=== PATIENT | female | born 1975 | race Caucasian/White ===

== ENCOUNTER 2017-05-17 07:01 | Day surgery (SDC) | payer BC ==
[~2017-05-17 07:01] MED LIST: Lactated Ringers 1,000 ML IV SCH; Sodium Chloride 0.9% 10 ML Syringe FLUSH PRN; Sodium Chloride 0.9% 2.5 ML Syringe FLUSH PRN; ceFAZolin 2 GM in Premix Bag 1 BAG IV ONE
--- NOTE | 2017-05-17 07:59 | PCM.PREANE ---
Preanesthetic Assessment - Anesthesia/Transfusion/Family Hx Anesthesia History: Prior Anesthesia Without Reaction Family History of Anesthesia Reaction: No Transfusion History: No Prior Transfusion(s) Intubation History: Unknown - Review of Systems General: No Symptoms Pulmonary: No Symptoms Cardiovascular: No Symptoms Gastrointestinal: No Symptoms Neurological: No Symptoms Other: Reports: None - Physical Assessment O2 Sat by Pulse Oximetry: 96 Respiratory Rate: 16 Vital Signs: Last Vital Signs Temp 36.8 C 05/17/17 07:16 Pulse 84 05/17/17 07:16 Resp 16 05/17/17 07:16 BP 132/87 05/17/17 07:16 Pulse Ox 96 05/17/17 07:16 Height: 1.65 m Weight: 95.708 kg ASA Class: 2 Mental Status: Alert & Oriented x3 Airway Class: Mallampati = 2 Dentition: Reports: Normal Dentition Thyro-Mental Finger Breadths: 3 Mouth Opening Finger Breadths: 2 ROM/Head Extension: Full Lungs: Clear to Auscultation, Normal Respiratory Effort Cardiovascular: Regular Rate, Regular Rhythm - Lab Values: Laboratory Last Values Urine HCG, Qual NEGATIVE (NEGATIVE) 05/17/17 07:06 - Allergies Allergies/Adverse Reactions: Allergies Allergy/AdvReac Type Severity Reaction Status Date / Time No Known Allergies Allergy Verified 02/11/16 13:22 - Blood Blood Available: No - Anesthesia Plan Pre-Op Medication Ordered: None Beta Mark: Metoprolol Med Last Dose Date: 05/17/17 Med Last Dose Time: 06:00 - Acknowledgements Anesthesia Type Planned: General Anesthesia Pt an Appropriate Candidate for the Planned Anesthesia: Yes Alternatives and Risks of Anesthesia Discussed w Pt/Guardian: Yes Pt/Guardian Understands and Agrees with Anesthesia Plan: Yes PreAnesthesia Questionnaire HEENT History: Reports: Other (See Below) Other HEENT History: wears glasses Cardiovascular History: Reports: Hypertension Respiratory History: Reports: None Gastrointestinal History: Reports: GERD, Hiatal Hernia Genitourinary History: Reports: None [facility] History: Reports: Musculoskeletal History: Reports: None Neurological History: Reports: None Psychiatric History: Reports: Anxiety, Depression Endocrine/Metabolic History: Reports: Obesity/BMI 30+ Hematologic History: Reports: None Immunologic History: Reports: None Oncologic (Cancer) History: Reports: Breast (left breast infiltrating ductal carcinoma) Dermatologic History: Reports: None - Past Surgical History Head Surgeries/Procedures: Reports: None GI Surgical History: Reports: Bariatric Procedure, Cholecystectomy Musculoskeletal Surgical History: Reports: Arthroscopic Knee (lt. ACL repair ' 16 (Dr Bowie)) Dermatological Surgical History: Reports: Plastic Surgical Reconstruction/ Repair (abdominoplasty) - SUBSTANCE USE Smoking Status *Q: Former Smoker Tobacco Use Within Last Twelve Months: Cigarettes Recreational Drug Use History: No - HOME MEDS Home Medications: Home Meds Metoprolol Succinate [Toprol XL 50mg] 50 mg PO DAILY 02/11/16 [History] Venlafaxine HCl [Venlafaxine HCl ER] 150 mg PO DAILY 02/11/16 [History] Pantoprazole Sodium 40 mg PO DAILY 05/15/17 [History] Sucralfate 1 gm PO QID 05/15/17 [History] - CURRENT (IN HOUSE) MEDS Current Meds: Current Medications Lactated Ringer's (Ringers, Lactated) 1,000 mls @ 125 mls/hr IV ASDIRECTED PAULO Last Admin: 05/17/17 07:17 Dose: 125 mls/hr Sodium Chloride (Saline Flush) 10 ml FLUSH ASDIRECTED PRN PRN Reason: Keep Vein Open Sodium Chloride (Saline Flush) 2.5 ml FLUSH ASDIRECTED PRN PRN Reason: Keep Vein Open Discontinued Medications Cefazolin Sodium/Dextrose 2 gm (/ Premix) 50 mls @ 100 mls/hr IV ONETIME ONE Stop: 05/15/17 10:07
[2017-05-17] MEDS ORDERED: fentaNYL 100 MCG/2 ML SDV IVPUSH PRN (08:52)
[2017-05-17] MEDS ORDERED: Lidocaine 1% 20 ML MDV INJECT STA (09:03)
--- NOTE | 2017-05-17 11:24 | US ---
EXAMINATION: Ultrasound guided left breast wire localization HISTORY: Breast cancer COMPARISON: 04/10/2017 TECHNIQUE: The procedure, risks, and benefits were discussed with the patient. Consent was obtained. The mass at the 2:00 position of the left breast was again identified. The overlying area was sterile ly prepped. 1% lidocaine was administered for local anesthesia. Using ultrasound guidance a wire loca lization needle was advanced through the mass and the hook was employed on the opposite side. The pat ient tolerated the procedure well. IMPRESSION: Successful ultrasound-guided wire localization of the left breast mass.
--- NOTE | 2017-05-17 14:06 | PCM.OPNOTE ---
- General Post-Op/Procedure Note Date of Surgery/Procedure: 05/17/17 Operative Procedure(s): Left breast sentinel lymph node biopsy and lumpectomy Findings: 4 lymph nodes in left axilla. Max jose count was 2000. Wire localized lumpectomy speciment with two re-resected posterior margins Pre Op Diagnosis: left breast invasive ductal carcinoma Post-Op Diagnosis: same Anesthesia Technique: General ET Tube Primary Surgeon: Ayla Arroyo Fluid Replacement, Intraop: 2,000 Output, Urine Amount: 100 EBL in mLs: 25 Condition: Good
[2017-05-17] MEDS ORDERED: Acetaminophen/oxyCODONE 325-5 MG Tab PO PRN (14:15)
--- NOTE | 2017-05-17 14:55 | OR ---
SURGEON: RANJIT SMITH MD DATE OF PROCEDURE: 05/17/2017 PREOPERATIVE DIAGNOSIS: Invasive ductal carcinoma of the left breast. POSTOPERATIVE DIAGNOSIS: Invasive ductal carcinoma of the left breast. PROCEDURE PERFORMED: Left breast sentinel lymph node biopsy and wire localized lumpectomy. ANESTHESIA: General endotracheal anesthesia. FLUIDS: 2000 mL crystalloid. URINE OUTPUT: 100 mL. ESTIMATED BLOOD LOSS: 25 mL. FINDINGS: Four lymph nodes in the left axilla, Max's [place] count was 2000, wire localized lumpectomy specimen with 2 reresected posterior margins. COMPLICATIONS: None. INDICATIONS: The patient is a 41-year-old female who recently had a mass discovered on mammogram. This was biopsied and found to be invasive ductal carcinoma. The patient has no clinical lymphadenopathy. After discussion of the surgical options, the patient would like to undergo a wire localized left breast lumpectomy and sentinel lymph node biopsy. We discussed the procedure, expected perioperative course, and risks including bleeding, infection, or damage to surrounding structures. The patient verbalized understanding and wishes to proceed. PROCEDURE IN DETAIL: The patient was brought into the OR and placed on the OR table in supine position with the left arm out on an arm board. A time-out was completed verifying the patient's name, age, date of , allergies, and procedure to be performed. General endotracheal anesthesia was induced. The chest and left arm were prepped and draped in usual standard fashion. A 1% Lymphazurin blue was injected in circumferential fashion around the areola. The area was then massaged for 5 minutes. A Jesusita counter was then used to locate an area of maximum intensity in the left axilla. The highest count I received on the skin was around 300. A curvilinear incision was made over the medial inferior border of the axillary hair. The area was first anesthetized with 0.5% Marcaine plain. Cautery was used to dissect down to the subcutaneous fat. I identified a lymphatic channel that traveled down to the axillary fat. I followed this using blunt dissection with retractors and sharp dissection with a Metzenbaum scissors. I used the Jesusita counter to guide me to the area of the hottest node. I identified a blue lymph node and excised it in the fat around it. The 1st specimen I excised the Jesusita count of 1200. There was still radioactivity in the axilla and I dissected down further into the axillary fat, discovered a large lymph node that appeared blue. This Jesusita count was 2000. I excised this piece. I then placed the Jesusita counter back in the axilla and no further radioactivity was noted. The axillary fat and associated lymph nodes were then sent to pathology for frozen section labeled as axillary lymph nodes. I then turned my attention to the left breast. The patient had a wire in the left upper outer quadrant. A curvilinear incision was made extending superiorly up the breast. This was based on the direction of the wire and mammographic orientation. I dissected down approximately 2 cm and then began my dissection widely around my lumpectomy specimen. Along my posterior margin, I encountered the tip of the wire. I then took a deeper resection margin along the posterior wall and removed the lumpectomy specimen. All four sides were oriented with a silk suture. Upon inspecting my resection margin, I felt the posterior wall was somewhat superficial. I reresected an approximately 1 cm x 1 cm area at the base. This was sent as posterior reresection margin. The specimen was then sent to radiology where mammographic image was taken. The specimen contained the wire and the mammographic abnormality. I spoke with the pathologist, who was concerned that the posterior margin was closed. My reresected margin had no tumor burden, but there was an area more anterior to this where my margin was closed. I returned to the operating room, and reresected a posterior wedge of tissue. This was sent to the pathologist and was negative for any tumor burden. Hemostasis was achieved with cautery. The breast mound covered the defect nicely. I marked my posterior margin with small clips. Hemostasis was achieved using cautery at the lumpectomy site. The hemostasis was achieved in the axillary region with clips and cautery. Frozen section of my axillary tissue noted 4 lymph nodes that did not appear to have tumor cells in them. The wounds were then closed with interrupted 3-0 Vicryl and the subcutaneous fat and a running 4-0 Monocryl sutures in the subcuticular space. Steri-Strips and sterile dressings were applied. The patient tolerated procedure well and was taken to PACU in stable condition. JOHN PAUL TURCIOS /[id number]
--- NOTE | 2017-05-17 15:17 | NM ---
EXAMINATION: Left breast lymphoscintigraphy HISTORY: Breast cancer TECHNIQUE: The left periareolar region was cleaned with ChloraPrep. A total of 8 intradermal injectio ns were performed using a total of 0.8 mL of a solution containing 1 mL of saline and 1 mCi of techne tium 99 M labeled sulfur colloid. FINDINGS/IMPRESSION: Initially a single focus of uptake is noted at the approximate 11:00 position of the left breast in the upper inner quadrant. An adjacent focus shows up with subsequent imaging. The se likely represent intramammary lymph nodes. No definite activity is noted within the left axillary region x 1 h.
[2017-05-17 15:39] VITALS: BP 122/63
--- NOTE | 2017-05-17 15:58 | MY ---
EXAMINATION: Surgical specimen HISTORY: Left breast cancer COMPARISON: 03/29/2017 TECHNIQUE: Specimen mammograms obtained. FINDINGS: Imaging of the specimen demonstrates the spiculated mass of concern on the primary specimen . Mammographically clear margins cannot confirmed along the inferior aspect of the specimen opposite of the suture. However a second small specimen sample was also obtained. IMPRESSION: 1. The surgical specimen demonstrates the mass of concern.
== END 2017-05-17 15:44 | disposition home or self-care (01) ==
LOC: MW.NM 07:01 → MW.SDS 07:01 → EDSTATUS 09:15 → MW.SDS 15:44 → MW.NM 15:44
PROVIDERS: ATTEND Surgery
DX: C50.912 Malignant neoplasm of unspecified site of left female breast (principal); Z92.89 Personal history of other medical treatment
CPT/HCPCS: 19286; 76098; 78195; 81025; 88305; 88307; 88309; 88331; 88332; A9541; J0690; J7120; 01610

== ENCOUNTER 2019-09-09 06:29 | Day surgery (SDC) | payer BC ==
[~2019-09-09 06:29] MED LIST changes: +Sodium Chloride 0.9% 10 ML SDV IV PRN
[2019-09-09] MEDS ORDERED: Bupivacaine 0.5% 10 ML SDV ONE (07:16)
[2019-09-09] MEDS ORDERED: Lidocaine 1% 20 ML MDV ONE (07:17)
[2019-09-09] MEDS ORDERED: Heparin Sodium 100 Units/ML 3 ML Syringe ONE (07:17)
--- NOTE | 2019-09-09 07:25 | PCM.PREANE ---
Preanesthetic Assessment - Anesthesia/Transfusion/Family Hx Anesthesia History: Prior Anesthesia Without Reaction (mast with reconst in [place] last month) Family History of Anesthesia Reaction: No Transfusion History: No Prior Transfusion(s) Intubation History: Unknown - Review of Systems General: No Symptoms Pulmonary: No Symptoms Cardiovascular: No Symptoms Gastrointestinal: No Symptoms Neurological: No Symptoms Other: Reports: None - Physical Assessment NPO Status Date: 09/08/19 Vital Signs: Last Vital Signs Temp 97.7 F 09/09/19 07:05 Pulse 89 09/09/19 07:05 Resp 16 09/09/19 07:05 BP 134/89 09/09/19 07:05 Pulse Ox 94 L 09/09/19 07:05 Height: 5 ft 5 in Weight: 98.883 kg ASA Class: 2 Mental Status: Alert & Oriented x3 Airway Class: Mallampati = 2 Dentition: Reports: Broken Tooth/Teeth, Caries ROM/Head Extension: Full Lungs: Clear to Auscultation, Normal Respiratory Effort Cardiovascular: Regular Rate, Regular Rhythm - Allergies Allergies/Adverse Reactions: Allergies Allergy/AdvReac Type Severity Reaction Status Date / Time No Known Allergies Allergy Verified 09/09/19 07:05 - Blood Blood Available: No - Anesthesia Plan Pre-Op Medication Ordered: None - Acknowledgements Anesthesia Type Planned: General Anesthesia Pt an Appropriate Candidate for the Planned Anesthesia: Yes Alternatives and Risks of Anesthesia Discussed w Pt/Guardian: Yes Pt/Guardian Understands and Agrees with Anesthesia Plan: Yes Additional Comments: PMH: breast ca, smoker, HTN, poor dentition PLAN: ga PreAnesthesia Questionnaire HEENT History: Reports: Other (See Below) Other HEENT History: wears glasses Cardiovascular History: Reports: Hypertension Respiratory History: Reports: None Gastrointestinal History: Reports: GERD, Hiatal Hernia Genitourinary History: Reports: None [employer] History: Reports: Musculoskeletal History: Reports: None Neurological History: Reports: None Psychiatric History: Reports: Anxiety, Depression Endocrine/Metabolic History: Reports: Obesity/BMI 30+ Hematologic History: Reports: B12 Deficiency Immunologic History: Reports: Immunosuppression Oncologic (Cancer) History: Reports: Breast Dermatologic History: Reports: None - Past Surgical History Head Surgeries/Procedures: Reports: None HEENT Surgical History: Reports: None Respiratory Surgical History: Reports: None GI Surgical History: Reports: Bariatric Procedure, Cholecystectomy, Other (See Below) Other GI Surgeries/Procedures: Abdominoplasty Female Surgical History: Reports: Breast Biopsy, Mastectomy, Other (See Below ) Other Female Surgeries/Procedures: breast biopsy, sentinal node bx, bilateral mastectomy with reconstruction Neurological Surgical History: Reports: None Musculoskeletal Surgical History: Reports: Arthroscopic Knee Other Musculoskeletal Surgeries/Procedures:: left ACL repair Oncologic Surgical History: Reports: None Dermatological Surgical History: Reports: Plastic Surgical Reconstruction/Repair - SUBSTANCE USE Smoking Status *Q: Former Smoker Tobacco Use Within Last Twelve Months: Cigarettes Recreational Drug Use History: No - HOME MEDS Home Medications: Home Meds Metoprolol Succinate [Toprol XL 50mg] 50 mg PO QAM 02/11/16 [History] Venlafaxine HCl [Venlafaxine HCl ER] 150 mg PO DAILY 02/11/16 [History] Pantoprazole Sodium 40 mg PO DAILY 05/15/17 [History] - CURRENT (IN HOUSE) MEDS Current Meds: Current Medications Lactated Ringer's (Ringers, Lactated) 1,000 mls @ 125 mls/hr IV ASDIRECTED PAULO Last Admin: 09/09/19 07:04 Dose: 125 mls/hr Sodium Chloride (Saline Flush) 10 ml FLUSH ASDIRECTED PRN PRN Reason: Keep Vein Open Sodium Chloride (Saline Flush) 2.5 ml FLUSH ASDIRECTED PRN PRN Reason: Keep Vein Open Sodium Chloride (Normal Saline) 10 ml IV ASDIRECTED PRN PRN Reason: IV Use Discontinued Medications Bupivacaine HCl (Sensorcaine-Mpf 0.5%) Confirm Administered Dose 10 ml .ROUTE .STK-MED ONE Stop: 09/09/19 07:17 Heparin Sodium (Porcine) (Heparin Lock Flush 100 Units/Ml) Confirm Administered Dose 600 unit .ROUTE .STK-MED ONE Stop: 09/09/19 07:18 Cefazolin Sodium/Dextrose 2 gm (/ Premix) 50 mls @ 100 mls/hr IV ONETIME ONE Stop: 09/08/19 15:47 Lidocaine HCl (Xylocaine 1%) Confirm Administered Dose 20 ml .ROUTE .STK-MED ONE Stop: 09/09/19 07:18
[2019-09-09] MEDS ORDERED: Atropine 0.1 MG/ML 10 ML Syringe IVPUSH PRN ×2 (09:00)
[2019-09-09] MEDS ORDERED: 50% Dextrose in Water 50 ML Syringe IVPUSH PRN (09:00)
[2019-09-09] MEDS ORDERED: Naloxone 0.4 MG/ML Syringe IVPUSH PRN (09:00)
[2019-09-09] MEDS ORDERED: Albuterol 0.083% 2.5 MG/3 ML Neb Soln NEB PRN (09:00)
[2019-09-09] MEDS ORDERED: fentaNYL 100 MCG/2 ML SDV IVPUSH PRN (09:00)
[2019-09-09] MEDS ORDERED: EPINEPHrine 1:10,000 1 MG/10 ML Syringe IVPUSH PRN (09:00)
[2019-09-09] MEDS ORDERED: Midazolam 1 MG/ML 2 ML SDV ONE (09:14)
[2019-09-09] MEDS ORDERED: fentaNYL 100 MCG/2 ML SDV ONE (09:14)
[2019-09-09] MEDS ORDERED: Propofol 200 MG/20 ML SDV ONE (09:14)
[2019-09-09] MEDS ORDERED: Ketorolac 30 MG/ML SDV ONE (09:29)
[2019-09-09] MEDS ORDERED: ceFAZolin 1 GM Vial ONE (10:27)
[2019-09-09] MEDS ORDERED: Sodium Chloride 0.9% 20 ML ONE (10:27)
[2019-09-09] MEDS ORDERED: Octyl 2-Cyanoacrylate 1 Tube ONE (11:11)
--- NOTE | 2019-09-09 11:28 | PCM48HPAN ---
Post Anesthesia Note - EVALUATION WITHIN 48HRS OF ANESTHETIC Vital Signs in Normal Range: Yes Patient Participated in Evaluation: Yes Respiratory Function Stable: Yes Airway Patent: Yes Cardiovascular Function Stable: Yes Hydration Status Stable: Yes Pain Control Satisfactory: Yes Nausea and Vomiting Control Satisfactory: Yes Mental Status Recovered: Yes Vital Signs: Last Vital Signs Temp 97.7 F 09/09/19 07:05 Pulse 89 09/09/19 07:05 Resp 16 09/09/19 07:05 BP 134/89 09/09/19 07:05 Pulse Ox 94 L 09/09/19 07:05 - COMMENTS/OBSERVATIONS Free Text/Narrative:: bypassed phase 1 PACU, after MAC anesthesia
--- NOTE | 2019-09-09 11:29 | PCM.OPNOTE ---
- General Post-Op/Procedure Note Date of Surgery/Procedure: 09/09/19 Operative Procedure(s): Right internal jugular port a cath placement Findings: Right internal jugular port a cath placement Pre Op Diagnosis: Breast cancer Post-Op Diagnosis: same Anesthesia Technique: Local, MAC Primary Surgeon: Ayla Arroyo Fluid Replacement, Intraop: 1,000 EBL in mLs: 10 Condition: Good
--- NOTE | 2019-09-09 12:46 | CR ---
Chest: 2 fluoroscopic spot views were obtained of the right upper chest utilizing C-arm device. Study shows placement of Port-A-Cath. Tip of the catheter lies within the area of the superior vena cava. Fluoroscopy time given as 46.4 seconds. Impression: 1. Procedural study as noted above. Diagnostic code #1 This report was dictated in MDT
--- NOTE | 2019-09-09 12:46 | CR ---
Chest: Portable view of the chest was obtained. Comparison: No prior chest imaging is available. Heart size and mediastinum are normal. Right-sided infusion port is seen. Lungs are clear with no acute parenchymal change. Surgical clips are seen within the left axillary region. Impression: 1. Right-sided infusion port. This appears satisfactory in position. 2. Nothing acute seen on frontal chest x-ray. Diagnostic code #2 This report was dictated in MDT
[2019-09-09 13:18] VITALS: BP 123/75; PULSE 83
--- NOTE | 2019-09-09 14:51 | OR ---
SURGEON: AYLA ARROYO MD DATE OF PROCEDURE: 09/09/2019 PREOPERATIVE DIAGNOSIS: Breast cancer. POSTOPERATIVE DIAGNOSIS: Breast cancer. PROCEDURE PERFORMED: Right internal jugular Port-A-Cath placement. PRIMARY SURGEON: Ayla Arroyo MD ANESTHESIA: MAC, local. FLUIDS: 1000 mL of crystalloid. ESTIMATED BLOOD LOSS: 10 mL. FINDINGS: Right internal jugular Port-A-Cath placement. COMPLICATIONS: None. INDICATIONS: The patient is a 43-year-old female with recurrent breast cancer. She will be undergoing chemotherapy and is in need of a Port-A-Cath placement. The patient and I discussed the procedure, expected perioperative course, and risks. She verbalized understanding and wishes to proceed. PROCEDURE IN DETAIL: The patient was brought into the OR and placed on the OR table in supine position. A time-out was completed verifying the patient's name, age, date of , allergies, and procedure to be performed. Monitored anesthesia care was induced. Using ultrasound, I verified the vascular anatomy of the right side of the neck. A photograph of this was taken and placed in the patient's chart. The arms were tucked at the patient's side and a roll placed under her shoulders. The neck and chest were then prepped and draped in usual standard fashion. The patient was placed into reverse Trendelenburg position. An ultrasound was used to reverify the vascular anatomy of the neck. I then anesthetized the area overlying the right internal jugular vein as well as the right anterior chest wall and the catheter tract with 0.5% Marcaine plain and 1% lidocaine plain. Once the patient was adequately anesthetized, I placed a guide needle into the right internal jugular vein under ultrasound guidance. A good return of venous blood was noted. A guidewire was placed down the needle into the chest. It was secured on the drapes. I then used an ultrasound to verify that the guidewire was in the right internal jugular vein. Fluoroscopy was brought in and verified placement of the guidewire into the vena cava. I then turned my attention to the right side of the chest. I made a 3 cm incision using a 15 blade. Approximately, it was 3 fingerbreadths below the lateral right clavicle. Cautery was used to carry this through to the subcutaneous tissues. The subcutaneous pocket where the port would lie was then created as well. The field was made hemostatic. I then used a tunneling device to tunnel the catheter tubing from the chest site up to the neck insertion site. A vascular dilator and sheath were then placed over the guidewire. I dilated up my vascular tract under fluoroscopic guidance. The dilator and guidewire were removed. The catheter tubing was then placed down the vascular sheath into the chest under fluoroscopic guidance. The vascular sheath was peeled away. I then pulled back on the catheter tubing so that the tip of the catheter was in the superior vena cava. The catheter was then aspirated and good return of venous blood was noted. It was flushed with injectable saline. I then trimmed the catheter tubing to 23 cm and placed the Port-A-Cath device on the tubing itself. The Port-A-Cath was placed into the chest, the subcutaneous chest wall pocket. It was secured on either side with interrupted 2-0 Prolene sutures. The port was then accessed and a good return of venous blood was noted. It was then locked with 3 mL of heparinized saline. The incision was then closed with interrupted 3-0 Vicryl in the subcutaneous fat layer and the skin was closed with a running 4-0 Monocryl stitch. The insertion site on the neck was closed with an interrupted 4-0 Monocryl suture. Dermabond and sterile dressings were applied. The patient tolerated the procedure well. She was taken to the postoperative care area in stable condition. All counts were complete and correct at the end of the case. JOHN PAUL TURCIOS /[id number]
== END 2019-09-09 12:20 | disposition home or self-care (01) ==
LOC: MW.SDS 06:29
PROVIDERS: ATTEND Surgery
DX: C50.912 Malignant neoplasm of unspecified site of left female breast (principal); I10 Essential (primary) hypertension; F17.210 Nicotine dependence, cigarettes, uncomplicated; E66.9 Obesity, unspecified; Z90.13 Acquired absence of bilateral breasts and nipples; Z79.899 Other long term (current) drug therapy; Z98.890 Other specified postprocedural states; Z68.36 Body mass index [BMI] 36.0-36.9, adult
CPT/HCPCS: 36561; 71045; 76000; 81025; A9270; J0690; J1642; J2001; J2250; J2704; J3010; J3490; J7120; J1885

== ENCOUNTER 2019-09-15 20:13 | Observation (INO) | payer BC ==
[2019-09-15] MEDS ORDERED: Sodium Chloride 0.9% 1,000 ML IV ONE (21:01)
[2019-09-15 21:39] LABS: CARBON DIOXIDE,CO2 23.9 mmol/L (21.0-32.0); POTASSIUM,K 3.9 mmol/L (3.5-5.1)
[2019-09-15] MEDS ORDERED: Piperacillin/Tazobactam 4.5 GM in Sodium Chloride 0.9% 100 ML IV SCH (22:00)
[2019-09-15] MEDS ORDERED: Acetaminophen 325 MG Tab PO PRN (22:12)
--- NOTE | 2019-09-15 22:16 | EDM.PDOC ---
ED HPI GENERAL MEDICAL PROBLEM - General Chief Complaint: General Stated Complaint: FEVER & BODY ACHE Time Seen by Provider: 09/15/19 20:44 Source of Information: Reports: Patient History Limitations: Reports: No Limitations - History of Present Illness INITIAL COMMENTS - FREE TEXT/NARRATIVE: Patient is a 43-year-old female who is complaining of having fever and body aches which started today and have gotten worse. Patient's temperature at home was 102. She did take some Tylenol prior to arrival. Patient had a Port-A-Cath placed 1 week ago and the area surrounding the Port-A-Cath is very tender and warm to touch and erythematous. Patient denies any nausea or vomiting or diarrhea. She denies any dysuria or hematuria. She has no cough or shortness of breath or chest pain. She denies any pain in her back. She denies a headache or sore throat or sinus pressure. There is no other source of infection other than her recently placed port. She has no other complaints. Onset: Today - Related Data Allergies Allergy/AdvReac Type Severity Reaction Status Date / Time No Known Allergies Allergy Verified 09/09/19 07:05 Home Meds: Home Meds Metoprolol Succinate [Toprol XL 50mg] 50 mg PO QAM 02/11/16 [History] Venlafaxine HCl [Venlafaxine HCl ER] 150 mg PO DAILY 02/11/16 [History] Pantoprazole Sodium 40 mg PO DAILY 05/15/17 [History] Past Medical History HEENT History: Reports: Other (See Below) Other HEENT History: wears glasses Cardiovascular History: Reports: Hypertension Respiratory History: Reports: None Gastrointestinal History: Reports: GERD, Hiatal Hernia Genitourinary History: Reports: None [employer]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: Musculoskeletal History: Reports: None Neurological History: Reports: None Psychiatric History: Reports: Anxiety, Depression Endocrine/Metabolic History: Reports: Obesity/BMI 30+ Hematologic History: Reports: B12 Deficiency Immunologic History: Reports: Immunosuppression Oncologic (Cancer) History: Reports: Breast Dermatologic History: Reports: None - Past Surgical History Head Surgeries/Procedures: Reports: None HEENT Surgical History: Reports: None Respiratory Surgical History: Reports: None GI Surgical History: Reports: Bariatric Procedure, Cholecystectomy, Other (See Below) Other GI Surgeries/Procedures: Abdominoplasty Female Surgical History: Reports: Breast Biopsy, Mastectomy, Other (See Below ) Other Female Surgeries/Procedures: breast biopsy, sentinal node bx, bilateral mastectomy with reconstruction Neurological Surgical History: Reports: None Musculoskeletal Surgical History: Reports: Arthroscopic Knee Other Musculoskeletal Surgeries/Procedures:: left ACL repair Oncologic Surgical History: Reports: None Dermatological Surgical History: Reports: Plastic Surgical Reconstruction/Repair ED ROS GENERAL - Review of Systems Review Of Systems: Comprehensive ROS is negative, except as noted in HPI. ED EXAM, GENERAL - Physical Exam Exam: See Below Exam Limited By: No Limitations General Appearance: Alert, No Apparent Distress Head: Atraumatic, Normocephalic Neck: Normal Inspection, Supple Respiratory/Chest: No Respiratory Distress, Lungs Clear, Normal Breath Sounds Cardiovascular: Regular Rate, Rhythm, No JVD Extremities: Normal Inspection Neurological: Alert, Oriented, CN II-XII Intact Psychiatric: Normal Affect, Normal Mood Skin Exam: Warm, Dry Lymphatic: No Adenopathy Course - Vital Signs Text/Narrative:: Patient's white blood cell count is 10.4 with 81% neutrophils. Her lactate returned at 2.2. Initial heart rate was 113. Patient was given a liter of fluid and Dr. Rowland was called who came to the department assessed her and is admitting her for IV antibiotics. Patient's been started on Zosyn 4.5 g IV. Cultures were drawn prior to this. Last Recorded V/S: Last Vital Signs Temp 36.8 C 09/15/19 20:49 Pulse 113 H 09/15/19 20:49 Resp 18 09/15/19 20:49 BP 143/75 H 09/15/19 20:49 Pulse Ox 97 09/15/19 20:49 - Orders/Labs/Meds Orders: Active Orders 24 hr Category Date Time Status Notify Provider Consults [RC] ASDIRECTED Care 09/15/19 22:05 Active Consult to Physician [CONS] Stat Cons 09/15/19 22:05 Active CULTURE BLOOD [BC] Stat Lab 09/15/19 21:10 Received CULTURE BLOOD [BC] Stat Lab 09/15/19 21:42 Received Piperacillin/Tazobactam [Piperacil-Tazobact] 4.5 gm Med 09/15/19 22:00 Active Sodium Chloride 0.9% [Normal Saline] 100 ml IV Q8H Blood Culture x2 Reflex Set [OM.PC] Stat Oth 09/15/19 21:01 Ordered Medication Orders Piperacillin Sod/Tazobactam (Sod 4.5 gm/ Sodium Chloride) 100 mls @ 100 mls/hr IV Q8H [facility] Labs: Laboratory Tests 09/15/19 09/15/19 09/15/19 Range/Units 21:10 21:10 21:10 WBC 10.54 (4.0-11.0) K/uL RBC 3.93 L (4.30-5.90) M/uL Hgb 11.2 L (12.0-16.0) g/dL Hct 35.6 L (36.0-46.0) % MCV 90.6 (80.0-98.0) fL MCH 28.5 (27.0-32.0) pg MCHC 31.5 (31.0-37.0) g/dL RDW Std Deviation 54.6 (28.0-62.0) fl RDW Coeff of Dionicio 17 H (11.0-15.0) % Plt Count 309 (150-400) K/uL MPV 9.20 (7.40-12.00) fL Neut % (Auto) 91.1 H (48.0-80.0) % Lymph % (Auto) 3.8 L (16.0-40.0) % [place] % (Auto) 3.8 (0.0-15.0) % Eos % (Auto) 1.2 (0.0-7.0) % Baso % (Auto) 0.1 (0.0-1.5) % Neut # (Auto) 9.6 H (1.4-5.7) K/uL Lymph # (Auto) 0.4 L (0.6-2.4) K/uL [place] # (Auto) 0.4 (0.0-0.8) K/uL Eos # (Auto) 0.1 (0.0-0.7) K/uL Baso # (Auto) 0.0 (0.0-0.1) K/uL Nucleated RBC % 0.0 /100WBC Nucleated RBCs # 0 K/uL Lactate 2.2 H* (0.20-2.00) mmol/L Sodium 133 L (136-145) mmol/L Potassium 3.9 (3.5-5.1) mmol/L Chloride 98 (98-107) mmol/L Carbon Dioxide 23.9 (21.0-32.0) mmol/L BUN 11 (7.0-18.0) mg/dL Creatinine 1.0 (0.6-1.0) mg/dL Est Cr Clr Drug Dosing 63.93 mL/min Estimated GFR (MDRD) 60.0 ml/min Glucose 103 (74-106) mg/dL Calcium 8.0 L (8.5-10.1) mg/dL Total Bilirubin 0.3 (0.2-1.0) mg/dL AST 30 (15-37) IU/L ALT 27 (14-63) IU/L Alkaline Phosphatase 154 H (46-116) U/L Total Protein 7.0 (6.4-8.2) g/dL Albumin 3.3 L (3.4-5.0) g/dL Globulin 3.7 (2.6-4.0) g/dL Albumin/Globulin Ratio 0.9 (0.9-1.6) Meds: Medications Generic Name Dose Route Start Last Admin Trade Name Freq PRN Reason Stop Dose Admin Piperacillin Sod/Tazobactam 100 mls @ 100 mls/hr 09/15/19 22:00 Sod 4.5 gm/ Sodium Chloride IV Q8H PAULO Discontinued Medications Generic Name Dose Route Start Last Admin Trade Name Freq PRN Reason Stop Dose Admin Sodium Chloride 1,000 mls @ 999 mls/hr 09/15/19 21:01 09/15/19 21:17 Normal Saline IV 09/15/19 22:01 999 mls/hr .BOLUS ONE Administration Departure - Departure Time of Disposition: 22:15 Disposition: Refer to Observation Condition: Good Clinical Impression: Catheter-related bloodstream infection - Discharge Information Referrals: Ayla Arroyo MD [Primary Care Provider] - Sepsis Event Note - Evaluation Sepsis Screening Result: No Definite Risk - Focused Exam Vital Signs: Vital Signs Temp Pulse Resp BP Pulse Ox 09/15/19 20:49 36.8 C 113 H 18 143/75 H 97 Date Exam was Performed: 09/15/19 Time Exam was Performed: 22:11 - My Orders Last 24 Hours: My Active Orders 09/15/19 21:01 Blood Culture x2 Reflex Set [OM.PC] Stat 09/15/19 21:10 CULTURE BLOOD [BC] Stat 09/15/19 21:42 CULTURE BLOOD [BC] Stat 09/15/19 22:00 Piperacillin/Tazobactam [Piperacil-Tazobact] 4.5 gm Sodium Chloride 0.9% [ Normal Saline] 100 ml IV Q8H 09/15/19 22:05 Notify Provider Consults [RC] ASDIRECTED Consult to Physician [CONS] Stat - Assessment/Plan Last 24 Hours: My Active Orders 09/15/19 21:01 Blood Culture x2 Reflex Set [OM.PC] Stat 09/15/19 21:10 CULTURE BLOOD [BC] Stat 09/15/19 21:42 CULTURE BLOOD [BC] Stat 09/15/19 22:00 Piperacillin/Tazobactam [Piperacil-Tazobact] 4.5 gm Sodium Chloride 0.9% [ Normal Saline] 100 ml IV Q8H 09/15/19 22:05 Notify Provider Consults [RC] ASDIRECTED Consult to Physician [CONS] Stat
--- NOTE | 2019-09-15 22:20 | PCM.HP.2 ---
H&P History of Present Illness - General Date of Service: 09/15/19 Admit Problem/Dx: Admission Diagnosis/Problem Admission Diagnosis/Problem Fever, cellulitis at port site Source of Information: Patient History Limitations: Reports: No Limitations - History of Present Illness Initial Comments - Free Text/Narative: Patient is a 43-year-old female who recently underwent placement of a port in her right internal jugular vein with port placement on the right anterior chest wall. This is for chemotherapy. Following recurrent breast cancer. She recently underwent bilateral mastectomy with reconstruction. That was done in July of this year. She is now going to start chemotherapy and has had her port placed within the last 7-10 days. This was done by Dr. Mcmahan. This afternoon she developed a temperature to 102.0. She did take some Tylenol, but her symptoms persisted. She also noticed some rigors with this and presented to the emergency room. She was noted to have erythema around her chest wall, insertion site. She is now being admitted for parenteral antibiotic therapy. Onset of Symptoms: Reports: Today Symptom Onset Date: 09/15/19 Symptom Onset Time: 14:00 Location: Reports: Chest, Other Quality: Reports: Pressure Severity: Moderate Improves with: Reports: Rest Worsens with: Reports: None Context: Reports: Sick Contact Associated Symptoms: Reports: Fever/Chills, Malaise. Denies: Confusion, Chest Pain, Cough, Headaches, Nausea/Vomiting, Rash, Seizure, Shortness of Breath, Syncope - Related Data Allergies/Adverse Reactions: Allergies Allergy/AdvReac Type Severity Reaction Status Date / Time No Known Allergies Allergy Verified 09/09/19 07:05 Home Medications: Home Meds Metoprolol Succinate [Toprol XL 50mg] 50 mg PO QAM 02/11/16 [History] Venlafaxine HCl [Venlafaxine HCl ER] 150 mg PO DAILY 02/11/16 [History] Pantoprazole Sodium 40 mg PO DAILY 05/15/17 [History] Past Medical History HEENT History: Reports: Other (See Below) Other HEENT History: wears glasses Cardiovascular History: Reports: Hypertension Respiratory History: Reports: None Gastrointestinal History: Reports: GERD, Hiatal Hernia Genitourinary History: Reports: 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 History: Reports: None Neurological History: Reports: None Psychiatric History: Reports: Anxiety, Depression Endocrine/Metabolic History: Reports: Obesity/BMI 30+ Hematologic History: Reports: B12 Deficiency Immunologic History: Reports: Immunosuppression Oncologic (Cancer) History: Reports: Breast Dermatologic History: Reports: None - Past Surgical History Head Surgeries/Procedures: Reports: None HEENT Surgical History: Reports: None Respiratory Surgical History: Reports: None GI Surgical History: Reports: Bariatric Procedure, Cholecystectomy, Other (See Below) Other GI Surgeries/Procedures: Abdominoplasty Female Surgical History: Reports: Breast Biopsy, Mastectomy, Other (See Below ) Other Female Surgeries/Procedures: breast biopsy, sentinal node bx, bilateral mastectomy with reconstruction Neurological Surgical History: Reports: None Musculoskeletal Surgical History: Reports: Arthroscopic Knee Other Musculoskeletal Surgeries/Procedures:: left ACL repair Oncologic Surgical History: Reports: None Dermatological Surgical History: Reports: Plastic Surgical Reconstruction/Repair H&P Review of Systems - Review of Systems: Review Of Systems: See Below General: Reports: Fever, Chills, Malaise, Weakness. Denies: Fatigue, Night Sweats, Diaphoresis HEENT: Denies: Headaches Pulmonary: Denies: Shortness of Breath, Wheezing, Cough Cardiovascular: Denies: Chest Pain, Palpitations, Dyspnea on Exertion, Orthopnea Gastrointestinal: Denies: Abdominal Pain, Anorexia, Black Stool, Bloody Stool, Nausea, Vomiting Genitourinary: Denies: Dysuria, Frequency, Burning, Pain, Urgency Musculoskeletal: Reports: Neck Pain (right side). Denies: Shoulder Pain Skin: Reports: Erythema (right anterior chest wall site), Wound (fresh right anterior chest incision for port). Denies: Cyanosis, Jaundice, Mottled, Pallor , Diaphoresis, Dryness Neurological: Denies: Confusion, Dizziness, Headache, Numbness, Trouble Speaking Hematologic/Lymphatic: Reports: No Symptoms Immunologic: Reports: No Symptoms Exam - Exam Exam: See Below - Vital Signs Vital Signs: Last Vital Signs Temp 98.3 F 09/15/19 20:49 Pulse 113 H 09/15/19 20:49 Resp 18 09/15/19 20:49 BP 143/75 H 09/15/19 20:49 Pulse Ox 97 09/15/19 20:49 Weight: 217 lb - Exam Quality Assessment: Central Line/PICC (port, right chest). No: Supplemental Oxygen, Skin Breakdown General: Alert, Oriented, Cooperative, Mild Distress HEENT: Conjunctiva Clear, EOMI, Nares Patent, Pupils Equal, Pupils Reactive Neck: Supple, Trachea Midline Lungs: Clear to Auscultation. No: Decreased Breath Sounds, Crackles Cardiovascular: Regular Rate, Regular Rhythm, Tachycardia. No: Systolic Murmur , Diastolic Murmur GI/Abdominal Exam: Normal Bowel Sounds, Soft, Non-Tender, No Distention (Female) Exam: Deferred Rectal (Female) Exam: Deferred Extremities: Normal Inspection, Non-Tender Peripheral Pulses: 4+: Posterior Tibial (L), Posterior Tibial (R), Dorsalis Pedis (L), Dorsalis Pedis (R) Skin: Warm, Dry, Intact, Incision (right anterior chest) Psychiatric: Alert, Normal Affect, Normal Mood, Anxious. No: Labile Mood, Depressed, Agitated - Patient Data Lab Results Last 24 hrs: Laboratory Results - last 24 hr 09/15/19 09/15/19 09/15/19 Range/Units 21:10 21:10 21:10 WBC 10.54 (4.0-11.0) K/uL RBC 3.93 L (4.30-5.90) M/uL Hgb 11.2 L (12.0-16.0) g/dL Hct 35.6 L (36.0-46.0) % MCV 90.6 (80.0-98.0) fL MCH 28.5 (27.0-32.0) pg MCHC 31.5 (31.0-37.0) g/dL RDW Std Deviation 54.6 (28.0-62.0) fl RDW Coeff of Dionicio 17 H (11.0-15.0) % Plt Count 309 (150-400) K/uL MPV 9.20 (7.40-12.00) fL Neut % (Auto) 91.1 H (48.0-80.0) % Lymph % (Auto) 3.8 L (16.0-40.0) % [place] % (Auto) 3.8 (0.0-15.0) % Eos % (Auto) 1.2 (0.0-7.0) % Baso % (Auto) 0.1 (0.0-1.5) % Neut # (Auto) 9.6 H (1.4-5.7) K/uL Lymph # (Auto) 0.4 L (0.6-2.4) K/uL [place] # (Auto) 0.4 (0.0-0.8) K/uL Eos # (Auto) 0.1 (0.0-0.7) K/uL Baso # (Auto) 0.0 (0.0-0.1) K/uL Nucleated RBC % 0.0 /100WBC Nucleated RBCs # 0 K/uL Lactate 2.2 H* (0.20-2.00) mmol/L Sodium 133 L (136-145) mmol/L Potassium 3.9 (3.5-5.1) mmol/L Chloride 98 (98-107) mmol/L Carbon Dioxide 23.9 (21.0-32.0) mmol/L BUN 11 (7.0-18.0) mg/dL Creatinine 1.0 (0.6-1.0) mg/dL Est Cr Clr Drug Dosing 63.93 mL/min Estimated GFR (MDRD) 60.0 ml/min Glucose 103 (74-106) mg/dL Calcium 8.0 L (8.5-10.1) mg/dL Total Bilirubin 0.3 (0.2-1.0) mg/dL AST 30 (15-37) IU/L ALT 27 (14-63) IU/L Alkaline Phosphatase 154 H (46-116) U/L Total Protein 7.0 (6.4-8.2) g/dL Albumin 3.3 L (3.4-5.0) g/dL Globulin 3.7 (2.6-4.0) g/dL Albumin/Globulin Ratio 0.9 (0.9-1.6) Result Diagrams: 09/15/19 21:10 09/15/19 21:10 Sepsis Event Note - Evaluation Sepsis Screening Result: No Definite Risk Possible Source of Sepsis: Wound - Focused Exam Vital Signs: Vital Signs Temp Pulse Resp BP Pulse Ox 09/15/19 20:49 98.3 F 113 H 18 143/75 H 97 Capillary Refill, Detail: Less than/Equal to (</=) 2 Seconds Pulse Description: 3+ Bounding Peripheral Pulse Location: Posterior Tibial Skin Exam (Focused Sepsis): Normal Turgor Date Exam was Performed: 09/15/19 Time Exam was Performed: 22:25 - Problem List (1) Fever and chills SNOMED Code(s): 743403409 ICD Code: R50.9 - FEVER, UNSPECIFIED Status: Acute Priority: High Current Visit: Yes (2) Catheter-related bloodstream infection SNOMED Code(s): 195343358 ICD Code: T80.211A - BLOODSTREAM INFECTION DUE TO CENTRAL VENOUS CATHETER, INIT Status: Acute Priority: High Current Visit: Yes Qualifiers: Encounter type: initial encounter Qualified Code(s): T80.211A - Bloodstream infection due to central venous catheter, initial encounter (3) Invasive ductal carcinoma of breast SNOMED Code(s): 999690461 ICD Code: C50.919 - MALIGNANT NEOPLASM OF UNSP SITE OF UNSPECIFIED FEMALE BREAST Status: Acute Priority: Low Current Visit: Yes Qualifiers: Laterality: unspecified laterality Qualified Code(s): C50.919 - Malignant neoplasm of unspecified site of unspecified female breast (4) Port-A-Cath in place SNOMED Code(s): 794511813 ICD Code: Z95.828 - PRESENCE OF OTHER VASCULAR IMPLANTS AND GRAFTS Status: Acute Priority: High Current Visit: Yes Problem List Initiated/Reviewed/Updated: Yes Orders Last 24hrs: Active Orders 24 hr Category Date Time Status Patient Status [ADT] Routine ADT 09/15/19 22:10 Ordered Antiembolic Devices [RC] PER UNIT ROUTINE Care 09/15/19 22:12 Ordered Notify Provider Consults [RC] ASDIRECTED Care 09/15/19 22:05 Active Oxygen Therapy [RC] PRN Care 09/15/19 22:10 Ordered Pulse Oximetry [RC] INTERMITTENT Care 09/15/19 22:10 Ordered Up ad Joyce [RC] PER UNIT ROUTINE Care 09/15/19 22:10 Ordered Vital Signs [RC] PER UNIT ROUTINE Care 09/15/19 22:10 Ordered Consult to Physician [CONS] Stat Cons 09/15/19 22:05 Active Nothing Per Oral Diet [DIET] Diet 09/15/19 Dinner Ordered CBC WITH MANUAL DIFF [HEME] AM Lab 09/16/19 05:11 Ordered CULTURE BLOOD [BC] Stat Lab 09/15/19 21:10 Received CULTURE BLOOD [BC] Stat Lab 09/15/19 21:42 Received Acetaminophen [Tylenol] Med 09/15/19 22:12 Ordered 325 mg PO Q4H PRN Lactated Ringers @ 125 MLS/HR(1000ml) Med 09/15/19 22:15 Ordered Lactated Ringers [Ringers, Lactated] 1,000 ml IV ASDIRECTED Piperacillin/Tazobactam [Piperacil-Tazobact] 3.375 gm Med 09/16/19 06:00 Ordered Sodium Chloride 0.9% [Normal Saline] 50 ml IV Q8H Piperacillin/Tazobactam [Piperacil-Tazobact] 4.5 gm Med 09/15/19 22:00 Active Sodium Chloride 0.9% [Normal Saline] 100 ml IV Q8H Blood Culture x2 Reflex Set [OM.PC] Stat Oth 09/15/19 21:01 Ordered Sequential Compression Device [OM.PC] Routine Oth 09/15/19 22:10 Ordered Resuscitation Status Routine Resus Stat 09/15/19 22:09 Ordered Medication Orders Piperacillin Sod/Tazobactam (Sod 4.5 gm/ Sodium Chloride) 100 mls @ 100 mls/hr IV Q8H PAULO Assessment/Plan Comment:: Patient is going to be admitted for IV antibiotics and fluid therapy. Dr. Arroyo will see in the morning and reassess need for possible port removal. Patient is full code. - Mortality Measure Prognosis:: Good
[2019-09-15] MEDS ORDERED: Piperacillin/Tazobactam 4.5 GM in Sodium Chloride 0.9% 100 ML IV STA (22:29)
[2019-09-15] MEDS: Lactated Ringers 1,000 ML IV SCH (22:41)
[2019-09-15] MEDS ORDERED: Piperacillin/Tazobactam 4.5 GM AdvVial ONE (22:46)
[2019-09-15] MEDS ORDERED: Sodium Chloride 0.9% 0 ML ONE (22:47)
[2019-09-16] MEDS ORDERED: Piperacillin/Tazobactam 3.375 GM in Sodium Chloride 0.9% 50 ML IV SCH (06:00)
[2019-09-16] MEDS: Lactated Ringers 1,000 ML IV SCH ×2 (07:01→16:42)
[2019-09-16] MEDS ORDERED: Lactated Ringers 1,000 ML IV ONE (07:31)
[2019-09-16] MEDS ORDERED: fentaNYL 100 MCG/2 ML SDV ONE (07:33)
[2019-09-16] MEDS ORDERED: Midazolam 1 MG/ML 2 ML SDV ONE (07:33)
--- NOTE | 2019-09-16 07:34 | PCM.PREANE ---
Preanesthetic Assessment - Anesthesia/Transfusion/Family Hx Anesthesia History: Prior Anesthesia Without Reaction Family History of Anesthesia Reaction: No Transfusion History: No Prior Transfusion(s) Intubation History: Unknown - Review of Systems General: Fever, Malaise Pulmonary: No Symptoms Cardiovascular: No Symptoms Gastrointestinal: No Symptoms Neurological: No Symptoms Other: Reports: None - Physical Assessment NPO Status Date: 09/15/19 Vital Signs: Last Vital Signs Temp 99.2 F 09/16/19 04:00 Pulse 87 09/16/19 04:00 Resp 16 09/16/19 04:00 BP 140/77 09/16/19 04:00 Pulse Ox 97 09/16/19 04:00 Height: 5 ft 5 in Weight: 110.677 kg ASA Class: 2E Mental Status: Alert & Oriented x3 Airway Class: Mallampati = 2 Dentition: Reports: Normal Dentition ROM/Head Extension: Full Lungs: Clear to Auscultation, Normal Respiratory Effort Cardiovascular: Regular Rate, Regular Rhythm - Lab Values: Laboratory Last Values WBC 17.01 K/uL (4.0-11.0) H 09/16/19 05:23 RBC 3.62 M/uL (4.30-5.90) L 09/16/19 05:23 Hgb 10.3 g/dL (12.0-16.0) L 09/16/19 05:23 Hct 32.7 % (36.0-46.0) L 09/16/19 05:23 MCV 90.3 fL (80.0-98.0) 09/16/19 05:23 MCH 28.5 pg (27.0-32.0) 09/16/19 05:23 MCHC 31.5 g/dL (31.0-37.0) 09/16/19 05:23 RDW Std Deviation 55.2 fl (28.0-62.0) 09/16/19 05:23 RDW Coeff of Dionicio 17 % (11.0-15.0) H 09/16/19 05:23 Plt Count 297 K/uL (150-400) 09/16/19 05:23 MPV 9.00 fL (7.40-12.00) 09/16/19 05:23 Neut % (Auto) 91.1 % (48.0-80.0) H 09/15/19 21:10 Lymph % (Auto) 3.8 % (16.0-40.0) L 09/15/19 21:10 [place] % (Auto) 3.8 % (0.0-15.0) 09/15/19 21:10 Eos % (Auto) 1.2 % (0.0-7.0) 09/15/19 21:10 Baso % (Auto) 0.1 % (0.0-1.5) 09/15/19 21:10 Neut # (Auto) 9.6 K/uL (1.4-5.7) H 09/15/19 21:10 Lymph # (Auto) 0.4 K/uL (0.6-2.4) L 09/15/19 21:10 [place] # (Auto) 0.4 K/uL (0.0-0.8) 09/15/19 21:10 Eos # (Auto) 0.1 K/uL (0.0-0.7) 09/15/19 21:10 Baso # (Auto) 0.0 K/uL (0.0-0.1) 09/15/19 21:10 Neutrophils % (Manual) 72 % (48.0-80.0) 09/16/19 05:23 Band Neutrophils % 17 % 09/16/19 05:23 Lymphocytes % (Manual) 8 % (16.0-40.0) L 09/16/19 05:23 Monocytes % (Manual) 2 % (0.0-15.0) 09/16/19 05:23 Eosinophils % (Manual) 1 % (0.0-7.0) 09/16/19 05:23 Nucleated RBC % 0.0 /100WBC 09/16/19 05:23 Absolute Seg Neuts 12.2 (1.4-5.7) H 09/16/19 05:23 Band Neutrophils # 2.9 09/16/19 05:23 Lymphocytes # (Manual) 1.4 (0.6-2.4) 09/16/19 05:23 Monocytes # (Manual) 0.3 (0.0-0.8) 09/16/19 05:23 Eosinophils # (Manual) 0.2 (0.0-0.7) 09/16/19 05:23 Nucleated RBCs # 0 K/uL 09/15/19 21:10 Lactate 1.2 mmol/L (0.20-2.00) 09/16/19 07:15 Sodium 133 mmol/L (136-145) L 09/15/19 21:10 Potassium 3.9 mmol/L (3.5-5.1) 09/15/19 21:10 Chloride 98 mmol/L (98-107) 09/15/19 21:10 Carbon Dioxide 23.9 mmol/L (21.0-32.0) 09/15/19 21:10 BUN 11 mg/dL (7.0-18.0) 09/15/19 21:10 Creatinine 1.0 mg/dL (0.6-1.0) 09/15/19 21:10 Est Cr Clr Drug Dosing 63.93 mL/min 09/15/19 21:10 Estimated GFR (MDRD) 60.0 ml/min 09/15/19 21:10 Glucose 103 mg/dL (74-106) 09/15/19 21:10 Calcium 8.0 mg/dL (8.5-10.1) L 09/15/19 21:10 Total Bilirubin 0.3 mg/dL (0.2-1.0) 09/15/19 21:10 AST 30 IU/L (15-37) 09/15/19 21:10 ALT 27 IU/L (14-63) 09/15/19 21:10 Alkaline Phosphatase 154 U/L (46-116) H 09/15/19 21:10 Total Protein 7.0 g/dL (6.4-8.2) 09/15/19 21:10 Albumin 3.3 g/dL (3.4-5.0) L 09/15/19 21:10 Globulin 3.7 g/dL (2.6-4.0) 09/15/19 21:10 Albumin/Globulin Ratio 0.9 (0.9-1.6) 09/15/19 21:10 - Allergies Allergies/Adverse Reactions: Allergies Allergy/AdvReac Type Severity Reaction Status Date / Time No Known Allergies Allergy Verified 09/15/19 23:10 - Blood Blood Available: No - Anesthesia Plan Pre-Op Medication Ordered: None - Acknowledgements Anesthesia Type Planned: MAC Pt an Appropriate Candidate for the Planned Anesthesia: Yes Alternatives and Risks of Anesthesia Discussed w Pt/Guardian: Yes Pt/Guardian Understands and Agrees with Anesthesia Plan: Yes PreAnesthesia Questionnaire HEENT History: Reports: Other (See Below) Other HEENT History: wears glasses Cardiovascular History: Reports: Hypertension Respiratory History: Reports: None Gastrointestinal History: Reports: GERD, Hiatal Hernia Genitourinary History: Reports: None NUTRITION INSTRUCTOR History: Reports: Musculoskeletal History: Reports: None Neurological History: Reports: None Psychiatric History: Reports: Anxiety, Depression Endocrine/Metabolic History: Reports: Obesity/BMI 30+ Hematologic History: Reports: B12 Deficiency Immunologic History: Reports: Immunosuppression Oncologic (Cancer) History: Reports: Breast Dermatologic History: Reports: None - Past Surgical History Head Surgeries/Procedures: Reports: None HEENT Surgical History: Reports: None Respiratory Surgical History: Reports: None GI Surgical History: Reports: Bariatric Procedure, Cholecystectomy, Other (See Below) Other GI Surgeries/Procedures: Abdominoplasty Female Surgical History: Reports: Breast Biopsy, Mastectomy, Other (See Below ) Other Female Surgeries/Procedures: breast biopsy, sentinal node bx, bilateral mastectomy with reconstruction Neurological Surgical History: Reports: None Musculoskeletal Surgical History: Reports: Arthroscopic Knee Other Musculoskeletal Surgeries/Procedures:: left ACL repair Oncologic Surgical History: Reports: None Dermatological Surgical History: Reports: Plastic Surgical Reconstruction/Repair - SUBSTANCE USE Smoking Status *Q: Former Smoker Recreational Drug Use History: No - HOME MEDS Home Medications: Home Meds Metoprolol Succinate [Toprol XL 50mg] 50 mg PO QAM 02/11/16 [History] Venlafaxine HCl [Venlafaxine HCl ER] 150 mg PO DAILY 02/11/16 [History] Pantoprazole Sodium 40 mg PO DAILY 05/15/17 [History] - CURRENT (IN HOUSE) MEDS Current Meds: Current Medications Acetaminophen (Tylenol) 325 mg PO Q4H PRN PRN Reason: Fever Greater Than 101 Last Admin: 09/16/19 06:08 Dose: 325 mg Hydromorphone HCl (Dilaudid) 0.5 mg IVPUSH Q1H PRN PRN Reason: Pain Lactated Ringer's (Ringers, Lactated) 1,000 mls @ 125 mls/hr IV ASDIRECTED PAULO Last Admin: 09/16/19 07:01 Dose: 125 mls/hr Piperacillin Sod/Tazobactam (Sod 3.375 gm/ Sodium Chloride) 50 mls @ 100 mls/ hr IV Q6H PAULO Discontinued Medications Sodium Chloride (Normal Saline) 1,000 mls @ 999 mls/hr IV .BOLUS ONE Stop: 09/15/19 22:01 Last Admin: 09/15/19 21:17 Dose: 999 mls/hr Piperacillin Sod/Tazobactam (Sod 4.5 gm/ Sodium Chloride) 100 mls @ 100 mls/hr IV Q8H PAULO Last Admin: 09/15/19 22:30 Dose: Not Given Piperacillin Sod/Tazobactam (Sod 3.375 gm/ Sodium Chloride) 50 mls @ 100 mls/ hr IV Q8H PAULO Last Admin: 09/16/19 06:10 Dose: 100 mls/hr Piperacillin Sod/Tazobactam (Sod 4.5 gm/ Sodium Chloride) 100 mls @ 100 mls/hr IV NOW STA Stop: 09/15/19 23:28 Last Admin: 09/15/19 22:42 Dose: 100 mls/hr Sodium Chloride (Normal Saline) Confirm Administered Dose 100 mls @ as directed .ROUTE .STK-MED ONE Stop: 09/15/19 22:48 Last Admin: 09/15/19 23:13 Dose: Not Given Piperacillin Sod/Tazobactam Sod (Piperacil-Tazobact) Confirm Administered Dose 4.5 gm .ROUTE .STK-MED ONE Stop: 09/15/19 22:47 Last Admin: 09/15/19 23:13 Dose: Not Given
[2019-09-16] MEDS ORDERED: Propofol 200 MG/20 ML SDV ONE (07:37)
[2019-09-16] MEDS ORDERED: Lidocaine 1% 20 ML MDV ONE (07:41)
[2019-09-16] MEDS ORDERED: Bupivacaine 0.5% 10 ML SDV ONE (07:41)
--- NOTE | 2019-09-16 07:42 | PCM.SURGPN ---
- General Info Date of Service: 09/16/19 Admission Diagnosis/Problem: Cellulitis Functional Status: Reports: Other (Febrile overnight to 38.1. Cellulitis over port site does not appear to have spread. Patient c/o malaise. ) - Review of Systems General: Reports: Fever, Weakness, Fatigue HEENT: Reports: No Symptoms Pulmonary: Reports: No Symptoms Cardiovascular: Reports: No Symptoms Gastrointestinal: Reports: No Symptoms Genitourinary: Reports: No Symptoms Musculoskeletal: Reports: No Symptoms Skin: Reports: Other (Cellulitis ) - Patient Data Vitals - Most Recent: Last Vital Signs Temp 37.3 C 09/16/19 04:00 Pulse 87 09/16/19 04:00 Resp 16 09/16/19 04:00 BP 140/77 09/16/19 04:00 Pulse Ox 97 09/16/19 04:00 Weight - Most Recent: 110.677 kg I&O - Last 24 Hours: Intake & Output 09/15/19 09/16/19 09/16/19 22:59 06:59 14:59 Intake Total 0 Output Total 700 Balance -700 Lab Results Last 24 Hrs: Laboratory Results - last 24 hr 09/15/19 09/15/19 09/15/19 Range/Units 21:10 21:10 21:10 WBC 10.54 (4.0-11.0) K/uL RBC 3.93 L (4.30-5.90) M/uL Hgb 11.2 L (12.0-16.0) g/dL Hct 35.6 L (36.0-46.0) % MCV 90.6 (80.0-98.0) fL MCH 28.5 (27.0-32.0) pg MCHC 31.5 (31.0-37.0) g/dL RDW Std Deviation 54.6 (28.0-62.0) fl RDW Coeff of Dionicio 17 H (11.0-15.0) % Plt Count 309 (150-400) K/uL MPV 9.20 (7.40-12.00) fL Neut % (Auto) 91.1 H (48.0-80.0) % Lymph % (Auto) 3.8 L (16.0-40.0) % [place] % (Auto) 3.8 (0.0-15.0) % Eos % (Auto) 1.2 (0.0-7.0) % Baso % (Auto) 0.1 (0.0-1.5) % Neut # (Auto) 9.6 H (1.4-5.7) K/uL Lymph # (Auto) 0.4 L (0.6-2.4) K/uL [place] # (Auto) 0.4 (0.0-0.8) K/uL Eos # (Auto) 0.1 (0.0-0.7) K/uL Baso # (Auto) 0.0 (0.0-0.1) K/uL Neutrophils % (Manual) (48.0-80.0) % Band Neutrophils % % Lymphocytes % (Manual) (16.0-40.0) % Monocytes % (Manual) (0.0-15.0) % Eosinophils % (Manual) (0.0-7.0) % Nucleated RBC % 0.0 /100WBC Absolute Seg Neuts (1.4-5.7) Band Neutrophils # Lymphocytes # (Manual) (0.6-2.4) Monocytes # (Manual) (0.0-0.8) Eosinophils # (Manual) (0.0-0.7) Nucleated RBCs # 0 K/uL Lactate 2.2 H* (0.20-2.00) mmol/L Sodium 133 L (136-145) mmol/L Potassium 3.9 (3.5-5.1) mmol/L Chloride 98 (98-107) mmol/L Carbon Dioxide 23.9 (21.0-32.0) mmol/L BUN 11 (7.0-18.0) mg/dL Creatinine 1.0 (0.6-1.0) mg/dL Est Cr Clr Drug Dosing 63.93 mL/min Estimated GFR (MDRD) 60.0 ml/min Glucose 103 (74-106) mg/dL Calcium 8.0 L (8.5-10.1) mg/dL Total Bilirubin 0.3 (0.2-1.0) mg/dL AST 30 (15-37) IU/L ALT 27 (14-63) IU/L Alkaline Phosphatase 154 H (46-116) U/L Total Protein 7.0 (6.4-8.2) g/dL Albumin 3.3 L (3.4-5.0) g/dL Globulin 3.7 (2.6-4.0) g/dL Albumin/Globulin Ratio 0.9 (0.9-1.6) 09/16/19 09/16/19 Range/Units 05:23 07:15 WBC 17.01 H (4.0-11.0) K/uL RBC 3.62 L (4.30-5.90) M/uL Hgb 10.3 L (12.0-16.0) g/dL Hct 32.7 L (36.0-46.0) % MCV 90.3 (80.0-98.0) fL MCH 28.5 (27.0-32.0) pg MCHC 31.5 (31.0-37.0) g/dL RDW Std Deviation 55.2 (28.0-62.0) fl RDW Coeff of Dionicio 17 H (11.0-15.0) % Plt Count 297 (150-400) K/uL MPV 9.00 (7.40-12.00) fL Neut % (Auto) (48.0-80.0) % Lymph % (Auto) (16.0-40.0) % [place] % (Auto) (0.0-15.0) % Eos % (Auto) (0.0-7.0) % Baso % (Auto) (0.0-1.5) % Neut # (Auto) (1.4-5.7) K/uL Lymph # (Auto) (0.6-2.4) K/uL [place] # (Auto) (0.0-0.8) K/uL Eos # (Auto) (0.0-0.7) K/uL Baso # (Auto) (0.0-0.1) K/uL Neutrophils % (Manual) 72 (48.0-80.0) % Band Neutrophils % 17 % Lymphocytes % (Manual) 8 L (16.0-40.0) % Monocytes % (Manual) 2 (0.0-15.0) % Eosinophils % (Manual) 1 (0.0-7.0) % Nucleated RBC % 0.0 /100WBC Absolute Seg Neuts 12.2 H (1.4-5.7) Band Neutrophils # 2.9 Lymphocytes # (Manual) 1.4 (0.6-2.4) Monocytes # (Manual) 0.3 (0.0-0.8) Eosinophils # (Manual) 0.2 (0.0-0.7) Nucleated RBCs # K/uL Lactate 1.2 (0.20-2.00) mmol/L Sodium (136-145) mmol/L Potassium (3.5-5.1) mmol/L Chloride (98-107) mmol/L Carbon Dioxide (21.0-32.0) mmol/L BUN (7.0-18.0) mg/dL Creatinine (0.6-1.0) mg/dL Est Cr Clr Drug Dosing mL/min Estimated GFR (MDRD) ml/min Glucose (74-106) mg/dL Calcium (8.5-10.1) mg/dL Total Bilirubin (0.2-1.0) mg/dL AST (15-37) IU/L ALT (14-63) IU/L Alkaline Phosphatase (46-116) U/L Total Protein (6.4-8.2) g/dL Albumin (3.4-5.0) g/dL Globulin (2.6-4.0) g/dL Albumin/Globulin Ratio (0.9-1.6) Med Orders - Current: Current Medications Acetaminophen (Tylenol) 325 mg PO Q4H PRN PRN Reason: Fever Greater Than 101 Last Admin: 09/16/19 06:08 Dose: 325 mg Hydromorphone HCl (Dilaudid) 0.5 mg IVPUSH Q1H PRN PRN Reason: Pain Lactated Ringer's (Ringers, Lactated) 1,000 mls @ 125 mls/hr IV ASDIRECTED PAULO Last Admin: 09/16/19 07:01 Dose: 125 mls/hr Piperacillin Sod/Tazobactam (Sod 3.375 gm/ Sodium Chloride) 50 mls @ 100 mls/ hr IV Q6H [facility] Lactated Ringer's (Ringers, Lactated) 1,000 mls @ 1,000 mls/hr IV .BOLUS ONE Stop: 09/16/19 08:30 Vancomycin HCl 1.5 gm/ Sodium (Chloride) 500 mls @ 333 mls/hr IV Q12H [facility] Discontinued Medications Sodium Chloride (Normal Saline) 1,000 mls @ 999 mls/hr IV .BOLUS ONE Stop: 09/15/19 22:01 Last Admin: 09/15/19 21:17 Dose: 999 mls/hr Piperacillin Sod/Tazobactam (Sod 4.5 gm/ Sodium Chloride) 100 mls @ 100 mls/hr IV Q8H [facility] Last Admin: 09/15/19 22:30 Dose: Not Given Piperacillin Sod/Tazobactam (Sod 3.375 gm/ Sodium Chloride) 50 mls @ 100 mls/ hr IV Q8H [facility] Last Admin: 09/16/19 06:10 Dose: 100 mls/hr Piperacillin Sod/Tazobactam (Sod 4.5 gm/ Sodium Chloride) 100 mls @ 100 mls/hr IV NOW STA Stop: 09/15/19 23:28 Last Admin: 09/15/19 22:42 Dose: 100 mls/hr Sodium Chloride (Normal Saline) Confirm Administered Dose 100 mls @ as directed .ROUTE .STK-MED ONE Stop: 09/15/19 22:48 Last Admin: 09/15/19 23:13 Dose: Not Given Piperacillin Sod/Tazobactam Sod (Piperacil-Tazobact) Confirm Administered Dose 4.5 gm .ROUTE .STK-MED ONE Stop: 09/15/19 22:47 Last Admin: 09/15/19 23:13 Dose: Not Given - Exam Wound/Incisions: Other (Cellulitis spread from around the port site up to the neck insertion site. This area is red, warm and tender to touch. ) General: Alert, Oriented, Cooperative Lungs: Clear to Auscultation Cardiovascular: Regular Rhythm Sepsis Event Note - Evaluation Sepsis Screening Result: No Definite Risk - Focused Exam Vital Signs: Vital Signs Temp Pulse Resp BP Pulse Ox 09/16/19 04:00 37.3 C 87 16 140/77 97 09/15/19 23:17 38.1 C 94 18 135/83 97 09/15/19 22:40 37.3 C 96 18 134/74 98 09/15/19 20:49 36.8 C 113 H 18 143/75 H 97 Date Exam was Performed: 09/16/19 Time Exam was Performed: 07:34 - Problem List & Annotations (1) Cellulitis SNOMED Code(s): 047073023 Code(s): L03.90 - CELLULITIS, UNSPECIFIED Status: Acute Current Visit: Yes (2) Catheter-related bloodstream infection SNOMED Code(s): 431708951 Code(s): T80.211A - BLOODSTREAM INFECTION DUE TO CENTRAL VENOUS CATHETER, INIT Status: Acute Priority: High Current Visit: Yes Qualifiers: Encounter type: initial encounter Qualified Code(s): T80.211A - Bloodstream infection due to central venous catheter, initial encounter (3) Fever and chills SNOMED Code(s): 684332272 Code(s): R50.9 - FEVER, UNSPECIFIED Status: Acute Priority: High Current Visit: Yes - Problem List Review Problem List Initiated/Reviewed/Updated: Yes - My Orders Last 24 Hours: Active Orders 24 hr Category Date Time Status Patient Status [ADT] Routine ADT 09/15/19 22:10 Active Antiembolic Devices [RC] PER UNIT ROUTINE Care 09/15/19 22:12 Active Notify Provider Consults [RC] ASDIRECTED Care 09/15/19 22:05 Active Oxygen Therapy [RC] PRN Care 09/15/19 22:10 Active Pulse Oximetry [RC] INTERMITTENT Care 09/15/19 22:10 Active Up ad Joyce [RC] PER UNIT ROUTINE Care 09/15/19 22:10 Active Vital Signs [RC] Q4H Care 09/15/19 22:10 Active Consult to Physician [CONS] Stat Cons 09/15/19 22:05 Active Nothing Per Oral Diet [DIET] Diet 09/15/19 Dinner Active CULTURE BLOOD [BC] Stat Lab 09/15/19 21:10 Received CULTURE BLOOD [BC] Stat Lab 09/15/19 21:42 Received Acetaminophen [Tylenol] Med 09/15/19 22:12 Active 325 mg PO Q4H PRN HYDROmorphone [Dilaudid] Med 09/16/19 07:02 Active 0.5 mg IVPUSH Q1H PRN Lactated Ringers [Ringers, Lactated] 1,000 ml Med 09/16/19 07:31 Ordered IV .BOLUS Lactated Ringers [Ringers, Lactated] 1,000 ml Med 09/15/19 22:15 Active IV ASDIRECTED Piperacillin/Tazobactam [Piperacil-Tazobact] 3.375 gm Med 09/16/19 12:00 Active Sodium Chloride 0.9% [Normal Saline] 50 ml IV Q6H Vancomycin 1.5 gm Med 09/16/19 07:45 Ordered Sodium Chloride 0.9% [Normal Saline] 500 ml IV Q12H Blood Culture x2 Reflex Set [OM.PC] Stat Oth 09/15/19 21:01 Ordered Sequential Compression Device [OM.PC] Routine Oth 09/15/19 22:10 Ordered Resuscitation Status Routine Resus Stat 09/15/19 22:09 Ordered Medication Orders Acetaminophen (Tylenol) 325 mg PO Q4H PRN PRN Reason: Fever Greater Than 101 Last Admin: 09/16/19 06:08 Dose: 325 mg Hydromorphone HCl (Dilaudid) 0.5 mg IVPUSH Q1H PRN PRN Reason: Pain Lactated Ringer's (Ringers, Lactated) 1,000 mls @ 125 mls/hr IV ASDIRECTED PAULO Last Admin: 09/16/19 07:01 Dose: 125 mls/hr Infusion: 09/16/19 06:41 Dose: 125 mls/hr Admin: 09/15/19 22:41 Dose: 125 mls/hr Piperacillin Sod/Tazobactam (Sod 3.375 gm/ Sodium Chloride) 50 mls @ 100 mls/ hr IV Q6H [facility] Lactated Ringer's (Ringers, Lactated) 1,000 mls @ 1,000 mls/hr IV .BOLUS ONE Stop: 09/16/19 08:30 Vancomycin HCl 1.5 gm/ Sodium (Chloride) 500 mls @ 333 mls/hr IV Q12H PAULO - Plan Plan (Free Text/Narrative):: This is a port infection until proven otherwise. Her WBC increased to 17 this morning. Broadened coverage with IV vancomycin. The patient states that the dressings that were placed post operatively caused blistering of her skin. I do not know if the infection was caused by that or another break in her skin around the incision site. Either way, the port needs to be removed and sent for cultures. She and I discussed the procedure and risk of infection or bleeding. She verbalized understanding and wishes to proceed.
[2019-09-16] MEDS: HYDROmorphone 1 MG/ML Syringe IVPUSH PRN ×3 (07:46→14:21)
[2019-09-16] MEDS ORDERED: fentaNYL 250 MCG/5 ML SDV ONE (08:08)
--- NOTE | 2019-09-16 08:59 | PCM.OPNOTE ---
- General Post-Op/Procedure Note Date of Surgery/Procedure: 09/16/19 Operative Procedure(s): Removal right internal jugular port a cath Findings: Purulent material surrounding the patient's RIJ port. Erythema and warmth around patients right mastectomy incision as well. Pre Op Diagnosis: Port a cath infection Post-Op Diagnosis: Port a cath infection, cellulitis Fluid Replacement, Intraop: 1,000 EBL in mLs: 2 Condition: Fair Free Text/Narrative:: Intake & Output 09/15/19 09/16/19 09/16/19 22:59 06:59 14:59 Intake Total 0 Output Total 700 Balance -700
--- NOTE | 2019-09-16 09:03 | PCM.POSTAN ---
POST ANESTHESIA ASSESSMENT - MENTAL STATUS Mental Status: Alert, Oriented - VITAL SIGNS Vital Signs: Last Vital Signs Temp 97.2 F 09/16/19 08:37 Pulse 95 09/16/19 08:47 Resp 14 09/16/19 08:47 BP 117/78 09/16/19 08:47 Pulse Ox 93 L 09/16/19 08:47 - RESPIRATORY Respiratory Status: Respiratory Rate WNL, Airway Patent, O2 Saturation Stable - CARDIOVASCULAR CV Status: Pulse Rate WNL, Blood Pressure Stable - GASTROINTESTINAL GI Status: No Symptoms - PAIN Pain Score: 0 - POST OP HYDRATION Hydration Status: Adequate & Stable
[2019-09-16] MEDS: Piperacillin/Tazobactam 3.375 GM in Sodium Chloride 0.9% 50 ML IV SCH ×3 (11:53→23:03)
--- NOTE | 2019-09-16 13:35 | PCM.SN.2 ---
- Free Text/Narrative Note: Performed a post op check on my patient. Vitals are stable. No fever. She states that her neck doesn't hurt as much. The dressing had some shadowing. I changed the dressings. The wound base was clean with no purulent material. There is still cellulitis along her chest wall and neck and her right mastectomy incision. It has not spread beyond the markings. I repacked the wound with 1/2" iodoform gauze and covered with dry 4 x 4's. Discussed the redness along her incision on the right breast with her plastic surgeon. Recommended imaging to rule out gross purulent material/fluid around the implant. Will continue on IV vanc and zosyn until cultures get back. Will get CT without contrast of chest to assess the right breast implant. No contrast for renal protection.
--- NOTE | 2019-09-16 14:12 | OR ---
SURGEON: AYLA ARROYO MD DATE OF PROCEDURE: 09/16/2019 PREOPERATIVE DIAGNOSIS: Right internal jugular port infection. POSTOPERATIVE DIAGNOSIS: Right internal jugular port infection. PROCEDURE PERFORMED: Port-A-Cath removal. PRIMARY SURGEON: Ayla Arroyo MD. ANESTHESIA: MAC, local. FLUIDS: 1000 mL of crystalloid. ESTIMATED BLOOD LOSS: 2 mL. FINDINGS: Grossly infected Port-A-Cath. Port and purulent fluid sent for cultures. Cellulitis along previous right mastectomy incision. COMPLICATIONS: None. INDICATIONS: The patient is a 43-year-old female who 1-week ago underwent an uncomplicated right internal jugular Port-A-Cath placement. The patient was doing well postoperatively when 2 days ago she developed fevers, chills, and redness over the Port-A- Cath site. She presented to the emergency room. She was seen by one of my partners, who admitted her overnight for IV fluids and IV antibiotics. I examined the patient this morning and noted a small amount of purulent material coming from the lateral aspect of her incision. She also had cellulitis surrounding the anterior chest wall Port-A-Cath site up to the insertion site on the neck. Her white blood cell count overnight went from 10,000 to 17,000. I explained to the patient that the treatment for an infected Port-A-Cath is to remove it. I explained the procedure, expected perioperative course, and risks. She verbalized understanding and wishes to proceed. PROCEDURE IN DETAIL: The patient was brought into the OR and placed on the OR table in supine position. A time-out was completed verifying the patient's name, age, date of , allergies, and procedure to be performed When the patient's gown was pulled down to allow for prepping, I noticed that the patient had redness along her right mastectomy incision. The patient explained that she had noticed the redness several days ago, but had not pointed that out earlier. When the patient had a Port-A-Cath placed previously, the incision appeared well healed with no evidence of infection. The area of cellulitis along the right mastectomy incision was marked out using a marking pen. The decision was made to still remove the port and then do further workup for a possible implant infection after the case. Monitored anesthesia care was induced. The right chest was prepped and draped in usual standard fashion. I anesthetized the area over the chest wall incision site with 1% lidocaine plain. Using a 15 blade, I opened up the patient 's previous incision. I immediately encountered purulent material. This was sent for aerobic and anaerobic culture. I then used cautery to dissect down to the level of the subcutaneous Port-A-Cath site. Upon entering the cavity, a large amount of purulent material was encountered. This was aspirated and sent for fluid culture. I identified my Prolene sutures on either side of the Port-A- Cath device. These were removed and the Port-A-Cath device was delivered from the wound. Gentle pressure was applied and I removed the catheter tubing along with the Port-A-Cath device. Pressure was held along the right lower neck at the insertion site. The port was then placed in a sterile cup and sent to pathology for catheter-tip cultures. After 2 minutes, pressure was released from the neck. There was no bleeding noted in the wound cavity. I irrigated this copiously with normal saline. I then explored the wound cavity. It did not appear to extend anywhere. There was no involvement in any of the deeper tissues. I did not feel or see any evidence of breast implant. The wound was then packed with moistened half-inch iodoform packing strip. Dry 4x4s were then placed over the wound and secured with paper tape. The patient tolerated the procedure well and was taken to PACU in stable condition. JOHN PAUL TURCIOS /[id number] CARMEN
[2019-09-16 14:32] LABS: BLOOD UREA NITROGEN,BUN 10 mg/dL (7.0-18.0); CARBON DIOXIDE,CO2 23.8 mmol/L (21.0-32.0); CHLORIDE,CL 102 mmol/L (98-107); GLUCOSE RANDOM 117 mg/dL (74-106); POTASSIUM,K 3.9 mmol/L (3.5-5.1); SODIUM,NA 135 mmol/L (136-145)
--- NOTE | 2019-09-16 15:12 | CT ---
CT chest Technique: Multiple axial sections through the chest were obtained. Intravenous contrast not utilized. Bilateral breast prosthesis are noted. Fluid is seen along the lateral edge of the right breast prosthesis measuring 3.7 cm. Uncertain if this represents a seroma from previous surgery or represents a well defined abscess. Skin thickening is seen within the right breast presumably due to cellulitis. Mild increased subcutaneous densities are seen within the right breast within the area of skin thickening which are felt compatible with additional cellulitis. There appears to be an ulceration or skin wound within the upper right breast or chest with surrounding increased subcutaneous density presumably due to cellulitis. Mediastinum and hilar regions appear within show no adenopathy. Aorta shows no aneurysm. No axillary adenopathy is seen. Visualized upper abdominal structures shows previous cholecystectomy as well as prior gastric surgery. Small hiatal hernia is noted. Lungs show no acute parenchymal change. Bone window settings shows no acute osseous finding. Impression: 1. 3.7 cm fluid-filled collection along the lateral side of a right breast prosthesis. Uncertain if this is due to a seroma from previous surgery or represents a well defined abscess. 2. Skin thickening within the right breast as well as increased areas of density within the subcutaneous fat within the right breast compatible with cellulitis. 3. Skin ulceration or skin wound within the upper right breast/chest wall with increased subcutaneous densities compatible with cellulitis. 4. Other findings which are believed to be incidental. Diagnostic code #3 This report was dictated in MDT
[2019-09-16] MEDS: Acetaminophen/oxyCODONE 325-5 MG Tab PO PRN ×2 (16:39→21:47)
[2019-09-17] MEDS: Lactated Ringers 1,000 ML IV SCH ×2 (03:40→12:12)
[2019-09-17] MEDS: Piperacillin/Tazobactam 3.375 GM in Sodium Chloride 0.9% 50 ML IV SCH (05:38)
[2019-09-17] MEDS: Acetaminophen/oxyCODONE 325-5 MG Tab PO PRN ×2 (07:33→23:48)
--- NOTE | 2019-09-17 07:36 | PCM48HPAN ---
Post Anesthesia Note - EVALUATION WITHIN 48HRS OF ANESTHETIC Vital Signs in Normal Range: Yes Patient Participated in Evaluation: Yes Respiratory Function Stable: Yes Airway Patent: Yes Cardiovascular Function Stable: Yes Hydration Status Stable: Yes Pain Control Satisfactory: Yes Nausea and Vomiting Control Satisfactory: Yes Mental Status Recovered: Yes Vital Signs: Last Vital Signs Temp 38.2 C H 09/17/19 04:00 Pulse 103 H 09/17/19 04:00 Resp 16 09/17/19 04:00 BP 133/77 09/17/19 04:00 Pulse Ox 98 09/17/19 04:00
--- NOTE | 2019-09-17 17:24 | PCM.SURGPN ---
- General Info Date of Service: 09/17/19 Date of Surgery/Procedure: 09/16/19 POD#: 1 - Review of Systems General: Reports: Fever, Fatigue, Malaise Pulmonary: Reports: No Symptoms Cardiovascular: Reports: No Symptoms Gastrointestinal: Reports: Decreased Appetite Genitourinary: Reports: No Symptoms Musculoskeletal: Reports: No Symptoms Skin: Reports: No Symptoms - Patient Data Vitals - Most Recent: Last Vital Signs Temp 37.0 C 09/17/19 12:08 Pulse 88 09/17/19 12:08 Resp 18 09/17/19 12:08 BP 133/84 09/17/19 12:08 Pulse Ox 97 09/17/19 12:08 Weight - Most Recent: 110.677 kg I&O - Last 24 Hours: Intake & Output 09/17/19 09/17/19 09/17/19 06:59 14:59 22:59 Intake Total 1825 300 Output Total 2400 Balance -575 300 Lab Results Last 24 Hrs: Laboratory Results - last 24 hr 09/17/19 Range/Units 04:50 WBC 9.90 (4.0-11.0) K/uL RBC 3.55 L (4.30-5.90) M/uL Hgb 10.1 L (12.0-16.0) g/dL Hct 32.4 L (36.0-46.0) % MCV 91.3 (80.0-98.0) fL MCH 28.5 (27.0-32.0) pg MCHC 31.2 (31.0-37.0) g/dL RDW Std Deviation 55.4 (28.0-62.0) fl RDW Coeff of Dionicio 17 H (11.0-15.0) % Plt Count 247 (150-400) K/uL MPV 9.30 (7.40-12.00) fL Neut % (Auto) 89.7 H (48.0-80.0) % Lymph % (Auto) 3.1 L (16.0-40.0) % Dubois % (Auto) 3.3 (0.0-15.0) % Eos % (Auto) 3.8 (0.0-7.0) % Baso % (Auto) 0.1 (0.0-1.5) % Neut # (Auto) 8.9 H (1.4-5.7) K/uL Lymph # (Auto) 0.3 L (0.6-2.4) K/uL Dubois # (Auto) 0.3 (0.0-0.8) K/uL Eos # (Auto) 0.4 (0.0-0.7) K/uL Baso # (Auto) 0.0 (0.0-0.1) K/uL Nucleated RBC % 0.0 /100WBC Nucleated RBCs # 0 K/uL Tl Results Last 24 Hrs: Microbiology 09/16/19 08:23 Catheter Tip Culture - Preliminary Catheter Tip Other - Port-A-Cath 09/15/19 21:42 Aerobic Blood Culture - Preliminary Blood - Venous - Lab Draw NO GROWTH AFTER 1 DAY Anaerobic Blood Culture - Preliminary NO GROWTH AFTER 1 DAY 09/15/19 21:10 Aerobic Blood Culture - Preliminary Blood - Venous NO GROWTH AFTER 1 DAY Anaerobic Blood Culture - Preliminary NO GROWTH AFTER 1 DAY Med Orders - Current: Current Medications Hydromorphone HCl (Dilaudid) 0.5 mg IVPUSH Q1H PRN PRN Reason: Pain Last Admin: 09/16/19 14:21 Dose: 0.5 mg Lactated Ringer's (Ringers, Lactated) 1,000 mls @ 125 mls/hr IV ASDIRECTED [facility] Last Admin: 09/17/19 12:12 Dose: 125 mls/hr Vancomycin HCl 1.5 gm/ Premix 300 mls @ 199.815 mls/hr IV Q12H [facility] Last Admin: 09/17/19 09:42 Dose: 199.815 mls/hr Oxycodone/Acetaminophen (Percocet 325-5 Mg) 2 tab PO Q4H PRN PRN Reason: Pain (severe 7-10) Last Admin: 09/17/19 07:33 Dose: 2 tab Discontinued Medications Acetaminophen (Tylenol) 325 mg PO Q4H PRN PRN Reason: Fever Greater Than 101 Last Admin: 09/16/19 06:08 Dose: 325 mg Bupivacaine HCl (Sensorcaine-Mpf 0.5%) Confirm Administered Dose 10 ml .ROUTE .STK-MED ONE Stop: 09/16/19 07:42 Fentanyl (Sublimaze) Confirm Administered Dose 100 mcg .ROUTE .STK-MED ONE Stop: 09/16/19 07:34 Fentanyl (Sublimaze) Confirm Administered Dose 250 mcg .ROUTE .STK-MED ONE Stop: 09/16/19 08:09 Sodium Chloride (Normal Saline) 1,000 mls @ 999 mls/hr IV .BOLUS ONE Stop: 09/15/19 22:01 Last Admin: 09/15/19 21:17 Dose: 999 mls/hr Piperacillin Sod/Tazobactam (Sod 4.5 gm/ Sodium Chloride) 100 mls @ 100 mls/hr IV Q8H [facility] Last Admin: 09/15/19 22:30 Dose: Not Given Piperacillin Sod/Tazobactam (Sod 3.375 gm/ Sodium Chloride) 50 mls @ 100 mls/ hr IV Q8H [facility] Last Admin: 09/16/19 06:10 Dose: 100 mls/hr Piperacillin Sod/Tazobactam (Sod 4.5 gm/ Sodium Chloride) 100 mls @ 100 mls/hr IV NOW STA Stop: 09/15/19 23:28 Last Admin: 09/15/19 22:42 Dose: 100 mls/hr Sodium Chloride (Normal Saline) Confirm Administered Dose 100 mls @ as directed .ROUTE .STK-MED ONE Stop: 09/15/19 22:48 Last Admin: 09/15/19 23:13 Dose: Not Given Piperacillin Sod/Tazobactam (Sod 3.375 gm/ Sodium Chloride) 50 mls @ 100 mls/ hr IV Q6H [facility] Last Admin: 09/17/19 05:38 Dose: 100 mls/hr Lactated Ringer's (Ringers, Lactated) 1,000 mls @ 1,000 mls/hr IV .BOLUS ONE Stop: 09/16/19 08:30 Last Admin: 09/16/19 07:43 Dose: 1,000 mls/hr Lidocaine HCl (Xylocaine 1%) Confirm Administered Dose 20 ml .ROUTE .STK-MED ONE Stop: 09/16/19 07:42 Midazolam HCl (Versed 1 Mg/Ml) Confirm Administered Dose 4 mg .ROUTE .STK-MED ONE Stop: 09/16/19 07:34 Piperacillin Sod/Tazobactam Sod (Piperacil-Tazobact) Confirm Administered Dose 4.5 gm .ROUTE .STK-MED ONE Stop: 09/15/19 22:47 Last Admin: 09/15/19 23:13 Dose: Not Given Propofol (Diprivan 20 Ml) Confirm Administered Dose 200 mg .ROUTE .STK-MED ONE Stop: 09/16/19 07:38 - Exam Wound/Incisions: Other (Dressing changes at bedside. Wound appears clean with granulation tissue starting at the base. Patient surrounding cellulitis is improving.) Neck: Supple Lungs: Normal Respiratory Effort Cardiovascular: Regular Rate Sepsis Event Note - Evaluation Sepsis Screening Result: No Definite Risk - Focused Exam Vital Signs: Vital Signs Temp Pulse Resp BP Pulse Ox 09/17/19 12:08 37.0 C 88 18 133/84 97 09/17/19 07:30 36.6 C 87 18 128/64 98 Date Exam was Performed: 09/17/19 Time Exam was Performed: 17:21 - Problem List & Annotations (1) Cellulitis SNOMED Code(s): 792020332 Code(s): L03.90 - CELLULITIS, UNSPECIFIED Status: Acute Current Visit: Yes (2) Catheter-related bloodstream infection SNOMED Code(s): 498906646 Code(s): T80.211A - BLOODSTREAM INFECTION DUE TO CENTRAL VENOUS CATHETER, INIT Status: Acute Priority: High Current Visit: Yes Qualifiers: Encounter type: initial encounter Qualified Code(s): T80.211A - Bloodstream infection due to central venous catheter, initial encounter (3) Fever and chills SNOMED Code(s): 617817985 Code(s): R50.9 - FEVER, UNSPECIFIED Status: Acute Priority: High Current Visit: Yes - Problem List Review Problem List Initiated/Reviewed/Updated: Yes - My Orders Last 24 Hours: Active Orders 24 hr Category Date Time Status CBC WITH AUTO DIFF [HEME] AM Lab 09/18/19 05:11 Ordered VANCOMYCIN TROUGH [CHEM] Timed Lab 09/18/19 07:30 Ordered Medication Orders Hydromorphone HCl (Dilaudid) 0.5 mg IVPUSH Q1H PRN PRN Reason: Pain Last Admin: 09/16/19 14:21 Dose: 0.5 mg Admin: 09/16/19 11:10 Dose: 0.5 mg Admin: 09/16/19 07:46 Dose: 0.5 mg Lactated Ringer's (Ringers, Lactated) 1,000 mls @ 125 mls/hr IV ASDIRECTED [facility] Last Admin: 09/17/19 12:12 Dose: 125 mls/hr Infusion: 09/17/19 11:40 Dose: 125 mls/hr Admin: 09/17/19 03:40 Dose: 125 mls/hr Infusion: 09/17/19 00:42 Dose: 125 mls/hr Admin: 09/16/19 16:42 Dose: 125 mls/hr Infusion: 09/16/19 15:01 Dose: 125 mls/hr Admin: 09/16/19 07:01 Dose: 125 mls/hr Infusion: 09/16/19 06:41 Dose: 125 mls/hr Admin: 09/15/19 22:41 Dose: 125 mls/hr Vancomycin HCl 1.5 gm/ Premix 300 mls @ 199.815 mls/hr IV Q12H [facility] Last Admin: 09/17/19 09:42 Dose: 199.815 mls/hr Infusion: 09/16/19 21:39 Dose: 199.815 mls/hr Admin: 09/16/19 20:08 Dose: 199.815 mls/hr Infusion: 09/16/19 10:58 Dose: 199.815 mls/hr Admin: 09/16/19 09:27 Dose: 199.815 mls/hr Oxycodone/Acetaminophen (Percocet 325-5 Mg) 2 tab PO Q4H PRN PRN Reason: Pain (severe 7-10) Last Admin: 09/17/19 07:33 Dose: 2 tab Admin: 09/16/19 21:47 Dose: 2 tab Admin: 09/16/19 16:39 Dose: 2 tab - Plan Plan (Free Text/Narrative):: The patient's chest CT yesterday showed some fluid around her implant on the right side. I sent the reading radiologist read to her plastic surgeon. She agrees with IV antibiotic treatment transition to oral antibiotic treatment for 10 days. She will follow-up with her as an outpatient afterwards. The patient was febrile last night. Her white blood cell count is within normal limits this morning and her vital signs remained stable throughout the day. Her primary culture results reveal that this is likely a staph or strep. I will switch her to IV vancomycin alone for now. Will repeat CBC in the morning.
[2019-09-18] MEDS ORDERED: Pantoprazole 40 MG Tab.CR PO SCH (07:30)
[2019-09-18] MEDS ORDERED: Venlafaxine 75 MG Cap.ER PO SCH (09:00)
[2019-09-18] MEDS ORDERED: Metoprolol Succinate 50 MG Tab.ER PO SCH (09:00)
[2019-09-18] MEDS ORDERED: Clindamycin HCl 150 MG Cap PO SCH (13:30)
--- NOTE | 2019-09-18 16:24 | PCM.DCSUM1 ---
Discharge Summary - Hospital Course Free Text/Narrative:: Patient is a 43-year-old female who presented with a port infection. The port and placed one week before. She noticed some redness along her mastectomy incision several days before and then 24 hours before presentation noted redness warmth and tenderness over the Port-A-Cath site. She was admitted to the hospital and taken the next day for a removal of this port. The port was found to be floating and purulent material. This is sent for culture and found to be beta-hemolytic strep. She was started on vancomycin and Zosyn upon admission which was narrowed to vancomycin. Once her white count was normal and the wounds started to look significantly better she was switched over to clindamycin. She tolerated this with no issues and was able to be discharged home. Last day of her admission her vital signs are stable and she was afebrile. CT scan was performed while she was in-house which showed some fluid around her right breast implant. We'll have her follow-up with her plastic surgeon in 1-2 weeks after this admission. She was informed of the patients findings and agrees with treatment. - Discharge Data Discharge Date: 09/18/19 Discharge Disposition: Home, Self-Care 01 Condition: Fair - Referral to Home Health Primary Care Physician: PCP None - Discharge Diagnosis/Problem(s) (1) Cellulitis SNOMED Code(s): 822358479 ICD Code: L03.90 - CELLULITIS, UNSPECIFIED Status: Acute Current Visit: Yes (2) Catheter-related bloodstream infection SNOMED Code(s): 191078334 ICD Code: T80.211A - BLOODSTREAM INFECTION DUE TO CENTRAL VENOUS CATHETER, INIT Status: Acute Priority: High Current Visit: Yes Qualifiers: Encounter type: initial encounter Qualified Code(s): T80.211A - Bloodstream infection due to central venous catheter, initial encounter (3) Fever and chills SNOMED Code(s): 251479512 ICD Code: R50.9 - FEVER, UNSPECIFIED Status: Acute Priority: High Current Visit: Yes - Patient Summary/Data Operative Procedure(s) Performed: Removal right internal jugular port a cath Consults: Consultations 09/15/19 22:05 Consult to Physician [CONS] Stat - Patient Instructions Diet: Regular Diet as Tolerated Activity: Rest and Relax Today Driving: Do Not Drive (while on narcotics ) Showering/Bathing: May Shower Notify Provider of: Fever, Increased Pain, Swelling and Redness, Drainage - Discharge Plan *PRESCRIPTION DRUG MONITORING PROGRAM REVIEWED*: Yes *COPY OF PRESCRIPTION DRUG MONITORING REPORT IN PATIENT RAINE: Yes Home Medications: Home Meds Metoprolol Succinate [Toprol XL 50mg] 50 mg PO QAM 02/11/16 [History] Venlafaxine HCl [Venlafaxine HCl ER] 150 mg PO DAILY 02/11/16 [History] Pantoprazole Sodium 40 mg PO DAILY 05/15/17 [History] Referrals: Rufina Leone NP [Ordering Only Provider] - Ayla Arroyo MD [Physician] - 09/22/19 1:15 pm - Discharge Summary/Plan Comment DC Time >30 min.: No - General Info Functional Status: Reports: Pain Controlled, Tolerating Diet, Ambulating, Urinating. Denies: New Symptoms - Review of Systems General: Reports: No Symptoms HEENT: Reports: No Symptoms Pulmonary: Reports: No Symptoms Cardiovascular: Reports: No Symptoms Gastrointestinal: Reports: No Symptoms Genitourinary: Reports: No Symptoms Musculoskeletal: Reports: No Symptoms - Patient Data Vitals - Most Recent: Last Vital Signs Temp 36.3 C 09/18/19 12:00 Pulse 80 09/18/19 12:00 Resp 16 09/18/19 12:00 BP 148/98 H 09/18/19 12:00 Pulse Ox 99 09/18/19 12:00 Weight - Most Recent: 110.677 kg I&O - Last 24 hours: Intake & Output 09/18/19 09/18/19 09/18/19 06:59 14:59 22:59 Intake Total 1050 300 Output Total 1500 Balance -450 300 Lab Results - Last 24 hrs: Laboratory Results - last 24 hr 09/18/19 09/18/19 Range/Units 07:50 07:50 WBC 7.71 (4.0-11.0) K/uL RBC 3.36 L (4.30-5.90) M/uL Hgb 9.5 L (12.0-16.0) g/dL Hct 30.6 L (36.0-46.0) % MCV 91.1 (80.0-98.0) fL MCH 28.3 (27.0-32.0) pg MCHC 31.0 (31.0-37.0) g/dL RDW Std Deviation 55.6 (28.0-62.0) fl RDW Coeff of Dionicio 17 H (11.0-15.0) % Plt Count 258 (150-400) K/uL MPV 9.00 (7.40-12.00) fL Neut % (Auto) 79.7 (48.0-80.0) % Lymph % (Auto) 8.7 L (16.0-40.0) % Stephenson % (Auto) 5.3 (0.0-15.0) % Eos % (Auto) 6.2 (0.0-7.0) % Baso % (Auto) 0.1 (0.0-1.5) % Neut # (Auto) 6.1 H (1.4-5.7) K/uL Lymph # (Auto) 0.7 (0.6-2.4) K/uL Stephenson # (Auto) 0.4 (0.0-0.8) K/uL Eos # (Auto) 0.5 (0.0-0.7) K/uL Baso # (Auto) 0.0 (0.0-0.1) K/uL Nucleated RBC % 0.0 /100WBC Nucleated RBCs # 0 K/uL Vancomycin Trough 11.6 H (5.0-10.0) ug/mL [facility] Results - Last 24 hrs: Microbiology 09/16/19 08:23 Catheter Tip Culture - Preliminary Catheter Tip Other - Port-A-Cath 09/16/19 08:23 Wound Culture - Preliminary Other - Incision 09/15/19 21:42 Aerobic Blood Culture - Preliminary Blood - Venous - Lab Draw NO GROWTH AFTER 2 DAYS Anaerobic Blood Culture - Preliminary NO GROWTH AFTER 2 DAYS 09/15/19 21:10 Aerobic Blood Culture - Preliminary Blood - Venous NO GROWTH AFTER 2 DAYS Anaerobic Blood Culture - Preliminary NO GROWTH AFTER 2 DAYS Med Orders - Current: Current Medications Clindamycin HCl (Cleocin) 450 mg PO Q6H [facility] Last Admin: 09/18/19 14:00 Dose: 450 mg Hydromorphone HCl (Dilaudid) 0.5 mg IVPUSH Q1H PRN PRN Reason: Pain Last Admin: 09/16/19 14:21 Dose: 0.5 mg Metoprolol Succinate (Toprol Xl) 50 mg PO DAILY [facility] Last Admin: 09/18/19 08:52 Dose: 50 mg Oxycodone/Acetaminophen (Percocet 325-5 Mg) 2 tab PO Q4H PRN PRN Reason: Pain (severe 7-10) Last Admin: 09/17/19 23:48 Dose: 2 tab Pantoprazole Sodium (Protonix) 40 mg PO ACBREAKFAST [facility] Last Admin: 09/18/19 07:59 Dose: 40 mg Venlafaxine HCl (Effexor Xr) 150 mg PO DAILY [facility] Last Admin: 09/18/19 08:52 Dose: 150 mg Discontinued Medications Acetaminophen (Tylenol) 325 mg PO Q4H PRN PRN Reason: Fever Greater Than 101 Last Admin: 09/16/19 06:08 Dose: 325 mg Bupivacaine HCl (Sensorcaine-Mpf 0.5%) Confirm Administered Dose 10 ml .ROUTE .STK-MED ONE Stop: 09/16/19 07:42 Fentanyl (Sublimaze) Confirm Administered Dose 100 mcg .ROUTE .STK-MED ONE Stop: 09/16/19 07:34 Fentanyl (Sublimaze) Confirm Administered Dose 250 mcg .ROUTE .STK-MED ONE Stop: 09/16/19 08:09 Sodium Chloride (Normal Saline) 1,000 mls @ 999 mls/hr IV .BOLUS ONE Stop: 09/15/19 22:01 Last Admin: 09/15/19 21:17 Dose: 999 mls/hr Piperacillin Sod/Tazobactam (Sod 4.5 gm/ Sodium Chloride) 100 mls @ 100 mls/hr IV Q8H [facility] Last Admin: 09/15/19 22:30 Dose: Not Given Lactated Ringer's (Ringers, Lactated) 1,000 mls @ 125 mls/hr IV ASDIRECTED [facility] Last Admin: 09/17/19 12:12 Dose: 125 mls/hr Piperacillin Sod/Tazobactam (Sod 3.375 gm/ Sodium Chloride) 50 mls @ 100 mls/ hr IV Q8H [facility] Last Admin: 09/16/19 06:10 Dose: 100 mls/hr Piperacillin Sod/Tazobactam (Sod 4.5 gm/ Sodium Chloride) 100 mls @ 100 mls/hr IV NOW STA Stop: 09/15/19 23:28 Last Admin: 09/15/19 22:42 Dose: 100 mls/hr Sodium Chloride (Normal Saline) Confirm Administered Dose 100 mls @ as directed .ROUTE .STK-MED ONE Stop: 09/15/19 22:48 Last Admin: 09/15/19 23:13 Dose: Not Given Piperacillin Sod/Tazobactam (Sod 3.375 gm/ Sodium Chloride) 50 mls @ 100 mls/ hr IV Q6H [facility] Last Admin: 09/17/19 05:38 Dose: 100 mls/hr Lactated Ringer's (Ringers, Lactated) 1,000 mls @ 1,000 mls/hr IV .BOLUS ONE Stop: 09/16/19 08:30 Last Admin: 09/16/19 07:43 Dose: 1,000 mls/hr Vancomycin HCl 1.5 gm/ Premix 300 mls @ 199.815 mls/hr IV Q12H [facility] Last Admin: 09/18/19 08:53 Dose: 199.815 mls/hr Lidocaine HCl (Xylocaine 1%) Confirm Administered Dose 20 ml .ROUTE .STK-MED ONE Stop: 09/16/19 07:42 Midazolam HCl (Versed 1 Mg/Ml) Confirm Administered Dose 4 mg .ROUTE .STK-MED ONE Stop: 09/16/19 07:34 Piperacillin Sod/Tazobactam Sod (Piperacil-Tazobact) Confirm Administered Dose 4.5 gm .ROUTE .STK-MED ONE Stop: 09/15/19 22:47 Last Admin: 09/15/19 23:13 Dose: Not Given Propofol (Diprivan 20 Ml) Confirm Administered Dose 200 mg .ROUTE .STK-MED ONE Stop: 09/16/19 07:38 - Exam General: Reports: Alert, Oriented HEENT: Reports: Pupils Equal, Pupils Reactive Neck: Reports: Supple, Other (erythema along right neck resolved ) Lungs: Reports: Normal Respiratory Effort Cardiovascular: Reports: Regular Rate GI/Abdominal Exam: Soft, Non-Tender Skin: Reports: Other (Wound with granulation tissue. Erythema warm swelling and tenderness greatly improved. )
[2019-09-18 16:40] VITALS: BP 130/80; PULSE 86
== END 2019-09-18 17:30 | disposition home or self-care (01) ==
LOC: MW.ED 20:13 → MW.MS 22:10 → UNDOADMOB 22:10 → MW.MS 09-16 03:44
PROVIDERS: ADMIT Surgery; ATTEND Surgery
DX: T80.211A Bloodstream infection due to central venous catheter, initial encounter (principal); N61.0 Mastitis without abscess; B95.0 Streptococcus, group A, as the cause of diseases classified elsewhere; B95.7 Other staphylococcus as the cause of diseases classified elsewhere; I10 Essential (primary) hypertension; K21.9 Gastro-esophageal reflux disease without esophagitis; F41.9 Anxiety disorder, unspecified; F32.9 Major depressive disorder, single episode, unspecified; E66.9 Obesity, unspecified; Z90.11 Acquired absence of right breast and nipple; Z68.36 Body mass index [BMI] 36.0-36.9, adult
CPT/HCPCS: 36415; 36590; 71250; 80048; 80053; 80202; 83605; 85007; 85025; 85027; 87040; 87070; 87075; 87077; 87186; 96361; 96365; 96366; 96367; 96376; 99284; A9270; G0378; J1170; J2001; J2250; J2543; J2704; J3010; J3370; J7030; J7050; J7120; 00400; 99283; J3490

== ENCOUNTER 2019-10-14 06:31 | Day surgery (SDC) | payer BC ==
[~2019-10-14 06:31] MED LIST changes: -ceFAZolin 2 GM in Premix Bag 1 BAG IV ONE
[2019-10-14] MEDS ORDERED: Ondansetron 4 MG/2 ML SDV ONE (07:08)
[2019-10-14] MEDS ORDERED: Dexamethasone 4 MG/ML 5 ML MDV ONE (07:08)
[2019-10-14] MEDS ORDERED: fentaNYL 100 MCG/2 ML SDV ONE (07:09)
[2019-10-14] MEDS ORDERED: Lidocaine 2% 5 ML SDV ONE (07:09)
[2019-10-14] MEDS ORDERED: Midazolam 1 MG/ML 2 ML SDV ONE (07:09)
[2019-10-14] MEDS ORDERED: Propofol 200 MG/20 ML SDV ONE ×2 (07:09)
--- NOTE | 2019-10-14 07:22 | PCM.PREANE ---
Preanesthetic Assessment - Anesthesia/Transfusion/Family Hx Anesthesia History: Prior Anesthesia Without Reaction Family History of Anesthesia Reaction: No Transfusion History: No Prior Transfusion(s) Intubation History: Unknown - Review of Systems General: No Symptoms, Night Sweats Cardiovascular: No Symptoms Gastrointestinal: No Symptoms Neurological: No Symptoms Other: Reports: None - Physical Assessment NPO Status Date: 10/13/19 NPO Status Time: 22:00 Vital Signs: Last Vital Signs Temp 97.0 F 10/14/19 06:48 Pulse 116 H 10/14/19 06:48 Resp 18 10/14/19 06:48 BP 151/106 H 10/14/19 06:48 Pulse Ox 98 10/14/19 06:48 Height: 5 ft 5 in Weight: 99.79 kg ASA Class: 2 Mental Status: Alert & Oriented x3 Dentition: Reports: Caries ROM/Head Extension: Full Lungs: Clear to Auscultation, Normal Respiratory Effort Cardiovascular: Regular Rate, Regular Rhythm - Allergies Allergies/Adverse Reactions: Allergies Allergy/AdvReac Type Severity Reaction Status Date / Time adhesive tape Allergy Blisters Verified 10/10/19 11:56 - Blood Blood Available: No - Anesthesia Plan Pre-Op Medication Ordered: None - Acknowledgements Anesthesia Type Planned: General Anesthesia, MAC Pt an Appropriate Candidate for the Planned Anesthesia: Yes Alternatives and Risks of Anesthesia Discussed w Pt/Guardian: Yes Pt/Guardian Understands and Agrees with Anesthesia Plan: Yes Additional Comments: PMH: breast ca, htn, smoker PLAN: L sided port into IJV, anesthesia-- MAC or GA/LMA PreAnesthesia Questionnaire HEENT History: Reports: Other (See Below) Other HEENT History: wears glasses Cardiovascular History: Reports: Hypertension Respiratory History: Reports: None Gastrointestinal History: Reports: GERD, Hiatal Hernia Genitourinary History: Reports: None 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: Musculoskeletal History: Reports: None Neurological History: Reports: None Psychiatric History: Reports: Depression Endocrine/Metabolic History: Reports: Obesity/BMI 30+ Hematologic History: Reports: B12 Deficiency Immunologic History: Reports: Immunosuppression Oncologic (Cancer) History: Reports: Breast Dermatologic History: Reports: None - Past Surgical History Head Surgeries/Procedures: Reports: None HEENT Surgical History: Reports: None Cardiovascular Surgical History: Reports: Other (See Below) Other Cardiovascular Surgeries/Procedures: previous Port a Cath placement Respiratory Surgical History: Reports: None GI Surgical History: Reports: Bariatric Procedure, Cholecystectomy Other GI Surgeries/Procedures: Abdominoplasty Female Surgical History: Reports: Breast Biopsy, Mastectomy Other Female Surgeries/Procedures: hx of bilateral mastectomy Neurological Surgical History: Reports: None Musculoskeletal Surgical History: Reports: Arthroscopic Knee Other Musculoskeletal Surgeries/Procedures:: left ACL repair Oncologic Surgical History: Reports: None Dermatological Surgical History: Reports: Plastic Surgical Reconstruction/Repair - SUBSTANCE USE Smoking Status *Q: Former Smoker Tobacco Use Within Last Twelve Months: Cigarettes Recreational Drug Use History: No - HOME MEDS Home Medications: Home Meds Metoprolol Succinate [Toprol XL 50mg] 50 mg PO QAM 02/11/16 [History] Venlafaxine HCl [Venlafaxine HCl ER] 150 mg PO DAILY 02/11/16 [History] Pantoprazole Sodium 40 mg PO DAILY 05/15/17 [History] - CURRENT (IN HOUSE) MEDS Current Meds: Current Medications Lactated Ringer's (Ringers, Lactated) 1,000 mls @ 125 mls/hr IV ASDIRECTED [facility] Last Admin: 10/14/19 07:01 Dose: 125 mls/hr Vancomycin HCl 1 gm/ Sodium (Chloride) 250 mls @ 250 mls/hr IV ONETIME ONE Stop: 10/14/19 08:29 Sodium Chloride (Saline Flush) 10 ml FLUSH ASDIRECTED PRN PRN Reason: Keep Vein Open Sodium Chloride (Saline Flush) 2.5 ml FLUSH ASDIRECTED PRN PRN Reason: Keep Vein Open Sodium Chloride (Normal Saline) 10 ml IV ASDIRECTED PRN PRN Reason: IV Use Discontinued Medications Dexamethasone (Dexamethasone) Confirm Administered Dose 20 mg .ROUTE .STK-MED ONE Stop: 10/14/19 07:09 Fentanyl (Sublimaze) Confirm Administered Dose 100 mcg .ROUTE .STK-MED ONE Stop: 10/14/19 07:10 Lidocaine (Xylocaine-Mpf 2%) Confirm Administered Dose 5 ml .ROUTE .STK-MED ONE Stop: 10/14/19 07:10 Midazolam HCl (Versed 1 Mg/Ml) Confirm Administered Dose 2 mg .ROUTE .STK-MED ONE Stop: 10/14/19 07:10 Ondansetron HCl (Zofran) Confirm Administered Dose 4 mg .ROUTE .STK-MED ONE Stop: 10/14/19 07:09 Propofol (Diprivan 20 Ml) Confirm Administered Dose 200 mg .ROUTE .STK-MED ONE Stop: 10/14/19 07:10 Propofol (Diprivan 20 Ml) Confirm Administered Dose 200 mg .ROUTE .STK-MED ONE Stop: 10/14/19 07:10 Vancomycin HCl (Vancomycin) 1 gm IV ONETIME ONE Stop: 10/14/19 07:31
[2019-10-14] MEDS ORDERED: Vancomycin 1 GM SDV IV ONE (07:30)
[2019-10-14] MEDS ORDERED: Bupivacaine 0.5% 30 ML SDV ONE (07:32)
[2019-10-14] MEDS ORDERED: Lidocaine 1% 20 ML MDV ONE (07:33)
[2019-10-14] MEDS ORDERED: Heparin Sodium 100 Units/ML 3 ML Syringe ONE (07:33)
[2019-10-14] MEDS ORDERED: Iopamidol 200-M 10 ML vial ITHECAL ONE (07:33)
[2019-10-14] MEDS ORDERED: ePHEDrine 50 MG/ML SDV ONE (08:19)
[2019-10-14] MEDS ORDERED: Sodium Chloride 0.9% 20 ML ONE (08:19)
[2019-10-14] MEDS ORDERED: Octyl 2-Cyanoacrylate 1 Tube ONE (08:53)
[2019-10-14] MEDS ORDERED: 50% Dextrose in Water 50 ML Syringe IVPUSH PRN (08:59)
[2019-10-14] MEDS ORDERED: Naloxone 0.4 MG/ML Syringe IVPUSH PRN (08:59)
[2019-10-14] MEDS ORDERED: EPINEPHrine 1:10,000 1 MG/10 ML Syringe IVPUSH PRN (08:59)
[2019-10-14] MEDS ORDERED: Albuterol 0.083% 2.5 MG/3 ML Neb Soln NEB PRN (08:59)
[2019-10-14] MEDS ORDERED: Atropine 0.1 MG/ML 10 ML Syringe IVPUSH PRN ×2 (08:59)
[2019-10-14] MEDS ORDERED: fentaNYL 100 MCG/2 ML SDV IVPUSH PRN (08:59)
--- NOTE | 2019-10-14 09:22 | PCM.OPNOTE ---
- General Post-Op/Procedure Note Date of Surgery/Procedure: 10/14/19 Operative Procedure(s): Left internal jugular port a cath placement Findings: Left IJ port Pre Op Diagnosis: Breast cancer Post-Op Diagnosis: same Anesthesia Technique: General LMA Primary Surgeon: Ayla Arroyo Fluid Replacement, Intraop: 500 EBL in mLs: 10 Condition: Good
--- NOTE | 2019-10-14 09:47 | PCM.POSTAN ---
POST ANESTHESIA ASSESSMENT - MENTAL STATUS Mental Status: Alert, Oriented - VITAL SIGNS Vital Signs: Last Vital Signs Temp 36.1 C 10/14/19 09:20 Pulse 111 H 10/14/19 09:40 Resp 15 10/14/19 09:40 BP 145/95 H 10/14/19 09:40 Pulse Ox 98 10/14/19 09:40 - RESPIRATORY Respiratory Status: Respiratory Rate WNL, Airway Patent, O2 Saturation Stable - CARDIOVASCULAR CV Status: Pulse Rate WNL, Blood Pressure Stable - GASTROINTESTINAL GI Status: No Symptoms - POST OP HYDRATION Hydration Status: Adequate & Stable
[2019-10-14 09:57] VITALS: PULSE 107
--- NOTE | 2019-10-14 09:58 | CR ---
Chest: Portable view of the chest was obtained. Comparison: Prior chest x-ray of 09/09/19. Right and left lungs are clear. Left-sided infusion port is seen with tip terminating within the superior vena cava. Heart size and mediastinum are normal. Bony structures are unremarkable. No pneumothorax is seen. Surgical clips are seen within the left axillary region. Impression: 1. Satisfactory position of left-sided infusion port. 2. Nothing acute is seen on portable chest x-ray. Diagnostic code #2 This report was dictated in MDT
[2019-10-14 10:13] VITALS: BP 138/77
--- NOTE | 2019-10-14 13:36 | PCM48HPAN ---
Post Anesthesia Note - EVALUATION WITHIN 48HRS OF ANESTHETIC Vital Signs in Normal Range: Yes Patient Participated in Evaluation: Yes Respiratory Function Stable: Yes Airway Patent: Yes Cardiovascular Function Stable: Yes Hydration Status Stable: Yes Pain Control Satisfactory: Yes Nausea and Vomiting Control Satisfactory: Yes Mental Status Recovered: Yes Vital Signs: Last Vital Signs Temp 97.7 F 10/14/19 09:47 Pulse 107 H 10/14/19 10:08 Resp 14 10/14/19 10:08 BP 138/77 10/14/19 10:08 Pulse Ox 95 10/14/19 10:08
--- NOTE | 2019-10-14 14:47 | CR ---
Chest: 2 fluoroscopic spot views of the chest were obtained. Study was performed utilizing C-arm device. Study shows placement of a Port-A-Cath. Fluoroscopy time is 56.4 seconds. Impression: 1. Procedural study. Diagnostic code #2 This report was dictated in MDT
--- NOTE | 2019-10-14 17:03 | OR ---
SURGEON: AYLA ARROYO MD DATE OF PROCEDURE: 10/14/2019 PREOPERATIVE DIAGNOSIS: Recurrent breast cancer. POSTOPERATIVE DIAGNOSIS: Recurrent breast cancer. PROCEDURE PERFORMED: Left internal jugular Port-A-Cath placement. PRIMARY SURGEON: Ayla Arroyo MD. ANESTHESIA: General LMA. FLUIDS: 500 mL crystalloid. ESTIMATED BLOOD LOSS: 10 mL. FINDINGS: Left internal jugular Port-A-Cath placement. COMPLICATIONS: None. INDICATIONS: The patient is a 43-year-old female who has recurrent breast cancer and is in need of chemotherapy. She previously had a right internal jugular Port-A-Cath placed, but this unfortunately became infected and had been removed. She has been evaluated by her plastic surgeon who believes her implants are healthy with no signs of infection at this time. Her wounds have healed. The decision was made to proceed with a left-sided placement of Port-A-Cath. I explained the procedure, expected perioperative course, and the risks including bleeding, infection, or damage to surrounding structures. The patient verbalized understanding and wishes to proceed. PROCEDURE IN DETAIL: The patient was brought into the OR and placed on the OR table in a supine position. A time-out was completed verifying the patient's name, age, date of , allergies, and procedure to be performed. General LMA anesthesia was induced. Bilateral arms were tucked to the patient's side, and a shoulder roll placed under the patient's shoulders. I used an ultrasound to verify the vascular anatomy of the left side of the neck. A photograph of this was taken and placed in the chart. The neck and chest were then prepped and draped in the usual standard fashion. The patient's previous right internal jugular Port-A- Cath wound site was covered with a Tegaderm after prepping and draped outside of the field. The patient was placed into reverse Trendelenburg position. Using a sterile ultrasound probe, I re-identified the vascular anatomy on the left side of the neck. I anesthetized the area overlying the left internal jugular vein with 0.5% Marcaine plain. I then anesthetized the left anterior chest wall site as well. Using the ultrasound, I placed a guide needle into the left internal jugular vein under direct visualization. Immediate return of venous blood was noted. A guidewire was placed down the left internal jugular vein. No resistance was met. The ultrasound was used to verify placement of the guidewire in the vein. Fluoroscopy was brought in to verify placement of the guidewire into the SVC. The guidewire was then secured to the drapes, and I turned my attention to the chest wall. A 3 cm incision was made using a 15 blade, 2 fingerbreadths below the lateral left clavicle. Cautery was used to dissect into the layer of the subcutaneous fat. A subcutaneous chest wall pocket was then created. A tunneling device was then used to tunnel the catheter tubing from my chest wall site up to the insertion site on my neck. A vascular sheath and dilator were then placed over the guidewire. Under fluoroscopic guidance, I dilated up my vascular tract. The dilator and guidewire were removed. The catheter tubing was then placed down the vascular sheath into the superior vena cava. The vascular sheath was peeled away and removed from the field. I then used fluoroscopic guidance to guide the tip of the catheter tubing into the SVC. I then accessed the catheter tubing and a good return of venous blood was noted. The tubing was then flushed with injectable saline. The catheter tubing was then trimmed and placed onto the Port-A-Cath device. The port was then placed in the subcutaneous chest wall pocket. It was accessed and had a good return of venous blood. It was then locked with 3 mL of heparinized saline. The chest wall pocket was then closed with running 3-0 Vicryl suture. The skin was closed with running 4-0 Monocryl stitch. The insertion site incision was closed with interrupted 4-0 Monocryl suture. Dermabond was applied. The patient has chemotherapy starting tomorrow, so the port was accessed with a Tsai needle externally. There was a good return of venous blood, and the tubing was then flushed and locked with heparinized saline. Sterile dressings were applied. The patient tolerated the procedure well and was taken to the PACU in stable condition. JOHN PAUL TURCIOS /[id number]
== END 2019-10-14 10:35 | disposition home or self-care (01) ==
LOC: MW.SDS 06:31
PROVIDERS: ATTEND Surgery
DX: C50.912 Malignant neoplasm of unspecified site of left female breast (principal); F41.8 Other specified anxiety disorders; I10 Essential (primary) hypertension; F17.210 Nicotine dependence, cigarettes, uncomplicated; E66.9 Obesity, unspecified; Z68.36 Body mass index [BMI] 36.0-36.9, adult; Z79.899 Other long term (current) drug therapy
CPT/HCPCS: 36561; 71045; 76000; A9270; C1788; J1100; J1642; J2001; J2250; J2405; J2704; J3010; J3370; J3490; J7050; J7120; Q9966

== ENCOUNTER 2020-06-10 19:11 | Emergency (ER) | payer BC ==
--- NOTE | 2020-06-10 19:32 | EDM.PDOC ---
<Terrance Morales - Last Filed: 06/11/20 06:55> ED HPI GENERAL MEDICAL PROBLEM - General Chief Complaint: Skin Complaint Stated Complaint: SICK Time Seen by Provider: 06/10/20 19:17 - History of Present Illness INITIAL COMMENTS - FREE TEXT/NARRATIVE: Patient was signed out to me by Poly Sanderson NP pending callback from At 7PM In short, this patient is a 44-year-old woman with a past medical history of invasive ductal carcinoma of the breast status post bilateral mastectomy in July in 1999 2019 who underwent radiation and chemotherapy who is in remission since December 2019 who presented to the emergency department today with 1 day of left breast redness and itching after scratching a left breast wound. I did reevaluate the patient and her vitals were normal and she had no further progression of the erythema. I did discuss with her at this time that I am pending consultation with general surgery here at [facility] for breast abscess. Labs reviewed revealed a normocytic anemia with a hemoglobin of 11.1 and hematocrit of 34.1. Lactic acid was normal. There was mild hyponatremia on CMP at 134, mild elevation in AST at 71, mild elevation in alkaline phosphatase at 176 and hypoalbuminemia at 3.1. Covid was negative. Imaging reviewed with a breast ultrasound revealing a large multilobulated hypoechoic mass centered in the 6:00 left breast along the superficial implant margin without internal blood flow which are favored to represent a complicated fluid collection including an abscess. Recommending percutaneous aspiration/biopsy. I spoke with general surgeon Dr. Galdamez who stated this will likely need IR drainage and evaluation by oncology. Therefore we do not have the resources capable of doing this here in [place]. I did discussion with the patient regarding her history. The patient states that her oncologist is Dr. Stinson at [facility] and her mastectomy was done at [facility] by surgeon Dr. Christiansen. I contacted [facility] and spoke with Dr. Velazco who is a partner of her oncologist. He states that at this time he recommends transfer to where the surgery was completed for the mastectomy and the reconstruction. Therefore I contacted [facility] and spoke with Dr. Lopez (surgeon) and Dr. Luna (Hospitalist) and they accepted the transfer. At this time I did provide the patient with IV vancomycin for breast abscess. Given IV vancomycin drip we did contact multiple ambulance services in and around [facility] and the only [facility] ambulance that is available for transport to [place] is here in [place] at approximately 6 AM. Therefore there will be a delay in transfer as I do not believe the patient meets indications for transfer via flight. This was discussed with the patient. She was amenable to this plan. After starting the IV vancomycin the patient did develop redness of her head and upper body consistent with "red man" syndrome with mild itching. The patient's vitals remained stable and she had no trouble breathing, chest pain, abdominal pain, nausea, or sensation of needing to have a bowel movement. At this time I do believe this is "red man" syndrome therefore we will decrease the rate and provide the patient with Benadryl and famotidine and reevaluate the patient. We will also provide the patient with 1 L of normal saline. DISPOSITION: The patient was transferred to [facility] in stable condition CONDITION: Serious PROCEDURES: None FINAL IMPRESSION(S)/DIAGNOSES: 1. Acute multilobulated left breast fluid collection versus abscess Terrance Morales M.D. - Related Data Allergies Allergy/AdvReac Type Severity Reaction Status Date / Time adhesive tape Allergy Blisters Verified 06/10/20 19:49 Home Meds: Home Meds Metoprolol Succinate [Toprol XL 50mg] 50 mg PO QAM 02/11/16 [History] Venlafaxine HCl [Venlafaxine HCl ER] 150 mg PO DAILY 02/11/16 [History] Pantoprazole Sodium 40 mg PO DAILY 05/15/17 [History] Anastrozole [Arimidex] 1 mg PO DAILY 06/10/20 [History] Departure - Departure Disposition: Admitted As Inpatient 64 Clinical Impression: Breast abscess - Discharge Information *PRESCRIPTION DRUG MONITORING PROGRAM REVIEWED*: No *COPY OF PRESCRIPTION DRUG MONITORING REPORT IN PATIENT RAINE: No Referrals: Rufina Leone NP [Primary Care Provider] - Forms: ED Department Discharge <Mike Alegria - Last Filed: 06/11/20 07:42> Departure - Departure Time of Disposition: 07:42 <Mac Sanderson - Last Filed: 06/14/20 10:11> ED HPI GENERAL MEDICAL PROBLEM - General Source of Information: Reports: Patient History Limitations: Reports: No Limitations - History of Present Illness INITIAL COMMENTS - FREE TEXT/NARRATIVE: HISTORY AND PHYSICAL: History of present illness: Patient is a 44-year-old female who presents to the emergency room with complaints of a skin infection. Patient has been dealing with recurrent breast cancer and had a bilateral mastectomy with reconstruction in July 2019. She finished therapy in December 2019 and is currently in remission. Over the past few weeks she has had a scab to the left breast that she states was itching. Last night she scratched the scab and woke up with redness to the breast area. Reports she generally feels unwell. Patient denies any fever, chills, headache, change in vision, syncope or near syncope. Denies any chest pain, back pain, shortness of breath or cough. Denies any abdominal pain, nausea, vomiting, diarrhea, constipation or dysuria. Has not noted any blood in urine or stool. Patient has been eating and drinking appropriately. Oncology history: invasive ductal carcinoma of the breast. History of port-A-Cath placement with previous infection and replacement which also needs to be removed. Reports its been "flipped" and needs to be removed. History of hypertension, anxiety and depression. Review of systems: As per history of present illness and below otherwise all systems reviewed and negative. Past medical history: As per history of present illness and as reviewed below otherwise noncontributory. Surgical history: As per history of present illness and as reviewed below otherwise noncontributory. Social history: See social history for further information Family history: As per history of present illness and as reviewed below otherwise noncontributory. Physical exam: General: Well developed and well nourished 44 year old female. Alert and orientated x 3. Nontoxic in appearance and in no acute distress. Vital signs are stable and have been reviewed by me. Nursing notes were reviewed. Family member has accompanied patient. HEENT: Atraumatic, normocephalic, pupils equal and reactive bilaterally, negative for conjunctival pallor or scleral icterus, mucous membranes moist, trachea midline. No drooling or trismus noted. No meningeal signs. No hot potato voice noted. Lungs: Clear to auscultation bilaterally. No wheezes, rales, or rhonchi. Normal work of breathing, no accessory muscles used. She has had a double mastectomy. Chronic decreased sensation of chest. Please see SKIN for details. Heart: S1S2, regular rate and rhythm without overt murmur, gallops, or rubs. No JVD. No peripheral edema Abdomen: Soft, nondistended, nontender. Normoactive bowel sounds. Negative for masses or costovertebral tenderness. Skin: Patient has had a bilateral mastectomy. There is a healing scab along the healed incision site with erythema around the remaining breast tissue. There is puckering/dimpling in the skin texture. No drainage. There is no fluctuance, induration although is tender to touch. The skin is warm/hot to touch. Remaining skin is intact, warm, dry. No lesions or rashes noted. Hematologic: No petechiae or purpra. Mucosa appropriate color and normal nail bed color and refill. Extremities: Atraumatic, moves all extremities per self without difficulty or deficits, negative for cords or calf pain. Neurovascular unremarkable. Neuro: Awake, alert, oriented. Cranial nerves II through XII unremarkable. Cerebellum unremarkable. Motor and sensory unremarkable throughout. Exam nonfocal. Psychiatric: Mood and affect are appropriate. Normal thought process. Answering questions appropriately. Notes: *This patient was seen and evaluated during the 2019 SARS-CoV-2 novel coronavirus pandemic period. Community viral transmission is ongoing at time of this encounter and the emergency department is operating under pandemic response procedures. Patient does not have an elevated WBC, or lactate. I did have Dr Morales look at the patient's breast. We will get an ultrasound to rule out an abscess. Ultrasound shows a large multilobulated hypoechoic mass centered in the 6 o`clock left breast along the superficial implant margin without internal blood flow definitively identified on the provided images. Findings are favored to represent a complicated fluid collection, including an abscess. Recommend fur ther evaluation with percutaneous aspiration/biopsy. Additional 5 mm cyst versus hypoechoic collection in the 11 o`clock left breast. 2200: Spoke with Dr Galdamez, general surgeon vice president investor relations, about this patient. Diagnostics: CBC, CMP, Lactate, BC x 2, Breast [employer]: SL Impression: Left sided breast abscess Definitive disposition and diagnosis as appropriate pending reevaluation and review of above. 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: Musculoskeletal History: Reports: None Neurological History: Reports: None Psychiatric History: Reports: Depression Endocrine/Metabolic History: Reports: Obesity/BMI 30+ Hematologic History: Reports: B12 Deficiency Immunologic History: Reports: Immunosuppression Oncologic (Cancer) History: Reports: Breast Dermatologic History: Reports: None - Past Surgical History Head Surgeries/Procedures: Reports: None HEENT Surgical History: Reports: None Cardiovascular Surgical History: Reports: Other (See Below) Other Cardiovascular Surgeries/Procedures: previous Port a Cath placement Respiratory Surgical History: Reports: None GI Surgical History: Reports: Bariatric Procedure, Cholecystectomy Other GI Surgeries/Procedures: Abdominoplasty Female Surgical History: Reports: Breast Biopsy, Mastectomy Other Female Surgeries/Procedures: hx of bilateral mastectomy Neurological Surgical History: Reports: None Musculoskeletal Surgical History: Reports: Arthroscopic Knee Other Musculoskeletal Surgeries/Procedures:: left ACL repair Oncologic Surgical History: Reports: None Dermatological Surgical History: Reports: Plastic Surgical Reconstruction/Repair Social & Family History - Family History Family Medical History: No Pertinent Family History - Caffeine Use Caffeine Use: Reports: None ED ROS GENERAL - Review of Systems Review Of Systems: Comprehensive ROS is negative, except as noted in HPI. ED EXAM, SKIN/RASH Exam: See Below Course - Vital Signs Last Recorded V/S: Last Vital Signs Temp 98.2 F 06/10/20 19:47 Pulse 73 06/11/20 08:30 Resp 16 06/11/20 08:30 BP 116/62 06/11/20 08:30 Pulse Ox 98 06/11/20 08:30 - Orders/Labs/Meds Labs: Laboratory Tests 06/10/20 06/10/20 06/10/20 Range/Units 19:53 19:53 19:53 WBC 7.91 (4.0-11.0) K/uL RBC 3.71 L (4.30-5.90) M/uL Hgb 11.1 L (12.0-16.0) g/dL Hct 34.1 L (36.0-46.0) % MCV 91.9 (80.0-98.0) fL MCH 29.9 (27.0-32.0) pg MCHC 32.6 (31.0-37.0) g/dL RDW Std Deviation 55.2 (28.0-62.0) fl RDW Coeff of Dionicio 17 H (11.0-15.0) % Plt Count 290 (150-400) K/uL MPV 8.80 (7.40-12.00) fL Neut % (Auto) 73.2 (48.0-80.0) % Lymph % (Auto) 16.6 (16.0-40.0) % Adams % (Auto) 8.0 (0.0-15.0) % Eos % (Auto) 1.9 (0.0-7.0) % Baso % (Auto) 0.3 (0.0-1.5) % Neut # (Auto) 5.8 H (1.4-5.7) K/uL Lymph # (Auto) 1.3 (0.6-2.4) K/uL Adams # (Auto) 0.6 (0.0-0.8) K/uL Eos # (Auto) 0.2 (0.0-0.7) K/uL Baso # (Auto) 0.0 (0.0-0.1) K/uL Nucleated RBC % 0.0 /100WBC Nucleated RBCs # 0 K/uL Lactate 1.3 (0.20-2.00) mmol/L Sodium 134 L (136-145) mmol/L Potassium 3.8 (3.5-5.1) mmol/L Chloride 99 (98-107) mmol/L Carbon Dioxide 27.7 (21.0-32.0) mmol/L BUN 13 (7.0-18.0) mg/dL Creatinine 0.8 (0.6-1.0) mg/dL Est Cr Clr Drug Dosing 79.07 mL/min Estimated GFR (MDRD) > 60.0 ml/min Glucose 82 (74-106) mg/dL Calcium 8.9 (8.5-10.1) mg/dL Total Bilirubin 0.1 L (0.2-1.0) mg/dL AST 71 H (15-37) IU/L ALT 49 (14-63) IU/L Alkaline Phosphatase 176 H (46-116) U/L Total Protein 7.2 (6.4-8.2) g/dL Albumin 3.1 L (3.4-5.0) g/dL Globulin 4.1 H (2.6-4.0) g/dL Albumin/Globulin Ratio 0.8 L (0.9-1.6) SARS-CoV-2 RNA (SMITA) (NEGATIVE) 06/10/20 Range/Units 20:00 WBC (4.0-11.0) K/uL RBC (4.30-5.90) M/uL Hgb (12.0-16.0) g/dL Hct (36.0-46.0) % MCV (80.0-98.0) fL MCH (27.0-32.0) pg MCHC (31.0-37.0) g/dL RDW Std Deviation (28.0-62.0) fl RDW Coeff of Dionicio (11.0-15.0) % Plt Count (150-400) K/uL MPV (7.40-12.00) fL Neut % (Auto) (48.0-80.0) % Lymph % (Auto) (16.0-40.0) % Adams % (Auto) (0.0-15.0) % Eos % (Auto) (0.0-7.0) % Baso % (Auto) (0.0-1.5) % Neut # (Auto) (1.4-5.7) K/uL Lymph # (Auto) (0.6-2.4) K/uL Adams # (Auto) (0.0-0.8) K/uL Eos # (Auto) (0.0-0.7) K/uL Baso # (Auto) (0.0-0.1) K/uL Nucleated RBC % /100WBC Nucleated RBCs # K/uL Lactate (0.20-2.00) mmol/L Sodium (136-145) mmol/L Potassium (3.5-5.1) mmol/L Chloride (98-107) mmol/L Carbon Dioxide (21.0-32.0) mmol/L BUN (7.0-18.0) mg/dL Creatinine (0.6-1.0) mg/dL Est Cr Clr Drug Dosing mL/min Estimated GFR (MDRD) ml/min Glucose (74-106) mg/dL Calcium (8.5-10.1) mg/dL Total Bilirubin (0.2-1.0) mg/dL AST (15-37) IU/L ALT (14-63) IU/L Alkaline Phosphatase (46-116) U/L Total Protein (6.4-8.2) g/dL Albumin (3.4-5.0) g/dL Globulin (2.6-4.0) g/dL Albumin/Globulin Ratio (0.9-1.6) SARS-CoV-2 RNA (SMITA) NEGATIVE (NEGATIVE) Meds: Medications Discontinued Medications Generic Name Dose Route Start Last Admin Trade Name Freq PRN Reason Stop Dose Admin Diphenhydramine HCl 50 mg 06/11/20 01:07 06/11/20 01:14 Benadryl IVPUSH 06/11/20 01:08 50 mg ONETIME ONE Administration Famotidine 40 mg 06/11/20 01:07 06/11/20 01:14 Pepcid IVPUSH 06/11/20 01:08 40 mg ONETIME ONE Administration Vancomycin HCl 1.5 gm/ Sodium 250 mls @ 166 mls/hr 06/10/20 23:38 06/11/20 00:10 Chloride IV 06/11/20 01:08 Not Given ONETIME ONE Vancomycin HCl 1.5 gm/ Premix 300 mls @ 300 mls/hr 06/10/20 23:55 06/11/20 00:02 IV 06/10/20 23:56 300 mls/hr ONETIME ONE Administration Sodium Chloride 1,000 mls @ 999 mls/hr 06/11/20 01:06 06/11/20 01:09 Normal Saline IV 06/11/20 02:06 999 mls/hr .Bolus ONE Administration
[2020-06-10] MEDS ORDERED: Iopamidol 612 MG/ML 100 ML Bottle IVPUSH STA (20:13)
[2020-06-10 20:35] LABS: BLOOD UREA NITROGEN,BUN 13 mg/dL (7.0-18.0); CARBON DIOXIDE,CO2 27.7 mmol/L (21.0-32.0); CHLORIDE,CL 99 mmol/L (98-107); GLUCOSE RANDOM 82 mg/dL (74-106); POTASSIUM,K 3.8 mmol/L (3.5-5.1); SODIUM,NA 134 mmol/L (136-145)
--- NOTE | 2020-06-10 21:54 | US ---
--- Preliminary Report --- --US Breast Left-- Reported postsurgical changes of bilateral mastectomy. Large multilobulated hypoechoic mass centered in the 6 o`clock left breast along the superficial implant margin without internal blood flow definitively identified on the provided images. Findings are favored to represent a complicated fluid collection, including an abscess. Recommend further evaluation with percutaneous aspiration/biopsy. Additional 5 mm cyst versus hypoechoic collection in the 11 o`clock left breast. Dictated by Albaro Catalan MD @ 06/10/2020 9:52:49 PM Preliminary Report by Dr. Albaro Catalan @ Jun 10 2020 9:52PM --- Preliminary Report ---
[2020-06-11] MEDS ORDERED: Sodium Chloride 0.9% 1,000 ML IV ONE (01:06)
[2020-06-11] MEDS ORDERED: diphenhydrAMINE 50 MG/ML SDV IVPUSH ONE (01:07)
[2020-06-11] MEDS ORDERED: Famotidine 20 MG/2 ML SDV IVPUSH ONE (01:07)
[2020-06-11 09:19] VITALS: BP 116/62; PULSE 73
== END 2020-06-11 09:13 | disposition critical access hospital (66) ==
LOC: MW.ED 19:11
DX: N61.1 Abscess of the breast and nipple (principal); I10 Essential (primary) hypertension; E66.9 Obesity, unspecified; K21.9 Gastro-esophageal reflux disease without esophagitis; R79.89 Other specified abnormal findings of blood chemistry; E87.1 Hypo-osmolality and hyponatremia; E88.09 Other disorders of plasma-protein metabolism, not elsewhere classified; Z20.822 Contact with and (suspected) exposure to COVID-19; Z91.09 Other allergy status, other than to drugs and biological substances; Z79.899 Other long term (current) drug therapy; Z68.34 Body mass index [BMI] 34.0-34.9, adult
CPT/HCPCS: 36415; 76641; 80053; 83605; 85025; 87040; 87635; 96365; 96375; 99285; J1200; J3370; J3490; J7030; 99283; U0002

== ENCOUNTER 2020-07-28 06:41 | Day surgery (SDC) | payer BC ==
[~2020-07-28 06:41] MED LIST changes: +ceFAZolin 2 GM in Premix Bag 1 BAG IV ONE
[2020-07-28] MEDS ORDERED: Propofol 200 MG/20 ML SDV ONE (07:12)
[2020-07-28] MEDS ORDERED: Lidocaine 2% 5 ML SDV ONE (07:12)
[2020-07-28] MEDS ORDERED: Ondansetron 4 MG/2 ML SDV ONE (07:12)
[2020-07-28] MEDS ORDERED: Midazolam 1 MG/ML 2 ML SDV ONE (07:12)
[2020-07-28] MEDS ORDERED: fentaNYL 100 MCG/2 ML SDV ONE (07:12)
[2020-07-28] MEDS ORDERED: Bupivacaine 0.5% 30 ML SDV ONE (07:14)
[2020-07-28] MEDS ORDERED: Octyl 2-Cyanoacrylate 1 Tube ONE (07:14)
[2020-07-28] MEDS ORDERED: Lidocaine 1% 20 ML MDV ONE (07:24)
--- NOTE | 2020-07-28 07:24 | PCM.PREANE ---
Preanesthetic Assessment - Anesthesia/Transfusion/Family Hx Anesthesia History: Prior Anesthesia Without Reaction Family History of Anesthesia Reaction: No Transfusion History: No Prior Transfusion(s) Intubation History: Unknown - Review of Systems General: No Symptoms Pulmonary: No Symptoms Cardiovascular: No Symptoms Gastrointestinal: No Symptoms Neurological: No Symptoms Other: Reports: None - Physical Assessment NPO Status Date: 07/28/20 NPO Status Time: 06:00 Vital Signs: Last Vital Signs Temp 36.4 C 07/28/20 06:50 Pulse 71 07/28/20 06:50 Resp 15 07/28/20 06:50 BP 140/92 H 07/28/20 06:50 Pulse Ox 95 07/28/20 06:50 Height: 1.65 m Weight: 93.44 kg ASA Class: 2 Mental Status: Alert & Oriented x3 Airway Class: Mallampati = 2 Dentition: Reports: Broken Tooth/Teeth (POOR DENTITION, MULTIPLE BROKEN TEETH, TEETH IN VARIOUS STAGES OF DECAY. NO LOOSE TEETH), Caries Thyro-Mental Finger Breadths: 3 Mouth Opening Finger Breadths: 3 ROM/Head Extension: Limited/Partial Lungs: Clear to Auscultation, Normal Respiratory Effort Cardiovascular: Regular Rate, Regular Rhythm - Allergies Allergies/Adverse Reactions: Allergies Allergy/AdvReac Type Severity Reaction Status Date / Time adhesive tape Allergy Blisters Verified 07/22/20 08:34 - Acknowledgements Anesthesia Type Planned: MAC (The patient understands and accepts anesthetic risks and benefits of MAC. Including possible damage to teeth (which are already in severe condition) if instrumentation of the airway is required. All questions answered. Consent signed. 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 Patient not sure of diagnosis. The tremors do not impair her activities of daily living.) Psychiatric History: Reports: Anxiety, Depression Endocrine/Metabolic History: Reports: Obesity/BMI 30+ (bmi=34) Hematologic History: Reports: B12 Deficiency Immunologic History: Reports: Immunosuppression Oncologic (Cancer) History: Reports: Breast Dermatologic History: Reports: None - Infectious Disease History Infectious Disease History: Reports: Chicken Pox, Scarlet Fever, Other (See Below) (covid negative) - Past Surgical History Head Surgeries/Procedures: Reports: None HEENT Surgical History: Reports: None Cardiovascular Surgical History: Reports: Other (See Below) Other Cardiovascular Surgeries/Procedures: previous Port a Cath placement Respiratory Surgical History: Reports: None GI Surgical History: Reports: Bariatric Procedure, Cholecystectomy Other GI Surgeries/Procedures: Abdominoplasty Female Surgical History: Reports: Breast Biopsy, Mastectomy Other Female Surgeries/Procedures: hx of bilateral mastectomy Endocrine Surgical History: Reports: None Neurological Surgical History: Reports: None Musculoskeletal Surgical History: Reports: Arthroscopic Knee Other Musculoskeletal Surgeries/Procedures:: left ACL repair Oncologic Surgical History: Reports: None Dermatological Surgical History: Reports: Plastic Surgical Reconstruction/Repair - History Comment History Comment: etoh at least "1x a week". - SUBSTANCE USE Tobacco Use Status *Q: Former Tobacco User Tobacco Use Within Last Twelve Months: Cigarettes (quit smoking 7 months ago) Recreational Drug Use History: No - HOME MEDS Home Medications: Home Meds Metoprolol Succinate [Toprol XL 50mg] 50 mg PO QAM 02/11/16 [History] Venlafaxine HCl [Venlafaxine HCl ER] 150 mg PO DAILY 02/11/16 [History] Pantoprazole Sodium 40 mg PO DAILY 05/15/17 [History] Anastrozole [Arimidex] 1 mg PO DAILY 07/27/20 [History] - CURRENT (IN HOUSE) MEDS Current Meds: Current Medications Lactated Ringer's (Ringers, Lactated) 1,000 mls @ 125 mls/hr IV ASDIRECTED PAULO Last Admin: 07/28/20 07:10 Dose: 125 mls/hr Documented by: Sodium Chloride (Sodium Chloride 0.9% 2.5 Ml Syringe) 2.5 ml FLUSH ASDIRECTED PRN PRN Reason: Keep Vein Open Sodium Chloride (Sodium Chloride 0.9% 10 Ml Sdv) 10 ml IV ASDIRECTED PRN PRN Reason: IV Use Sodium Chloride (Sodium Chloride 0.9% 10 Ml Syringe) 10 ml FLUSH ASDIRECTED PRN PRN Reason: Keep Vein Open Discontinued Medications Bupivacaine HCl (Bupivacaine 0.5% 30 Ml Sdv) Confirm Administered Dose 30 ml .ROUTE .STK-MED ONE Stop: 07/28/20 07:15 Fentanyl (Fentanyl 100 Mcg/2 Ml Sdv) Confirm Administered Dose 100 mcg .ROUTE .STK-MED ONE Stop: 07/28/20 07:13 Cefazolin Sodium/Dextrose 2 gm (/ Premix) 50 mls @ 100 mls/hr IV ONETIME ONE Stop: 07/22/20 13:55 Lidocaine (Lidocaine 2% 5 Ml Sdv) Confirm Administered Dose 5 ml .ROUTE .STK-MED ONE Stop: 07/28/20 07:13 Midazolam HCl (Midazolam 1 Mg/Ml 2 Ml Sdv) Confirm Administered Dose 2 mg .ROUTE .STK-MED ONE Stop: 07/28/20 07:13 Octyl Cyanoacrylate (Octyl 2-Cyanoacrylate 1 Tube) Confirm Administered Dose 1 applic .ROUTE .STK-MED ONE Stop: 07/28/20 07:15 Ondansetron HCl (Ondansetron 4 Mg/2 Ml Sdv) Confirm Administered Dose 4 mg .ROUTE .STK-MED ONE Stop: 07/28/20 07:13 Propofol (Propofol 200 Mg/20 Ml Sdv) Confirm Administered Dose 200 mg .ROUTE .STK-MED ONE Stop: 07/28/20 07:13
[2020-07-28] MEDS ORDERED: 50% Dextrose in Water 50 ML Syringe IVPUSH PRN (07:28)
[2020-07-28] MEDS ORDERED: HYDROmorphone 2 MG/ML Syringe IVPUSH PRN (07:28)
[2020-07-28] MEDS ORDERED: Naloxone 0.4 MG/ML Syringe IVPUSH PRN (07:28)
[2020-07-28] MEDS ORDERED: Albuterol 0.083% 2.5 MG/3 ML Neb Soln NEB PRN (07:28)
[2020-07-28] MEDS ORDERED: Ondansetron 4 MG/2 ML SDV IVPUSH PRN (07:28)
[2020-07-28] MEDS ORDERED: fentaNYL 100 MCG/2 ML SDV IVPUSH PRN (07:28)
[2020-07-28] MEDS ORDERED: EPINEPHrine 1:10,000 1 MG/10 ML Syringe IVPUSH PRN (07:28)
[2020-07-28] MEDS ORDERED: Atropine 0.1 MG/ML 10 ML Syringe IVPUSH PRN ×2 (07:28)
[2020-07-28] MEDS ORDERED: Ketorolac 30 MG/ML SDV ONE (08:21)
--- NOTE | 2020-07-28 08:40 | PCM.OPNOTE ---
- General Post-Op/Procedure Note Date of Surgery/Procedure: 07/28/20 Operative Procedure(s): Excision left internal jugular port a cath Findings: Intact left internal jugular port a cath. Port had flipped upside down in pocket. Pre Op Diagnosis: Breast cancer, port a cath in place Post-Op Diagnosis: same Anesthesia Technique: Local, MAC EBL in mLs: 2 Condition: Good
--- NOTE | 2020-07-28 08:45 | PCM.POSTAN ---
POST ANESTHESIA ASSESSMENT - MENTAL STATUS Mental Status: Alert, Oriented - VITAL SIGNS Vital Signs: Last Vital Signs Temp 36.2 C 07/28/20 08:26 Pulse 70 07/28/20 08:31 Resp 15 07/28/20 08:31 BP 110/85 07/28/20 08:31 Pulse Ox 94 L 07/28/20 08:31 - RESPIRATORY Respiratory Status: Respiratory Rate WNL, Airway Patent, O2 Saturation Stable - CARDIOVASCULAR CV Status: Pulse Rate WNL, Blood Pressure Stable - GASTROINTESTINAL GI Status: No Symptoms - PAIN Pain Score: 0 - POST OP HYDRATION Hydration Status: Adequate & Stable - OBSERVATIONS Free Text/Narrative:: No anesthesia problems, patient skipped recovery room stage of postoperative care
--- NOTE | 2020-07-28 08:46 | PCM48HPAN ---
Post Anesthesia Note - EVALUATION WITHIN 48HRS OF ANESTHETIC Vital Signs in Normal Range: Yes Patient Participated in Evaluation: Yes Respiratory Function Stable: Yes Airway Patent: Yes Cardiovascular Function Stable: Yes Hydration Status Stable: Yes Pain Control Satisfactory: Yes Nausea and Vomiting Control Satisfactory: Yes Mental Status Recovered: Yes Vital Signs: Last Vital Signs Temp 36.2 C 07/28/20 08:26 Pulse 69 07/28/20 08:36 Resp 15 07/28/20 08:36 BP 118/56 L 07/28/20 08:36 Pulse Ox 95 07/28/20 08:36 - COMMENTS/OBSERVATIONS Free Text/Narrative:: No anesthesia problems
[2020-07-28 08:48] VITALS: BP 116/64; PULSE 67
--- NOTE | 2020-07-28 14:47 | OR ---
SURGEON: AYLA ARROYO MD DATE OF PROCEDURE: 07/28/2020 PREOPERATIVE DIAGNOSIS: Breast cancer, left internal jugular Port-A-Cath in place. POSTOPERATIVE DIAGNOSIS: Breast cancer, left internal jugular Port-A-Cath in place. PROCEDURE PERFORMED: Excision of left internal jugular Port-A-Cath. PRIMARY SURGEON: Ayla Arroyo MD ANESTHESIA: MAC, local. FLUIDS: See Anesthesia record. ESTIMATED BLOOD LOSS: 2 mL. FINDINGS: Intact left internal jugular port. The port had flipped on its side in the anterior chest wall cavity. COMPLICATIONS: None. INDICATIONS: The patient is a 44-year-old female who presents today for a left internal jugular Port-A-Cath removal. She had breast cancer and underwent chemotherapy. Towards the end of her treatment, her Port-A-Cath device turned on itself making it unable to be used. The patient finished her chemotherapy through peripheral IVs. She has completed her cancer treatment and is ready to have her Port-A- Cath removed. I explained the procedure, expected perioperative course, and the risks including bleeding or infection, as well as the possibility of hemothorax or pneumothorax. The patient verbalized understanding and wishes to proceed. PROCEDURE IN DETAIL: The patient was brought to the OR, placed on the OR table in supine position. A time-out was completed verifying the patient's name, age, date of , allergies, and procedure to be performed. Monitored anesthesia care was induced. The left chest was prepped and draped in usual standard fashion. I anesthetized the area overlying the left anterior chest wall scar with 1% lidocaine plain as well as 0.5% Marcaine plain. A 15 blade was used to make an incision over the previous scar. Electrocautery was used to dissect down to the level of the scar capsule of the Port-A-Cath device. The port itself had flipped upside down. I grasped this with a hemostat and removed it from the site. The catheter tubing was connected and came out easily with no difficulty. Pressure was held on the left side of the neck for 1 minute. Pressure was released and the wound was inspected. It appeared to be hemostatic. The wound was closed with a running 3-0 Vicryl suture in the subcutaneous fat layer. The skin was closed with a running 4-0 Monocryl stitch. Dermabond and sterile dressings were applied. The patient tolerated the procedure well and was transferred to the PACU in stable condition. All counts were complete and correct at the end of the case. JOHN PAUL / TAM /[id number]
== END 2020-07-28 08:54 | disposition home or self-care (01) ==
LOC: MW.SDS 06:41
PROVIDERS: ATTEND Surgery
DX: T82.598A Other mechanical complication of other cardiac and vascular devices and implants, initial encounter (principal); F17.210 Nicotine dependence, cigarettes, uncomplicated; C50.912 Malignant neoplasm of unspecified site of left female breast; I10 Essential (primary) hypertension; Z79.899 Other long term (current) drug therapy; Z98.890 Other specified postprocedural states
CPT/HCPCS: 36590; 88300; A9270; J0690; J1885; J2250; J2704; J3490; J7120; J2405; J3010

== ENCOUNTER 2022-10-14 06:39 | Emergency (ER) | payer BC ==
[2022-10-14 06:54] VITALS: BP 127/84; PULSE 76
[2022-10-14] MEDS ORDERED: traMADol 50 MG Tab PO ONE (07:03)
[2022-10-14] MEDS ORDERED: Ibuprofen 600 MG Tab PO ONE (07:03)
== END 2022-10-14 08:39 | disposition home or self-care (01) ==
LOC: MW.ED 06:39
DX: S20.212A Contusion of left front wall of thorax, initial encounter (principal); I10 Essential (primary) hypertension; K21.9 Gastro-esophageal reflux disease without esophagitis; E66.9 Obesity, unspecified; Z68.39 Body mass index [BMI] 39.0-39.9, adult; Z91.048 Other nonmedicinal substance allergy status; Z79.899 Other long term (current) drug therapy; W18.30XA Fall on same level, unspecified, initial encounter
CPT/HCPCS: 71101; 99283; A9270

== ENCOUNTER 2023-01-18 04:14 | Emergency (ER) | payer BC ==
[2023-01-18] MEDS ORDERED: Lactated Ringers 1,000 ML IV ONE (04:52)
[2023-01-18] MEDS ORDERED: Ondansetron 4 MG/2 ML SDV IVPUSH ONE (04:52)
[2023-01-18 05:01] LABS: BASOPHILS PERCENT AUTO 0.4 % (0.0-1.5); EOSINOPHILS ABSOLUTE AUTO 0.3 K/uL (0.0-0.7); EOSINOPHILS PERCENT AUTO 3.7 % (0.0-7.0); HEMATOCRIT 41.6 % (36.0-46.0); HEMOGLOBIN 13.6 g/dL (12.0-16.0); LYMPHOCYTES ABSOLUTE AUTO 2.1 K/uL (0.6-2.4); LYMPHOCYTES PERCENT AUTO 29.7 % (16.0-40.0); MEAN CORPUSCULAR HEMOGLOBIN 30.7 pg (27.0-32.0); MEAN CORPUSCULAR HGB CONC 32.7 g/dL (31.0-37.0); MEAN CORPUSCULAR VOLUME 93.9 fL (80.0-98.0); MONOCYTES ABSOLUTE AUTO 0.4 K/uL (0.0-0.8); NEUTROPHILS ABSOLUTE AUTO 4.2 K/uL (1.4-5.7); NEUTROPHILS PERCENT AUTO 60.2 % (48.0-80.0); NRBC ABSOLUTE 0 K/uL; PLATELET COUNT,PLT 258 K/uL (150-400); RED BLOOD CELL COUNT 4.43 M/uL (4.30-5.90); WHITE BLOOD CELL COUNT,WBC 6.96 K/uL (4.0-11.0)
[2023-01-18 05:05] LABS: INR 1.02 (0.86-1.11)
[2023-01-18 05:21] LABS: A/G RATIO 0.7 (0.9-1.6); ALBUMIN 3.2 g/dL (3.4-5.0); BILIRUBIN TOTAL 0.2 mg/dL (0.2-1.0); CALCIUM 8.2 mg/dL (8.5-10.1); CARBON DIOXIDE,CO2 28.1 mmol/L (21.0-32.0); CREATININE 0.8 mg/dL (0.6-1.0); EST CRCL DRUG DOSING (CG) 76.54 mL/min; MAGNESIUM 1.8 mg/dL (1.8-2.4); POTASSIUM,K 3.3 mmol/L (3.5-5.1); PROTEIN TOTAL,TP 7.7 g/dL (6.4-8.2); TSH ULTRASENSITIVE 2.05 uIU/mL (0.36-3.74)
[2023-01-18] MEDS ORDERED: Iopamidol 755 MG/ML 500 ML Multipack Bottle IVPUSH ONE (06:02)
[2023-01-18 12:17] VITALS: BP 124/75; PULSE 85
== END 2023-01-18 12:15 | disposition home or self-care (01) ==
LOC: MW.ED 04:14
DX: F10.99 Alcohol use, unspecified with unspecified alcohol-induced disorder (principal); I10 Essential (primary) hypertension; K21.9 Gastro-esophageal reflux disease without esophagitis; E66.9 Obesity, unspecified; Z68.38 Body mass index [BMI] 38.0-38.9, adult; Z91.048 Other nonmedicinal substance allergy status; Z79.899 Other long term (current) drug therapy
CPT/HCPCS: 36415; 74177; 80053; 83690; 83735; 84443; 84484; 84703; 85025; 85610; 93005; 96361; 96374; 99284; J2405; J7120; Q9967; 93010

== ENCOUNTER 2024-07-29 07:22 | Day surgery (SDC) | payer BC ==
[2024-07-29] MEDS ORDERED: Naloxone 0.4 MG/ML SDV IVPUSH PRN (07:46)
[2024-07-29] MEDS ORDERED: fentaNYL 50 MCG/ML SDV IVPUSH PRN (07:46)
[2024-07-29] MEDS ORDERED: Albuterol 0.083% 2.5 MG/3 ML Neb Soln NEB PRN (07:46)
[2024-07-29] MEDS ORDERED: Phenylephrine HCl In 0.9% NaCl 1 MG/10 ML Syringe IVPUSH PRN (07:46)
[2024-07-29] MEDS ORDERED: HYDROmorphone 1 MG/ML Syringe IVPUSH PRN (07:46)
[2024-07-29] MEDS ORDERED: Morphine 2 MG/ML SYRINGE IVPUSH PRN (07:46)
[2024-07-29] MEDS ORDERED: Metoclopramide 10 MG/2 ML SDV IVPUSH PRN (07:46)
[2024-07-29] MEDS ORDERED: Ondansetron 4 MG/2 ML SDV IVPUSH PRN (07:46)
[2024-07-29] MEDS: Lactated Ringers 1,000 ML IV SCH (08:24)
[2024-07-29] MEDS ORDERED: fentaNYL 100 MCG/2 ML SDV ONE (08:34)
[2024-07-29] MEDS ORDERED: Propofol 200 MG/20 ML SDV ONE (08:34)
[2024-07-29] MEDS ORDERED: Lidocaine 2% 5 ML SDV ONE (10:34)
[2024-07-29] MEDS ORDERED: Midazolam 1 MG/ML 2 ML SDV ONE (10:34)
[2024-07-29] MEDS ORDERED: Bupivacaine 0.5% 30 ML SDV ONE (10:42)
[2024-07-29] MEDS ORDERED: Lidocaine 1% 20 ML MDV ONE (10:42)
[2024-07-29] MEDS ORDERED: ceFAZolin 1 GM Vial ONE (11:13)
[2024-07-29] MEDS ORDERED: Dexamethasone 4 MG/ML 5 ML MDV ONE (11:30)
[2024-07-29] MEDS ORDERED: Ondansetron 4 MG/2 ML SDV ONE (11:30)
[2024-07-29 13:01] VITALS: BP 114/67; PULSE 64
== END 2024-07-29 13:10 | disposition home or self-care (01) ==
LOC: MW.SDS 07:22
PROVIDERS: ATTEND Surgery
DX: C50.919 Malignant neoplasm of unspecified site of unspecified female breast (principal); I10 Essential (primary) hypertension; E66.9 Obesity, unspecified; F17.200 Nicotine dependence, unspecified, uncomplicated; Z68.37 Body mass index [BMI] 37.0-37.9, adult; Z79.899 Other long term (current) drug therapy
CPT/HCPCS: 36561; 71045; 76000; J0665; J0690; J1100; J1642; J2003; J2250; J2405; J2704; J3010; J7120; 00532; J3490

== ENCOUNTER 2024-08-14 00:46 | Inpatient (IN) | payer BC ==
[2024-08-14] MEDS ORDERED: Sodium Chloride 0.9% 2.5 ML Syringe FLUSH PRN (01:26)
[2024-08-14] MEDS ORDERED: Sodium Chloride 0.9% 10 ML Syringe FLUSH PRN (01:26)
[2024-08-14] MEDS: Sodium Chloride 0.9% 1,000 ML IV ONE (02:22)
[2024-08-14 02:23] LABS: APPEARANCE,URINE CLEAR; BILIRUBIN,URINE NEGATIVE (NEGATIVE); COLOR,URINE YELLOW; GLUCOSE,URINE NEGATIVE (NEGATIVE); KETONES,URINE NEGATIVE (NEGATIVE); LEUKOCYTE ESTERASE,URINE NEGATIVE (NEGATIVE); NITRITE,URINE NEGATIVE (NEGATIVE); OCCULT BLOOD,URINE NEGATIVE (NEGATIVE); PH,URINE 5.5 (5.0-8.0); PROTEIN,URINE NEGATIVE (NEGATIVE); UROBILINOGEN,URINE 0.2 EU/dL (<2.0)
[2024-08-14] MEDS: cefTRIAXone 2 GM in Sodium Chloride 0.9% 50 ML IV ONE (02:32)
[2024-08-14 02:41] LABS: HEMOGLOBIN 13.2 g/dL (12.0-16.0); MEAN CORPUSCULAR HEMOGLOBIN 29.9 pg (28.0-32.0); MEAN CORPUSCULAR VOLUME 90.5 fL (83.0-99.0); MEAN PLATELET VOLUME 9.8 fL (9.4-12.3); PLATELET COUNT,PLT 269 K/uL (150-400); RED BLOOD CELL COUNT 4.42 M/uL (4.10-5.30); WHITE BLOOD CELL COUNT,WBC 1.17 K/uL (3.9-11.3)
[2024-08-14 02:58] LABS: BACTERIA,URINE RARE (NEGATIVE); EPITHELIAL CELLS,URINE OCCASIONAL (NONE-FEW); RBC,URINE 0-1 (0-2/HPF); WBC,URINE 0-2 (0-5/HPF)
[2024-08-14 03:00] LABS: A/G RATIO 0.8 (0.9-1.6); ALANINE AMINOTRANSFERASE,ALT 140 IU/L (14-63); ALBUMIN 3.5 g/dL (3.4-5.0); ALKALINE PHOSPHATASE 124 U/L (46-116); ASPARTATE AMNIOTRANSFERASE,AST 87 IU/L (15-37); BILIRUBIN TOTAL 0.5 mg/dL (0.2-1.0); BLOOD UREA NITROGEN,BUN 5 mg/dL (7.0-18.0); CALCIUM 9.1 mg/dL (8.5-10.1); CARBON DIOXIDE,CO2 25.9 mmol/L (21.0-32.0); CHLORIDE,CL 97 mmol/L (98-107); CREATININE 0.8 mg/dL (0.6-1.0); GLUCOSE RANDOM 100 mg/dL (74-106); POTASSIUM,K 3.5 mmol/L (3.5-5.1); PROTEIN TOTAL,TP 7.8 g/dL (6.4-8.2); SODIUM,NA 135 mmol/L (136-145)
[2024-08-14 03:01] LABS: ESTIMATED GFR 90 mL/min (>60)
[2024-08-14 03:04] LABS: LACTIC ACID 2.4 mmol/L (0.4-2.0)
[2024-08-14] MEDS: cefTRIAXone 1 GM Vial IV ONE (03:15)
[2024-08-14 03:30] LABS: EOSINOPHILS ABSOLUTE MAN 0.02 K/uL (0.00-0.45); EOSINOPHILS PERCENT MAN 2 % (0-6); LYMPHOCYTES ABSOLUTE MAN 1.08 K/uL (1.00-4.80); LYMPHOCYTES PERCENT MAN 92 % (24-44); MONOCYTES ABSOLUTE MAN 0.06 K/uL (0.00-0.80); MONOCYTES PERCENT MAN 5 % (0-8); SEG NEUTROPHILS ABSOLUTE MAN 0.01 K/uL (1.80-7.70); SEG NEUTROPHILS PERCENT MAN 1 % (41-71)
[2024-08-14] MEDS: Acetaminophen 325 MG Tab PO ONE (04:30)
[2024-08-14] MEDS: Sodium Chloride 0.9% 1,000 ML IV SCH (07:45)
[2024-08-14] MEDS: VANCOmycin 2 GM/400 ML 2 GM in Premix Bag 1 BAG IV ONE (09:01)
[2024-08-14] MEDS: Atropine/Diphenoxylate 0.025-2.5 MG Tab PO PRN (10:30)
[2024-08-14] MEDS ORDERED: Diphenhydramine/Lidocaine/MagAl/Simethicone 119 ML Bottle PO PRN (10:51)
[2024-08-14] MEDS ORDERED: Bupivacaine 0.5% 30 ML SDV ONE (10:56)
[2024-08-14] MEDS ORDERED: Succinylcholine/Sod PF 100 MG/5 ML SYRINGE IV ONE (11:05)
[2024-08-14] MEDS ORDERED: Rocuronium Bromide 50 MG/5 ML Syringe ONE ×2 (11:05→11:08)
[2024-08-14] MEDS ORDERED: Propofol 200 MG/20 ML SDV ONE (11:05)
[2024-08-14] MEDS ORDERED: Ondansetron 4 MG/2 ML SDV IVPUSH PRN (11:06)
[2024-08-14] MEDS ORDERED: Metoclopramide 10 MG/2 ML SDV IVPUSH PRN (11:06)
[2024-08-14] MEDS ORDERED: HYDROmorphone 1 MG/ML Syringe IVPUSH PRN (11:06)
[2024-08-14] MEDS ORDERED: Albuterol 0.083% 2.5 MG/3 ML Neb Soln NEB PRN (11:06)
[2024-08-14] MEDS ORDERED: fentaNYL 50 MCG/ML SDV IVPUSH PRN (11:06)
[2024-08-14] MEDS ORDERED: Magnesium Sulfate (4.06 MEQ/ML) 5 GM/10 ML SDV ONE (11:06)
[2024-08-14] MEDS ORDERED: Phenylephrine HCl In 0.9% NaCl 1 MG/10 ML Syringe IVPUSH PRN (11:06)
[2024-08-14] MEDS ORDERED: fentaNYL 100 MCG/2 ML SDV ONE (11:06)
[2024-08-14] MEDS ORDERED: Naloxone 0.4 MG/ML SDV IVPUSH PRN (11:06)
[2024-08-14] MEDS ORDERED: Morphine 2 MG/ML SYRINGE IVPUSH PRN (11:06)
[2024-08-14] MEDS ORDERED: Lidocaine 2% 5 ML SDV ONE (11:08)
[2024-08-14] MEDS ORDERED: Ketorolac 30 MG/ML SDV ONE (11:15)
[2024-08-14] MEDS: Venlafaxine 75 MG Cap.ER PO SCH (13:26)
[2024-08-14] MEDS: Metoprolol Succinate 100 MG Tab.ER PO SCH (13:26)
[2024-08-14] MEDS: Pantoprazole 40 MG Tab.CR PO SCH (13:26)
[2024-08-14] MEDS: Nystatin Susp 100,000 Unit/ML 5 ML UD Cup PO SCH (15:56)
[2024-08-14] MEDS: VANCOmycin 1.25 GM in Sodium Chloride 0.9% 250 ML IV SCH (19:38)
[2024-08-14] MEDS: Acetaminophen 325 MG Tab PO PRN (19:39)
[2024-08-15] MEDS: cefTRIAXone 2 GM in Sodium Chloride 0.9% 50 ML IV SCH (01:55)
[2024-08-15] MEDS: Acetaminophen/oxyCODONE 325-5 MG Tab PO PRN (06:45)
[2024-08-15 06:51] LABS: HEMATOCRIT 32.1 % (37.0-47.0); HEMOGLOBIN 10.7 g/dL (12.0-16.0); MEAN CORPUSCULAR HEMOGLOBIN 30.7 pg (28.0-32.0); MEAN CORPUSCULAR HGB CONC 33.3 g/dL (32.0-36.0); MEAN PLATELET VOLUME 9.7 fL (9.4-12.3); PLATELET COUNT,PLT 202 K/uL (150-400); RED BLOOD CELL COUNT 3.49 M/uL (4.10-5.30)
[2024-08-15 06:59] LABS: WHITE BLOOD CELL COUNT,WBC 0.76 K/uL (3.9-11.3)
[2024-08-15 07:08] LABS: CALCIUM 8.3 mg/dL (8.5-10.1); CARBON DIOXIDE,CO2 27.6 mmol/L (21.0-32.0); CREATININE 0.7 mg/dL (0.6-1.0); EST CRCL DRUG DOSING (CG) 86.52 mL/min; POTASSIUM,K 4.2 mmol/L (3.5-5.1)
[2024-08-15 07:36] LABS: SEG NEUTROPHILS ABSOLUTE MAN 0.01 K/uL (1.80-7.70); SEG NEUTROPHILS PERCENT MAN 1 % (41-71)
[2024-08-15 07:37] LABS: BASOPHILS ABSOLUTE MAN 0.01 K/uL (0.00-0.20); BASOPHILS PERCENT MAN 1 % (0-1); EOSINOPHILS ABSOLUTE MAN 0.01 K/uL (0.00-0.45); EOSINOPHILS PERCENT MAN 1 % (0-6); LYMPHOCYTES ABSOLUTE MAN 0.65 K/uL (1.00-4.80); LYMPHOCYTES PERCENT MAN 86 % (24-44); MONOCYTES ABSOLUTE MAN 0.08 K/uL (0.00-0.80); MONOCYTES PERCENT MAN 11 % (0-8)
[2024-08-15 07:40] LABS: PLATELET COUNT ESTIMATE ADEQUATE
[2024-08-15] MEDS: [UNRECOGNIZED DRUG - OTHER] SUBCUT SCH (12:04)
[2024-08-15] MEDS: Nystatin Topical Powder 15 GM Bottle TOP SCH (19:42)
[2024-08-16 09:42] LABS: HEMATOCRIT 31.2 % (37.0-47.0); HEMOGLOBIN 10.2 g/dL (12.0-16.0); MEAN CORPUSCULAR HEMOGLOBIN 30.1 pg (28.0-32.0); MEAN CORPUSCULAR HGB CONC 32.7 g/dL (32.0-36.0); MEAN PLATELET VOLUME 9.5 fL (9.4-12.3); PLATELET COUNT,PLT 201 K/uL (150-400); RED BLOOD CELL COUNT 3.39 M/uL (4.10-5.30); WHITE BLOOD CELL COUNT,WBC 1.85 K/uL (3.9-11.3)
[2024-08-16 10:17] LABS: NRBC PERCENT 2.9 /100WBC (0.0-0.2)
[2024-08-16 10:19] LABS: BASOPHILS ABSOLUTE MAN 0.04 K/uL (0.00-0.20); BASOPHILS PERCENT MAN 2 % (0-1); LYMPHOCYTES ABSOLUTE MAN 1.26 K/uL (1.00-4.80); LYMPHOCYTES PERCENT MAN 68 % (24-44); MONOCYTES ABSOLUTE MAN 0.52 K/uL (0.00-0.80); MONOCYTES PERCENT MAN 28 % (0-8); NRBC ABSOLUTE 0.05 K/uL (0.00-0.02); SEG NEUTROPHILS ABSOLUTE MAN 0.04 K/uL (1.80-7.70); SEG NEUTROPHILS PERCENT MAN 2 % (41-71)
[2024-08-16 10:20] LABS: PLATELET COUNT ESTIMATE ADEQUATE
[2024-08-16 10:23] LABS: CARBON DIOXIDE,CO2 23.7 mmol/L (21.0-32.0); CREATININE 0.9 mg/dL (0.6-1.0); EST CRCL DRUG DOSING (CG) 67.29 mL/min; POTASSIUM,K 3.2 mmol/L (3.5-5.1)
[2024-08-16] MEDS: Cefepime 2 GM in Sodium Chloride 0.9% 50 ML IV SCH (14:07)
[2024-08-17 06:16] LABS: HEMATOCRIT 33.3 % (37.0-47.0); MEAN CORPUSCULAR HEMOGLOBIN 30.3 pg (28.0-32.0); MEAN CORPUSCULAR VOLUME 91.7 fL (83.0-99.0); MEAN PLATELET VOLUME 9.9 fL (9.4-12.3); NRBC ABSOLUTE 0.35 K/uL (0.00-0.02); NRBC PERCENT 4.1 /100WBC (0.0-0.2); PLATELET COUNT,PLT 216 K/uL (150-400); RED BLOOD CELL COUNT 3.63 M/uL (4.10-5.30); WHITE BLOOD CELL COUNT,WBC 8.63 K/uL (3.9-11.3)
[2024-08-17 06:37] LABS: CALCIUM 8.5 mg/dL (8.5-10.1); CREATININE 0.8 mg/dL (0.6-1.0); EST CRCL DRUG DOSING (CG) 75.7 mL/min; POTASSIUM,K 3.4 mmol/L (3.5-5.1)
[2024-08-17 07:45] LABS: BAND ABSOLUTE MAN 0.95; BAND PERCENT MAN 11 %; BASOPHILS ABSOLUTE MAN 0.26 K/uL (0.00-0.20); BASOPHILS PERCENT MAN 3 % (0-1); LYMPHOCYTES ABSOLUTE MAN 3.37 K/uL (1.00-4.80); LYMPHOCYTES PERCENT MAN 39 % (24-44); METAMYELOCYTE ABSOLUTE MAN 0.35; METAMYELOCYTE PERCENT MAN 4 %; MONOCYTES PERCENT MAN 22 % (0-8); MYELOCYTE ABSOLUTE MAN 0.69; MYELOCYTE PERCENT MAN 8 %; SEG NEUTROPHILS ABSOLUTE MAN 1.12 K/uL (1.80-7.70); SEG NEUTROPHILS PERCENT MAN 13 % (41-71)
[2024-08-17] MEDS: ceFAZolin 2 GM in Sodium Chloride 0.9% 50 ML IV SCH (12:56)
[2024-08-18 06:13] LABS: HEMATOCRIT 35.8 % (37.0-47.0); HEMOGLOBIN 11.6 g/dL (12.0-16.0); MEAN CORPUSCULAR HEMOGLOBIN 29.9 pg (28.0-32.0); MEAN CORPUSCULAR HGB CONC 32.4 g/dL (32.0-36.0); MEAN CORPUSCULAR VOLUME 92.3 fL (83.0-99.0); MEAN PLATELET VOLUME 9.6 fL (9.4-12.3); NRBC ABSOLUTE 0.52 K/uL (0.00-0.02); NRBC PERCENT 1.3 /100WBC (0.0-0.2); PLATELET COUNT,PLT 240 K/uL (150-400); RED BLOOD CELL COUNT 3.88 M/uL (4.10-5.30)
[2024-08-18 06:23] LABS: WHITE BLOOD CELL COUNT,WBC 40.31 K/uL (3.9-11.3)
[2024-08-18 06:28] LABS: CALCIUM 8.7 mg/dL (8.5-10.1); CARBON DIOXIDE,CO2 25.5 mmol/L (21.0-32.0); CREATININE 0.9 mg/dL (0.6-1.0); EST CRCL DRUG DOSING (CG) 67.29 mL/min; POTASSIUM,K 3.4 mmol/L (3.5-5.1)
[2024-08-18 07:08] LABS: BAND ABSOLUTE MAN 9.27; BAND PERCENT MAN 23 %; LYMPHOCYTES ABSOLUTE MAN 5.64 K/uL (1.00-4.80); LYMPHOCYTES PERCENT MAN 14 % (24-44); METAMYELOCYTE ABSOLUTE MAN 1.21; METAMYELOCYTE PERCENT MAN 3 %; MONOCYTES ABSOLUTE MAN 2.82 K/uL (0.00-0.80); MONOCYTES PERCENT MAN 7 % (0-8); MYELOCYTE ABSOLUTE MAN 4.43; MYELOCYTE PERCENT MAN 11 %; SEG NEUTROPHILS ABSOLUTE MAN 16.93 K/uL (1.80-7.70); SEG NEUTROPHILS PERCENT MAN 42 % (41-71)
[2024-08-18] MEDS: Potassium Chloride 20 MEQ Tab.ER PO ONE (09:53)
[2024-08-19 07:57] LABS: HEMATOCRIT 35.3 % (37.0-47.0); HEMOGLOBIN 11.6 g/dL (12.0-16.0); MEAN CORPUSCULAR HEMOGLOBIN 30.3 pg (28.0-32.0); MEAN CORPUSCULAR HGB CONC 32.9 g/dL (32.0-36.0); MEAN CORPUSCULAR VOLUME 92.2 fL (83.0-99.0); MEAN PLATELET VOLUME 9.6 fL (9.4-12.3); NRBC ABSOLUTE 0.23 K/uL (0.00-0.02); NRBC PERCENT 0.7 /100WBC (0.0-0.2); PLATELET COUNT,PLT 209 K/uL (150-400); RED BLOOD CELL COUNT 3.83 M/uL (4.10-5.30)
[2024-08-19 08:05] LABS: WHITE BLOOD CELL COUNT,WBC 33.69 K/uL (3.9-11.3)
[2024-08-19 08:24] LABS: A/G RATIO 0.8 (0.9-1.6); ALBUMIN 2.8 g/dL (3.4-5.0); BILIRUBIN TOTAL 0.2 mg/dL (0.2-1.0); CALCIUM 8.7 mg/dL (8.5-10.1); CARBON DIOXIDE,CO2 28.1 mmol/L (21.0-32.0); CREATININE 0.8 mg/dL (0.6-1.0); EST CRCL DRUG DOSING (CG) 75.7 mL/min; MAGNESIUM 1.8 mg/dL (1.8-2.4); POTASSIUM,K 3.7 mmol/L (3.5-5.1); PROTEIN TOTAL,TP 6.2 g/dL (6.4-8.2)
[2024-08-19 08:32] LABS: BAND ABSOLUTE MAN 0.67; BAND PERCENT MAN 2 %; BASOPHILS ABSOLUTE MAN 0.34 K/uL (0.00-0.20); BASOPHILS PERCENT MAN 1 % (0-1); LYMPHOCYTES ABSOLUTE MAN 4.72 K/uL (1.00-4.80); LYMPHOCYTES PERCENT MAN 14 % (24-44); METAMYELOCYTE ABSOLUTE MAN 0.34; METAMYELOCYTE PERCENT MAN 1 %; SEG NEUTROPHILS ABSOLUTE MAN 20.89 K/uL (1.80-7.70); SEG NEUTROPHILS PERCENT MAN 62 % (41-71)
[2024-08-19 08:33] LABS: MONOCYTES ABSOLUTE MAN 4.04 K/uL (0.00-0.80); MONOCYTES PERCENT MAN 12 % (0-8); MYELOCYTE PERCENT MAN 8 %; NRBC MANUAL 2 %
[2024-08-19 13:45] VITALS: BP 139/64; PULSE 63
== END 2024-08-19 13:10 | disposition home or self-care (01) | DRG 721 ==
LOC: MW.ED 00:46 → MW.MS 04:01 → OBSVTOIN 09:58 → MW.MS 12:27
PROVIDERS: ADMIT Internal Medicine; ATTEND Internal Medicine
PROC: 0JPT0WZ Removal of Totally Implantable Vascular Access Device from Trunk Subcutaneous Tissue and Fascia, Open Approach (ICD-10-PCS; principal; 2024-08-14 11:15)
DX: T80.211A Bloodstream infection due to central venous catheter, initial encounter (principal); L03.313 Cellulitis of chest wall; D70.9 Neutropenia, unspecified; I10 Essential (primary) hypertension; Z68.37 Body mass index [BMI] 37.0-37.9, adult; K21.9 Gastro-esophageal reflux disease without esophagitis; F41.9 Anxiety disorder, unspecified; F32.A Depression, unspecified; K44.9 Diaphragmatic hernia without obstruction or gangrene; E66.9 Obesity, unspecified; E53.8 Deficiency of other specified B group vitamins; Z85.3 Personal history of malignant neoplasm of breast; Z98.890 Other specified postprocedural states; Z90.49 Acquired absence of other specified parts of digestive tract; Z79.899 Other long term (current) drug therapy
CPT/HCPCS: 00400; 36415; 71045; 71045-26; 80048; 80053; 80202; 81001; 83605; 83735; 85025; 87040; 87070; 87075; 87077; 87186; 87205; 93005; 96365; 96367; 99284; 99285-25; A9270-GY; G0378; J0665; J0690; J0692; J0696; J1885; J2003; J2704; J3010; J3371; J3372; J3475; J3490; J7030; J7050; Q5125

== ENCOUNTER 2024-09-03 18:21 | Emergency (ER) | payer BC ==
[2024-09-03 19:49] VITALS: BP 136/71; PULSE 71
== END 2024-09-03 19:46 | disposition home or self-care (01) ==
LOC: MW.ED 18:21
DX: N76.0 Acute vaginitis (principal); B37.31 Acute candidiasis of vulva and vagina; I10 Essential (primary) hypertension; Z91.048 Other nonmedicinal substance allergy status; Z79.899 Other long term (current) drug therapy
CPT/HCPCS: 96372; 99283; J1100; 99282

== ENCOUNTER 2024-09-23 06:27 | Day surgery (SDC) | payer BC ==
[~2024-09-23 06:27] MED LIST changes: -Lactated Ringers 1,000 ML IV SCH; -Sodium Chloride 0.9% 10 ML SDV IV PRN; +Sodium Chloride 0.9% 20 ML SDV IV PRN; -ceFAZolin 2 GM in Premix Bag 1 BAG IV ONE
[2024-09-23] MEDS: Lactated Ringers 1,000 ML IV SCH (06:56)
[2024-09-23] MEDS ORDERED: Bupivacaine 0.5% 30 ML SDV ONE (07:09)
[2024-09-23] MEDS ORDERED: Lidocaine 1% 20 ML MDV ONE (07:09)
[2024-09-23] MEDS ORDERED: Propofol 200 MG/20 ML SDV ONE (07:15)
[2024-09-23] MEDS ORDERED: Midazolam 1 MG/ML 2 ML SDV ONE (07:15)
[2024-09-23] MEDS ORDERED: Lidocaine 1% 5 ML VIAL ONE (07:15)
[2024-09-23] MEDS ORDERED: fentaNYL 100 MCG/2 ML SDV ONE (07:15)
[2024-09-23] MEDS ORDERED: Ondansetron 4 MG/2 ML SDV ONE (07:17)
[2024-09-23] MEDS ORDERED: Dexamethasone 4 MG/ML 5 ML MDV ONE (07:17)
[2024-09-23] MEDS: Piperacillin/Tazobactam 4.5 GM in Sodium Chloride 0.9% 100 ML IV ONE (07:29)
[2024-09-23] MEDS ORDERED: Albuterol 0.083% 2.5 MG/3 ML Neb Soln NEB PRN (07:55)
[2024-09-23] MEDS ORDERED: Metoclopramide 10 MG/2 ML SDV IVPUSH PRN (07:55)
[2024-09-23] MEDS ORDERED: Morphine 2 MG/ML SYRINGE IVPUSH PRN (07:55)
[2024-09-23] MEDS ORDERED: Phenylephrine HCl In 0.9% NaCl 1 MG/10 ML Syringe IVPUSH PRN (07:55)
[2024-09-23] MEDS ORDERED: Naloxone 0.4 MG/ML SDV IVPUSH PRN (07:55)
[2024-09-23] MEDS ORDERED: fentaNYL 50 MCG/ML SDV IVPUSH PRN (07:55)
[2024-09-23] MEDS ORDERED: HYDROmorphone 1 MG/ML Syringe IVPUSH PRN (07:55)
[2024-09-23] MEDS ORDERED: Ondansetron 4 MG/2 ML SDV IVPUSH PRN (07:55)
[2024-09-23 08:01] LABS: HEMATOCRIT 31.1 % (37.0-47.0); HEMOGLOBIN 10.5 g/dL (12.0-16.0); MEAN CORPUSCULAR HEMOGLOBIN 31.1 pg (28.0-32.0); MEAN CORPUSCULAR HGB CONC 33.8 g/dL (32.0-36.0); MEAN PLATELET VOLUME 10.1 fL (9.4-12.3); NRBC ABSOLUTE 0.05 K/uL (0.00-0.02); NRBC PERCENT 1.5 /100WBC (0.0-0.2); PLATELET COUNT,PLT 171 K/uL (150-400); RED BLOOD CELL COUNT 3.38 M/uL (4.10-5.30); WHITE BLOOD CELL COUNT,WBC 3.27 K/uL (3.9-11.3)
[2024-09-23] MEDS ORDERED: Phenylephrine HCl In 0.9% NaCl 1 MG/10 ML Syringe ONE (08:39)
[2024-09-23 10:16] VITALS: PULSE 79
[2024-09-23 10:22] VITALS: BP 102/57
== END 2024-09-23 10:15 | disposition home or self-care (01) ==
LOC: MW.SDS 06:27
PROVIDERS: ATTEND Surgery
DX: C50.912 Malignant neoplasm of unspecified site of left female breast (principal); F41.8 Other specified anxiety disorders; I10 Essential (primary) hypertension; Z79.899 Other long term (current) drug therapy; K21.9 Gastro-esophageal reflux disease without esophagitis
CPT/HCPCS: 36415; 36561; 71045; 76000; 85027; C1788; J0665; J1100; J1642; J2003; J2250; J2371; J2543; J2704; J3010; J7120; 00532; J2405; J3490

== ENCOUNTER 2024-11-24 10:25 | Emergency (ER) | payer BC ==
[2024-11-24 17:10] VITALS: BP 143/85; PULSE 95
== END 2024-11-24 12:34 | disposition home or self-care (01) ==
LOC: MW.ED 10:25
DX: L02.512 Cutaneous abscess of left hand (principal); I10 Essential (primary) hypertension; K21.9 Gastro-esophageal reflux disease without esophagitis; Z98.84 Bariatric surgery status; Z90.49 Acquired absence of other specified parts of digestive tract; Z91.041 Radiographic dye allergy status; Z79.899 Other long term (current) drug therapy; Z75.3 Unavailability and inaccessibility of health-care facilities
CPT/HCPCS: 26010; 73140; 99283; A9270

== ENCOUNTER 2025-02-21 12:46 | Inpatient (IN) | payer BC ==
[2025-02-21] MEDS ORDERED: Sodium Chloride 0.9% 10 ML Syringe FLUSH PRN ×2 (13:49→17:52)
[2025-02-21] MEDS ORDERED: Sodium Chloride 0.9% 2.5 ML Syringe FLUSH PRN ×2 (13:49→17:52)
[2025-02-21 14:45] LABS: BASOPHILS ABSOLUTE AUTO 0.04 K/uL (0.00-0.20); BASOPHILS PERCENT AUTO 0.3 % (0.0-1.0); EOSINOPHILS ABSOLUTE AUTO 0.04 K/uL (0.00-0.45); EOSINOPHILS PERCENT AUTO 0.3 % (0.0-6.0); IMMATURE GRAN ABSOLUTE AUTO 0.04 K/uL (0.00-0.05); IMMATURE GRAN PERCENT AUTO 0.3 % (0.0-0.4); LYMPHOCYTES ABSOLUTE AUTO 1.24 K/uL (1.00-4.80); LYMPHOCYTES PERCENT AUTO 10.8 % (24.0-44.0); MEAN PLATELET VOLUME 9.8 fL (9.4-12.3); MONOCYTES ABSOLUTE AUTO 0.77 K/uL (0.00-0.80); MONOCYTES PERCENT AUTO 6.7 % (0.0-8.0); NEUTROPHILS ABSOLUTE AUTO 9.40 K/uL (1.80-7.70); NEUTROPHILS PERCENT AUTO 81.6 % (41.0-71.0); NRBC ABSOLUTE 0.00 K/uL (0.00-0.02); NRBC PERCENT 0.0 /100WBC (0.0-0.2); PLATELET COUNT,PLT 325 K/uL (150-400); RED BLOOD CELL COUNT 3.04 M/uL (4.10-5.30); WHITE BLOOD CELL COUNT,WBC 11.53 K/uL (3.9-11.3)
[2025-02-21 15:08] LABS: A/G RATIO 0.5 (0.9-1.6); ALANINE AMINOTRANSFERASE,ALT 29.0 IU/L (14-63); ASPARTATE AMNIOTRANSFERASE,AST 82.0 IU/L (15-37); BILIRUBIN TOTAL 0.5 mg/dL (0.2-1.0); BLOOD UREA NITROGEN,BUN 2.0 mg/dL (7.0-18.0); CARBON DIOXIDE,CO2 21.8 mmol/L (21.0-32.0); CHLORIDE,CL 104.0 mmol/L (98-107); CREATININE 0.6 mg/dL (0.6-1.0); EST CRCL DRUG DOSING (CG) 99.82 mL/min; ESTIMATED GFR 109.0 mL/min (>60); GLUCOSE RANDOM 95.0 mg/dL (74-106); POTASSIUM,K 3.8 mmol/L (3.5-5.1); PROTEIN TOTAL,TP 6.4 g/dL (6.4-8.2); SODIUM,NA 141.0 mmol/L (136-145)
[2025-02-21 15:11] LABS: LACTIC ACID 3.8 mmol/L (0.4-2.0)
[2025-02-21] MEDS: cefTRIAXone 1 GM in Water For Injection, Sterile 10 ML IVPUSH ONE (15:30)
[2025-02-21] MEDS: Ondansetron 4 MG/2 ML SDV IVPUSH ONE (15:57)
[2025-02-21 18:11] LABS: APPEARANCE,URINE CLEAR; GLUCOSE,URINE NEGATIVE (NEGATIVE); OCCULT BLOOD,URINE NEGATIVE (NEGATIVE)
[2025-02-22 05:59] LABS: BASOPHILS ABSOLUTE AUTO 0.04 K/uL (0.00-0.20); BASOPHILS PERCENT AUTO 0.7 % (0.0-1.0); EOSINOPHILS ABSOLUTE AUTO 0.16 K/uL (0.00-0.45); EOSINOPHILS PERCENT AUTO 2.9 % (0.0-6.0); IMMATURE GRAN ABSOLUTE AUTO 0.01 K/uL (0.00-0.05); IMMATURE GRAN PERCENT AUTO 0.2 % (0.0-0.4); LYMPHOCYTES ABSOLUTE AUTO 1.87 K/uL (1.00-4.80); LYMPHOCYTES PERCENT AUTO 34.0 % (24.0-44.0); MEAN PLATELET VOLUME 9.4 fL (9.4-12.3); MONOCYTES ABSOLUTE AUTO 0.49 K/uL (0.00-0.80); MONOCYTES PERCENT AUTO 8.9 % (0.0-8.0); NEUTROPHILS ABSOLUTE AUTO 2.93 K/uL (1.80-7.70); NEUTROPHILS PERCENT AUTO 53.3 % (41.0-71.0); NRBC ABSOLUTE 0.00 K/uL (0.00-0.02); NRBC PERCENT 0.0 /100WBC (0.0-0.2); PLATELET COUNT,PLT 257 K/uL (150-400); RED BLOOD CELL COUNT 2.76 M/uL (4.10-5.30); WHITE BLOOD CELL COUNT,WBC 5.50 K/uL (3.9-11.3)
[2025-02-22 06:19] LABS: A/G RATIO 0.5 (0.9-1.6); ALANINE AMINOTRANSFERASE,ALT 21.0 IU/L (14-63); ASPARTATE AMNIOTRANSFERASE,AST 56.0 IU/L (15-37); BILIRUBIN TOTAL 0.5 mg/dL (0.2-1.0); BLOOD UREA NITROGEN,BUN 2.0 mg/dL (7.0-18.0); CARBON DIOXIDE,CO2 25.2 mmol/L (21.0-32.0); CHLORIDE,CL 112.0 mmol/L (98-107); CREATININE 0.6 mg/dL (0.6-1.0); EST CRCL DRUG DOSING (CG) 99.82 mL/min; GLUCOSE RANDOM 85.0 mg/dL (74-106); POTASSIUM,K 3.5 mmol/L (3.5-5.1); PROTEIN TOTAL,TP 5.1 g/dL (6.4-8.2); SODIUM,NA 146.0 mmol/L (136-145)
[2025-02-22 06:33] LABS: ESTIMATED GFR 109.0 mL/min (>60)
[2025-02-22] MEDS: Venlafaxine 75 MG Cap.ER PO SCH (08:05)
[2025-02-22] MEDS: cefTRIAXone 2 GM in Water For Injection, Sterile 20 ML IVPUSH SCH (15:40)
[2025-02-23 05:38] LABS: BASOPHILS ABSOLUTE AUTO 0.04 K/uL (0.00-0.20); BASOPHILS PERCENT AUTO 1.2 % (0.0-1.0); EOSINOPHILS ABSOLUTE AUTO 0.24 K/uL (0.00-0.45); EOSINOPHILS PERCENT AUTO 7.2 % (0.0-6.0); IMMATURE GRAN ABSOLUTE AUTO 0.00 K/uL (0.00-0.05); IMMATURE GRAN PERCENT AUTO 0.0 % (0.0-0.4); LYMPHOCYTES ABSOLUTE AUTO 1.40 K/uL (1.00-4.80); LYMPHOCYTES PERCENT AUTO 42.0 % (24.0-44.0); MEAN PLATELET VOLUME 9.7 fL (9.4-12.3); MONOCYTES ABSOLUTE AUTO 0.37 K/uL (0.00-0.80); MONOCYTES PERCENT AUTO 11.1 % (0.0-8.0); NEUTROPHILS ABSOLUTE AUTO 1.28 K/uL (1.80-7.70); NEUTROPHILS PERCENT AUTO 38.5 % (41.0-71.0); NRBC ABSOLUTE 0.00 K/uL (0.00-0.02); NRBC PERCENT 0.0 /100WBC (0.0-0.2); PLATELET COUNT,PLT 241 K/uL (150-400); RED BLOOD CELL COUNT 2.74 M/uL (4.10-5.30); WHITE BLOOD CELL COUNT,WBC 3.33 K/uL (3.9-11.3)
[2025-02-23 06:13] LABS: BLOOD UREA NITROGEN,BUN 2.0 mg/dL (7.0-18.0); CARBON DIOXIDE,CO2 26.9 mmol/L (21.0-32.0); CHLORIDE,CL 110.0 mmol/L (98-107); CREATININE 0.5 mg/dL (0.6-1.0); EST CRCL DRUG DOSING (CG) 119.78 mL/min; GLUCOSE RANDOM 79.0 mg/dL (74-106); PHOSPHORUS 3.6 mg/dL (2.6-4.7); POTASSIUM,K 3.6 mmol/L (3.5-5.1); SODIUM,NA 144.0 mmol/L (136-145)
[2025-02-23 06:19] LABS: ESTIMATED GFR 113.0 mL/min (>60)
[2025-02-23] MEDS ORDERED: Magnesium Sulfate/Water 2 GM/50 ML Premix Bag IV ONE (07:30)
[2025-02-23] MEDS: Magnesium Sulfate 2 GM/50 mL 2 GM in Premix Bag 1 BAG IV ONE (08:22)
[2025-02-23] MEDS: Furosemide 40 MG/4 ML VIAL IVPUSH SCH (08:22)
[2025-02-24 05:51] LABS: BASOPHILS ABSOLUTE AUTO 0.04 K/uL (0.00-0.20); BASOPHILS PERCENT AUTO 1.2 % (0.0-1.0); EOSINOPHILS ABSOLUTE AUTO 0.24 K/uL (0.00-0.45); EOSINOPHILS PERCENT AUTO 6.9 % (0.0-6.0); IMMATURE GRAN ABSOLUTE AUTO 0.00 K/uL (0.00-0.05); IMMATURE GRAN PERCENT AUTO 0.0 % (0.0-0.4); LYMPHOCYTES ABSOLUTE AUTO 1.46 K/uL (1.00-4.80); LYMPHOCYTES PERCENT AUTO 42.1 % (24.0-44.0); MEAN PLATELET VOLUME 9.6 fL (9.4-12.3); MONOCYTES ABSOLUTE AUTO 0.44 K/uL (0.00-0.80); MONOCYTES PERCENT AUTO 12.7 % (0.0-8.0); NEUTROPHILS ABSOLUTE AUTO 1.29 K/uL (1.80-7.70); NEUTROPHILS PERCENT AUTO 37.1 % (41.0-71.0); NRBC ABSOLUTE 0.00 K/uL (0.00-0.02); NRBC PERCENT 0.0 /100WBC (0.0-0.2); PLATELET COUNT,PLT 226 K/uL (150-400); RED BLOOD CELL COUNT 2.66 M/uL (4.10-5.30); WHITE BLOOD CELL COUNT,WBC 3.47 K/uL (3.9-11.3)
[2025-02-24 06:12] LABS: BLOOD UREA NITROGEN,BUN 2.0 mg/dL (7.0-18.0); CARBON DIOXIDE,CO2 30.2 mmol/L (21.0-32.0); CHLORIDE,CL 105.0 mmol/L (98-107); CREATININE 0.5 mg/dL (0.6-1.0); EST CRCL DRUG DOSING (CG) 119.78 mL/min; GLUCOSE RANDOM 80.0 mg/dL (74-106); PHOSPHORUS 3.8 mg/dL (2.6-4.7); POTASSIUM,K 3.4 mmol/L (3.5-5.1); SODIUM,NA 136.0 mmol/L (136-145)
[2025-02-24 06:23] LABS: ESTIMATED GFR 113.0 mL/min (>60)
[2025-02-24] MEDS: Potassium Chloride 20 MEQ Tab.ER PO ONE (10:21)
[2025-02-24 11:28] VITALS: BP 128/80; PULSE 89
== END 2025-02-24 10:35 | disposition home or self-care (01) | DRG 720 ==
LOC: MW.ED 12:46 → MW.MS 15:43
PROVIDERS: ADMIT Internal Medicine; ATTEND Internal Medicine
DX: A41.9 Sepsis, unspecified organism (principal); J18.9 Pneumonia, unspecified organism; C50.919 Malignant neoplasm of unspecified site of unspecified female breast; I10 Essential (primary) hypertension; E86.0 Dehydration; K21.9 Gastro-esophageal reflux disease without esophagitis; F41.9 Anxiety disorder, unspecified; E53.8 Deficiency of other specified B group vitamins; F32.A Depression, unspecified; E66.9 Obesity, unspecified; Z68.34 Body mass index [BMI] 34.0-34.9, adult; Z86.16 Personal history of COVID-19; Z98.890 Other specified postprocedural states; Z79.899 Other long term (current) drug therapy; Z90.49 Acquired absence of other specified parts of digestive tract; Z90.10 Acquired absence of unspecified breast and nipple
CPT/HCPCS: 36415; 71046; 71046-26; 80048; 80053; 81003; 83605; 83735; 83880; 84100; 85025; 87040; 87428-QW; 93306; 96374; 99284-25; 99285; A4216; A9270-GY; J0456; J0696; J1938; J2405; J3475; J7030; J7050

== ENCOUNTER 2025-04-11 05:21 | Emergency (ER) | payer BC ==
[2025-04-11] MEDS: Sodium Chloride 0.9% 2.5 ML Syringe FLUSH PRN (05:50)
[2025-04-11] MEDS: Sodium Chloride 0.9% 10 ML Syringe FLUSH PRN (05:50)
[2025-04-11] MEDS: Pantoprazole 80 MG in Sodium Chloride 0.9% 20 ML IVPUSH ONE (05:52)
[2025-04-11 05:56] LABS: MEAN PLATELET VOLUME 10.1 fL (9.4-12.3); NRBC ABSOLUTE 0.00 K/uL (0.00-0.02); NRBC PERCENT 0.0 /100WBC (0.0-0.2); PLATELET COUNT,PLT 264 K/uL (150-400); RED BLOOD CELL COUNT 2.09 M/uL (4.10-5.30)
[2025-04-11 06:01] LABS: WHITE BLOOD CELL COUNT,WBC 56.35 K/uL (3.9-11.3)
[2025-04-11 06:17] LABS: A/G RATIO 0.5 (0.9-1.6); ALANINE AMINOTRANSFERASE,ALT 22 IU/L (14-63); ASPARTATE AMNIOTRANSFERASE,AST 48 IU/L (15-37); BILIRUBIN TOTAL 0.9 mg/dL (0.2-1.0); BLOOD UREA NITROGEN,BUN 21 mg/dL (7.0-18.0); CARBON DIOXIDE,CO2 27.1 mmol/L (21.0-32.0); CHLORIDE,CL 101 mmol/L (98-107); CREATININE 1.0 mg/dL (0.6-1.0); GLUCOSE RANDOM 170 mg/dL (74-106); POTASSIUM,K 3.7 mmol/L (3.5-5.1); PROTEIN TOTAL,TP 5.0 g/dL (6.4-8.2); SODIUM,NA 139 mmol/L (136-145)
[2025-04-11 06:21] LABS: INR 1.69 (0.86-1.11); PTT,PARTIAL THROMBOPLSTIN TIME 26.6 SEC (23.9-30.7)
[2025-04-11 06:22] LABS: BASOPHILS ABSOLUTE MAN 0.56 K/uL (0.00-0.20); BASOPHILS PERCENT MAN 1 % (0-1); EOSINOPHILS ABSOLUTE MAN 0.00 K/uL (0.00-0.45); EOSINOPHILS PERCENT MAN 0 % (0-6); LYMPHOCYTES ABSOLUTE MAN 5.07 K/uL (1.00-4.80); LYMPHOCYTES PERCENT MAN 9 % (24-44); MONOCYTES ABSOLUTE MAN 0.00 K/uL (0.00-0.80); MONOCYTES PERCENT MAN 0 % (0-8); SEG NEUTROPHILS ABSOLUTE MAN 50.72 K/uL (1.80-7.70); SEG NEUTROPHILS PERCENT MAN 90 % (41-71)
[2025-04-11] MEDS: Iopamidol 755 MG/ML 500 ML Multipack Bottle IVPUSH STA (06:22)
[2025-04-11] MEDS: cefTRIAXone 2 GM in Water For Injection, Sterile 20 ML IVPUSH ONE (06:38)
[2025-04-11 07:03] LABS: ESTIMATED GFR 68 mL/min (>60)
[2025-04-11 08:06] LABS: LACTIC ACID 5.1 mmol/L (0.4-2.0)
[2025-04-11] MEDS ORDERED: Norepinephrine Bit/D5W Premix 4 MG/250 ML BAG IV SCH (08:45)
[2025-04-11 10:26] VITALS: BP 128/70; PULSE 120
[2025-04-11] MEDS: Ondansetron 4 MG/2 ML SDV IVPUSH ONE (10:46)
== END 2025-04-11 10:55 ==
LOC: MW.ED 05:21
DX: K92.2 Gastrointestinal hemorrhage, unspecified (principal); I10 Essential (primary) hypertension; K21.9 Gastro-esophageal reflux disease without esophagitis; Z86.16 Personal history of COVID-19; Z90.49 Acquired absence of other specified parts of digestive tract; Z91.048 Other nonmedicinal substance allergy status; Z79.899 Other long term (current) drug therapy
CPT/HCPCS: 36415; 36430; 71045; 74177; 80053; 83605; 83690; 84484; 85025; 85610; 85730; 86850; 86900; 86901; 86920; 87040; 87428; 96361; 96374; 96375; 99285; A4216; J0696; J2405; J2470; J7030; P9016; Q9967